=== PATIENT | female | born 1945 | race Caucasian/White ===

== ENCOUNTER 2022-06-07 15:52 | Emergency (ER) | payer MEDICARE, OTHER, SELFPAY ==
[2022-06-07 16:07] VITALS: BP 101/58; PULSE 88; O2SAT 97; BMI 16.8
[2022-06-07 16:14] VITALS: BP 115/78; PULSE 79; RESP 22; TEMP 36.5; O2SAT 97
--- NOTE | 2022-06-07 16:29 | ED_ITS ---
HPI - Syncope General Chief Complaint: General Medical Stated Complaint: diaphoretic Time Seen by Provider: 06/07/22 16:28 Source: patient Limitations: no limitations History of Present Illness HPI narrative: Patient very poor historian and rude to the staff history of lung cancer followed by Rebeka villarreal at [place] was at shopping store where she felt lightheaded and passed out her friend was next to her patient did not fall no injuries no seizures patient denies any chest pain or palpitation. Patient had lab work done lately and was told that sodium is low yesterday. At this time patient is feeling back to normal Related Data Allergies Allergy/AdvReac Type Severity Reaction Status Date / Time Penicillins AdvReac Anaphylaxis Verified 06/07/22 17:34 Review of Systems Review of Systems: Yes all other systems are reviewed and are negative [facility] Past Medical History Medical History (Updated 06/08/22 @ 00:01 by Adeline Plata) Lung cancer Social History Social History Alcohol intake: never Patient Tobacco Use Status: Never used Tobacco Use of substances other than those prescribed or required for medical reasons: No Advance Directives: No Advance Directives Information Provided: Yes Physical Exam Vital Signs: Vital Signs: Last Vital Signs Temp 97.7 F 06/07/22 16:14 Pulse 86 06/07/22 19:16 Resp 15 06/07/22 18:32 BP 148/92 H 06/07/22 19:16 Pulse Ox 97 06/07/22 18:32 O2 Del Method 06/07/22 18:32 BMI result Body Mass Index 16.8 Appearance: Alert. Oriented X3. No acute distress. Eyes: PERRLA, No Nystagmus ENT: Pharynx normal. Oral Mucosa moist Neck: Normal inspection. Neck supple. CVS: Normal heart rate and rhythm. Pulses normal. Respiratory: No respiratory distress. Equal air entry bilateral, no wheezing/rales/rhonchi Abdomen: Soft and nontender. Bowel sounds are present, no mass palpable, no CVA tenderness Skin: Skin warm and dry. Normal skin color. Normal skin turgor. Extremities: No lower extremity edema. No calf tenderness Neuro: Oriented X 3. No motor deficit. No sensory deficit.No cerebellar signs , cranial nerves II-XII intact MDM - Syncope MDM Narrative Medical decision making narrative: Patient with stable labs no orthostatics had any syncope episode likely from medics source feeling much better after IV fluids discharge patient home patient's sodium is 134 potassium 5.3 EKG without any ischemic changes no cardiac arrhythmias noticed high sensitive troponin negative Lab Data Attestation: I reviewed the patient's lab results. Result diagrams: 06/07/22 17:06 06/07/22 17:06 Labs: Lab Results 06/07/22 06/07/22 06/07/22 Range/Units 17:06 17:06 17:06 WBC 14.8 H (4.8-10.8) X10*3/uL RBC 4.60 (4.20-5.50) X10*6/uL Hgb 13.9 (12.0-16.0) g/dl Hct 42.0 (37.0-47.0) % MCV 91.3 (80.0-98.0) fL MCH 30.2 (27.0-33.0) pg MCHC 33.1 (31.0-35.0) g/dl RDW 13.0 (11.0-16.0) % Plt Count 176 (160-400) X10*3/uL MPV 9.7 (9.4-12.3) fL Immature Gran % (Auto) 0.5 H (0.0-0.4) % Neut % (Auto) 87.4 H (45-73) % Lymph % (Auto) 5.9 L (20-40) % [place] % (Auto) 5.6 (2-11) % Eos % (Auto) 0.3 (0-4) % Baso % (Auto) 0.3 (0-2) % Lymph # (Auto) 0.9 L (1.2-4.9) X10*3/uL [place] # (Auto) 0.8 (0.1-1.2) X10*3/uL Eos # (Auto) 0.0 (0.0-0.4) X10*3/uL Baso # (Auto) 0.0 (0.0-0.2) X10*3/uL Abs Immat Gran (auto) 0.07 H (0.00-0.03) X10*3/uL Absolute Neuts (auto) 13.0 H (2.0-8.3) x10*3/uL Absolute Nucleated RBC 0.000 (0.0-0.012) X10*3/uL Nucleated RBC % (auto) 0.0 (0.0-0.2) /100WBC PT (10.0-13.1) SEC INR (0.9-1.1) D-Dimer High Sensitivty NG/ML Sodium 134 L (135-145) mmol/L Potassium 5.3 H (3.3-5.1) mmol/L Chloride 100 (96-108) mmol/L Carbon Dioxide 22 (22-29) mmol/L Anion Gap 17 (12-20) BUN 26 H (9-16) mg/dL Creatinine 0.97 (0.5-1.4) mg/dL Estim Creat Clear Calc 33.0 Estimated GFR 56 Random Glucose 120 H (60-115) mg/dL Calcium 9.2 (8.4-10.2) mg/dL Magnesium 2.0 (1.6-2.6) mg/dL Total Bilirubin 0.7 (0.0-1.0) mg/dL AST 56 H (5-31) U/L ALT 33 H (0-31) U/L Alkaline Phosphatase 63 (39-117) U/L Troponin I High Sens < 3.5 (<3.5-17.0) ng/L Total Protein 6.6 (6.5-8.0) g/dL Albumin 4.4 (3.5-5.0) g/dL Urine Color Urine Appearance Urine pH (5.0-8.0) Ur Specific [place] (1.005-1.025) Urine Protein (NEG-TRACE) MG/DL Urine Glucose (UA) (NEG) MG/DL Urine Ketones (NEG) MG/DL Urine Blood (NEG) Urine Nitrite (NEG) Ur Leukocyte Esterase (NEG) COVID-19 (REAGAN) (Negative) COVID-19 Clin Com 06/07/22 06/07/22 06/07/22 Range/Units 17:06 17:06 17:06 WBC (4.8-10.8) X10*3/uL RBC (4.20-5.50) X10*6/uL Hgb (12.0-16.0) g/dl Hct (37.0-47.0) % MCV (80.0-98.0) fL MCH (27.0-33.0) pg MCHC (31.0-35.0) g/dl RDW (11.0-16.0) % Plt Count (160-400) X10*3/uL MPV (9.4-12.3) fL Immature Gran % (Auto) (0.0-0.4) % Neut % (Auto) (45-73) % Lymph % (Auto) (20-40) % [place] % (Auto) (2-11) % Eos % (Auto) (0-4) % Baso % (Auto) (0-2) % Lymph # (Auto) (1.2-4.9) X10*3/uL [place] # (Auto) (0.1-1.2) X10*3/uL Eos # (Auto) (0.0-0.4) X10*3/uL Baso # (Auto) (0.0-0.2) X10*3/uL Abs Immat Gran (auto) (0.00-0.03) X10*3/uL Absolute Neuts (auto) (2.0-8.3) x10*3/uL Absolute Nucleated RBC (0.0-0.012) X10*3/uL Nucleated RBC % (auto) (0.0-0.2) /100WBC PT 11.2 (10.0-13.1) SEC INR 1.0 (0.9-1.1) D-Dimer High Sensitivty 210 NG/ML Sodium (135-145) mmol/L Potassium (3.3-5.1) mmol/L Chloride (96-108) mmol/L Carbon Dioxide (22-29) mmol/L Anion Gap (12-20) BUN (9-16) mg/dL Creatinine (0.5-1.4) mg/dL Estim Creat Clear Calc Estimated GFR Random Glucose (60-115) mg/dL Calcium (8.4-10.2) mg/dL Magnesium (1.6-2.6) mg/dL Total Bilirubin (0.0-1.0) mg/dL AST (5-31) U/L ALT (0-31) U/L Alkaline Phosphatase (39-117) U/L Troponin I High Sens (<3.5-17.0) ng/L Total Protein (6.5-8.0) g/dL Albumin (3.5-5.0) g/dL Urine Color Urine Appearance Urine pH (5.0-8.0) Ur Specific [place] (1.005-1.025) Urine Protein (NEG-TRACE) MG/DL Urine Glucose (UA) (NEG) MG/DL Urine Ketones (NEG) MG/DL Urine Blood (NEG) Urine Nitrite (NEG) Ur Leukocyte Esterase (NEG) COVID-19 (REAGAN) Negative (Negative) COVID-19 Clin Com See Note 06/07/22 Range/Units 18:21 WBC (4.8-10.8) X10*3/uL RBC (4.20-5.50) X10*6/uL Hgb (12.0-16.0) g/dl Hct (37.0-47.0) % MCV (80.0-98.0) fL MCH (27.0-33.0) pg MCHC (31.0-35.0) g/dl RDW (11.0-16.0) % Plt Count (160-400) X10*3/uL MPV (9.4-12.3) fL Immature Gran % (Auto) (0.0-0.4) % Neut % (Auto) (45-73) % Lymph % (Auto) (20-40) % [place] % (Auto) (2-11) % Eos % (Auto) (0-4) % Baso % (Auto) (0-2) % Lymph # (Auto) (1.2-4.9) X10*3/uL [place] # (Auto) (0.1-1.2) X10*3/uL Eos # (Auto) (0.0-0.4) X10*3/uL Baso # (Auto) (0.0-0.2) X10*3/uL Abs Immat Gran (auto) (0.00-0.03) X10*3/uL Absolute Neuts (auto) (2.0-8.3) x10*3/uL Absolute Nucleated RBC (0.0-0.012) X10*3/uL Nucleated RBC % (auto) (0.0-0.2) /100WBC PT (10.0-13.1) SEC INR (0.9-1.1) D-Dimer High Sensitivty NG/ML Sodium (135-145) mmol/L Potassium (3.3-5.1) mmol/L Chloride (96-108) mmol/L Carbon Dioxide (22-29) mmol/L Anion Gap (12-20) BUN (9-16) mg/dL Creatinine (0.5-1.4) mg/dL Estim Creat Clear Calc Estimated GFR Random Glucose (60-115) mg/dL Calcium (8.4-10.2) mg/dL Magnesium (1.6-2.6) mg/dL Total Bilirubin (0.0-1.0) mg/dL AST (5-31) U/L ALT (0-31) U/L Alkaline Phosphatase (39-117) U/L Troponin I High Sens (<3.5-17.0) ng/L Total Protein (6.5-8.0) g/dL Albumin (3.5-5.0) g/dL Urine Color YELLOW Urine Appearance CLEAR Urine pH 6.0 (5.0-8.0) Ur Specific [place] 1.010 (1.005-1.025) Urine Protein NEG (NEG-TRACE) MG/DL Urine Glucose (UA) NEG (NEG) MG/DL Urine Ketones 15 (NEG) MG/DL Urine Blood NEG (NEG) Urine Nitrite NEG (NEG) Ur Leukocyte Esterase NEG (NEG) COVID-19 (REAGAN) (Negative) COVID-19 Clin Com ECG Data Attestation: I personally reviewed and interpreted this ECG as follows: Interpretation: Normal sinus rhythm heart rate 77 beats per minute normal interval normal axis no acute ST wave changes no acute skin Discharge Plan Discharge Clinical Impression: Near syncope Patient Disposition: Home, Self-Care Instructions: Heat Exhaustion (ED), Near Syncope (ED) Additional Instructions: Drink plenty of fluid Stay in cool/shaded area Follow-up with your PCP Interventions: ED Discharge Assessment Last Done: 06/07/22 19:45 Discharge Date/Time: 06/07/22 19:46
--- NOTE | 2022-06-07 16:40 | ECG_ITS ---
Test Reason : SYNCOPE Blood Pressure : / mmHG Vent. Rate : 077 BPM Atrial Rate : 077 BPM P-R Int : 102 ms QRS Dur : 056 ms QT Int : 418 ms P-R-T Axes : 062 006 016 degrees QTc Int : 473 ms Sinus rhythm with short NH with Premature ventricular complexes Otherwise normal ECG No previous ECGs available Referred By: José Manuel Ochoa Electronically Signed By:KEN BAUMANN MD
[2022-06-07] MEDS: 0.9 % Sodium Chloride 1,000 ML 999 ML IV (16:59)
[2022-06-07 17:12] LABS: MANUAL DIFF FLAG NO
[2022-06-07 17:16] LABS: Basophils Percent Auto 0.3 % (0-2); Eosinophils Percent Auto 0.3 % (0-4); Hemoglobin 13.9 g/dl (12.0-16.0); Imm Gran Abs Auto 0.07 X10*3/uL (0.00-0.03); Imm Gran Pct Auto 0.5 % (0.0-0.4); Lymphocytes Absolute Auto 0.9 X10*3/uL (1.2-4.9); Lymphocytes Percent Auto 5.9 % (20-40); Mean Corpuscular HGB Conc 33.1 g/dl (31.0-35.0); Mean Corpuscular Hemoglobin 30.2 pg (27.0-33.0); Mean Corpuscular Volume 91.3 fL (80.0-98.0); Mean Platelet Volume 9.7 fL (9.4-12.3); Monocytes Absolute Auto 0.8 X10*3/uL (0.1-1.2); Monocytes Percent Auto 5.6 % (2-11); Neutrophils Percent Auto 87.4 % (45-73); Platelet Count 176 X10*3/uL (160-400); White Blood Count 14.8 X10*3/uL (4.8-10.8)
[2022-06-07 17:25] LABS: Prothrombin Time 11.2 SEC (10.0-13.1)
[2022-06-07 17:27] LABS: D Dimer High Sensitivity 210 NG/ML
[2022-06-07 17:28] LABS: COVID-19 Test Negative (Negative); IDNOW Serial# 16C4AD1C
[2022-06-07 17:39] LABS: Alanine Aminotransferase 33 U/L (0-31); Albumin Level 4.4 g/dL (3.5-5.0); Alkaline Phosphatase 63 U/L (39-117); Anion Gap 17 (12-20); Aspartate Amino Transferase 56 U/L (5-31); Bilirubin Total 0.7 mg/dL (0.0-1.0); Blood Urea Nitrogen 26 mg/dL (9-16); Calcium 9.2 mg/dL (8.4-10.2); Carbon Dioxide 22 mmol/L (22-29); Chloride 100 mmol/L (96-108); Estimated Glomerular Filt Rate 56; Glucose Random 120 mg/dL (60-115); Potassium 5.3 mmol/L (3.3-5.1); Sodium 134 mmol/L (135-145); Total Protein 6.6 g/dL (6.5-8.0)
[2022-06-07 17:42] LABS: Troponin-I High Sensitivity < 3.5 ng/L (<3.5-17.0)
[2022-06-07 18:32] VITALS: BP 126/90; PULSE 77; RESP 15; O2SAT 97
[2022-06-07 18:33] LABS: Appearance Urine CLEAR; Color Urine YELLOW; Glucose Urine UA NEG (NEG); Leukocyte Esterase Urine NEG (NEG); Nitrite Urine NEG (NEG); Urine Blood NEG (NEG); Urine Ketones 15 MG/DL (NEG); Urine Protein NEG (NEG-TRACE)
[2022-06-07 19:15] VITALS: BP 147/96; BP 151/92; PULSE 80; PULSE 82
[2022-06-07 19:16] VITALS: BP 148/92; PULSE 86
== END 2022-06-07 19:46 | disposition home or self-care (01) ==
PROVIDERS: Emergency Provider Internal Medicine
DX: R55 Syncope and collapse (principal); Z20.822 Contact with and (suspected) exposure to COVID-19; Z85.118 Personal history of other malignant neoplasm of bronchus and lung
CPT/HCPCS: 36415; 80053; 81003; 83735; 84484; 85025; 85379; 85610; 87635; 93005; 96360; 99284

== ENCOUNTER 2024-05-23 18:59 | Emergency (ER) | payer MEDICARE, OTHER, SELFPAY ==
--- NOTE | 2024-05-23 | ECG_ITS ---
Test Reason : SYNCOPE Blood Pressure : / mmHG Vent. Rate : 065 BPM Atrial Rate : 065 BPM P-R Int : 128 ms QRS Dur : 072 ms QT Int : 448 ms P-R-T Axes : 064 017 090 degrees QTc Int : 465 ms Normal sinus rhythm Nonspecific ST and T wave abnormality Abnormal ECG When compared with ECG of 07-JUN-2022 17:43, Premature ventricular complexes are no longer Present Referred By: Generic ED Physician Electronically Signed By:KEN BAUMANN MD
[2024-05-23 19:10] VITALS: BP 124/70; BP 146/76; PULSE 62; PULSE 64; RESP 16; TEMP 36.2; O2SAT 100; O2SAT 94; BMI 19.3
[2024-05-23 19:47] LABS: MANUAL DIFF FLAG NO
[2024-05-23 19:49] LABS: Basophils Absolute Auto 0.1 X10*3/uL (0.0-0.2); Basophils Percent Auto 0.4 % (0-2); Eosinophils Absolute Auto 0.1 X10*3/uL (0.0-0.4); Eosinophils Percent Auto 0.8 % (0-4); Hematocrit 40.9 % (37.0-47.0); Hemoglobin 13.6 g/dl (12.0-16.0); Imm Gran Abs Auto 0.07 X10*3/uL (0.00-0.03); Imm Gran Pct Auto 0.5 % (0.0-0.4); Lymphocytes Absolute Auto 1.4 X10*3/uL (1.2-4.9); Lymphocytes Percent Auto 10.2 % (20-40); Mean Corpuscular HGB Conc 33.3 g/dl (31.0-35.0); Mean Corpuscular Hemoglobin 31.2 pg (27.0-33.0); Mean Corpuscular Volume 93.8 fL (80.0-98.0); Mean Platelet Volume 9.8 fL (9.4-12.3); Monocytes Absolute Auto 0.7 X10*3/uL (0.1-1.2); Monocytes Percent Auto 4.9 % (2-11); Neutrophils Absolute Auto 11.6 x10*3/uL (2.0-8.3); Neutrophils Percent Auto 83.2 % (45-73); Platelet Count 158 X10*3/uL (160-400); Red Blood Count 4.36 X10*6/uL (4.20-5.50); Red Cell Distribution Width 13.2 % (11.0-16.0); White Blood Count 13.9 X10*3/uL (4.8-10.8)
[2024-05-23 20:01] LABS: Alanine Aminotransferase 17 U/L (0-31); Albumin Level 4.4 g/dL (3.5-5.0); Alkaline Phosphatase 73 U/L (39-117); Anion Gap 19 (12-20); Aspartate Amino Transferase 26 U/L (5-31); Bilirubin Direct 0.2 mg/dL (0.0-0.5); Bilirubin Total 0.7 mg/dL (0.0-1.0); Blood Urea Nitrogen 20 mg/dL (9-16); Calcium 9.5 mg/dL (8.4-10.2); Carbon Dioxide 21 mmol/L (22-29); Chloride 107 mmol/L (96-108); Creatinine Clr Calc Pharmacy 30.9; Estimated Glomerular Filt Rate 47; Glucose Random 160 mg/dL (60-115); Lipase 16 U/L (8-78); Potassium 3.5 mmol/L (3.3-5.1); Sodium 143 mmol/L (135-145); Total Protein 6.6 g/dL (6.5-8.0)
[2024-05-23 20:08] LABS: Troponin-I High Sensitivity 6.4 ng/L (<3.5-17.0)
[2024-05-23 20:50] LABS: Appearance Urine Cloudy; Color Urine Dark Yellow; Glucose Urine UA 100 mg/dL (Negative); Leukocyte Esterase Urine Negative (Negative); Nitrite Urine Negative (Negative); Specific Gravity - Urine >= 1.030 (1.005-1.025); Urine Blood Negative (Negative); Urine Ketones Trace mg/dL (Negative); Urine Protein Trace mg/dL (Neg-Trace)
--- NOTE | 2024-05-23 21:55 | PC.NURSE ---
Son Per [phone] left number, to be called if patient needs a ride home.
[2024-05-23 22:20] VITALS: BP 150/83; PULSE 61; RESP 16; TEMP 36.4; O2SAT 99
--- NOTE | 2024-05-23 22:24 | ED_ITS ---
HPI - General Adult General Chief complaint: Syncope Stated complaint: syncope Time Seen by Provider: 05/23/24 22:13 Source: patient, EMS and RN notes reviewed Mode of arrival: EMS Limitations: altered mental status History of Present Illness ED Provider: missy [facility] narrative: Patient is a 78-year-old female with lung cancer followed by [facility] emergency department after witnessed syncopal episode at [employer] prior to arrival. According to EMS report, witnesses lowered patient to the floor and she did not have a head strike. She is not anticoagulated. Patient denies any complaints and states that she wants to leave the emergency department. She denies chest pain, palpitations, shortness of breath. Denies dizziness or lightheadedness. Denies headache or changes in vision. Patient's son reports concern for onset of dementia. Reports history of similar episodes in the past where patient has left her home to go on a walk and has had a syncopal episode. Patient states that she lives home alone. Patient is refusing to answer questions regarding place and time. Son states that it is typical of patient to refuse to answer questions even if she does know the correct answer. Patient had a physical with PCP this morning and son confirms this. complaint: syncope Onset (ago): minute(s) Associated symptoms: denies other symptoms Treatments prior to arrival: none Related Data Allergies Allergy/AdvReac Type Severity Reaction Status Date / Time Penicillins AdvReac Severe Anaphylaxis Verified 05/23/24 19:13 Review of Systems 2 Review of Systems: As per HPI. Yes all other systems are reviewed and are negative Constitutional: Constitutional: Reports as per HPI [facility] Past Medical History Medical History (Updated 05/23/24 @ 23:55 by Stephany Torres NP) Lung cancer Social History Social History Alcohol intake: never Patient Tobacco Use Status: Never used Tobacco Smoked in Last 30 Days: No Advance Directives: Yes Advance Directives Information Provided: No Advance Directives on File: No Physical Exam ED Vital Signs: Vital Signs - 24 hr 05/23/24 19:10 05/23/24 22:20 05/23/24 22:47 Temperature 97.2 F 97.6 F Pulse Rate 62 61 68 Respiratory Rate 16 16 Blood Pressure 146/76 H 150/83 H 155/97 H Pulse Oximetry 100 99 Oxygen Delivery Method Room Air Room Air 05/23/24 22:48 05/23/24 22:48 Temperature Pulse Rate 74 80 Respiratory Rate Blood Pressure 136/115 H 173/88 H Pulse Oximetry Oxygen Delivery Method BMI result Body Mass Index 19.3 Vital signs have been reviewed and appear to be correct. Blood pressure elevated. Heart rate normal. Respiratory rate normal. Temperature normal. Oxygen saturation normal. Const Other: Patient able to state she is at the hospital, but refusing to state which hospital. Reports that she is refusing to state the date. General: no acute distress, alert and awake Nutritional Appearance: average body habitus Orientation/consciousness: oriented to person Limitations: behavioral limitations HENMT Head: Yes normocephalic and Yes atraumatic Ears: external ears normal General nose exam: Normal external nose present Face and sinus: Yes face symmetric Mouth: oropharynx normal and moist mucous membranes Throat: Yes uvula midline Eyes Pupils: Equal, round and reactive pupils present Neck Neck: Yes normal visual inspection and Yes supple Resp Effort & Inspection: normal respiratory effort and able to speak in complete sentences Auscultation: clear to auscultation bilaterally Cardio Rate: regular rate Rhythm: regular rhythm Heart sounds: S1 normal heart sound present and S2 normal heart sound present GI Palpation (GI): Soft to palpation and nontender Auscultation: normoactive bowel sounds General: Yes no CVA tenderness Back/Spine/Pelvis Back: no CVA tenderness Skin General skin exam: elasticity normal and turgor normal Neuro General: oriented to person, moves all extremities, no focal motor deficits and CN's II-XI intact bilaterally Cranial nerves: Yes Equal, round and reactive pupils present Extrem General: Yes full ROM, Yes no pedal edema and Yes no calf tenderness Psych Attitude: cooperative (minimally) Medical Decision Making Medical Decision Making MDM Narrative: Patient is a 78-year-old female with lung cancer followed by [facility] presenting emergency department after witnessed syncopal episode at [employer] prior to arrival. On exam patient is awake, A+Ox3, VS WNL, afebrile, normal neurological exam without focal deficits, physical exam findings as above. Given reported symptoms and physical exam findings, initial differential includes ACS, dehydration, electrolyte abnormality, cardiac arrhythmia, anemia, orthostatic intolerance, UTI. No red flag findings concerning for AAA rupture, aortic dissection, SAH/ICH. EKG shows normal sinus rhythm. Labs notable for mild leukocytosis, troponin of 6.4, repeat downtrending, no significant electrolyte abnormalities. No evidence of infection on urinalysis. Patient refusing any additional interventions. Son at bedside and in agreement with patient's refusals, is willing and comfortable with taking patient home. Differential Diagnosis Differential Diagnoses: The differential diagnosis associated with the presentation includes As per [facility]. Admission/Observation Consideration of admission/observation: Escalation of care including admission/observation considered Patient would have been admitted to the hospital had their work up had any findings where hospital admission was appropriate and their clinical presentation warranted hospital admission. Lab Data [facility] Lab Attestation statement: I reviewed the patient's lab results. as per [facility] 05/23/24 19:43 05/23/24 19:43 Labs: Lab Results 05/23/24 05/23/24 05/23/24 Range/Units 19:43 20:43 22:38 WBC 13.9 H (4.8-10.8) X10*3/uL RBC 4.36 (4.20-5.50) X10*6/uL Hgb 13.6 (12.0-16.0) g/dl Hct 40.9 (37.0-47.0) % MCV 93.8 (80.0-98.0) fL MCH 31.2 (27.0-33.0) pg MCHC 33.3 (31.0-35.0) g/dl RDW 13.2 (11.0-16.0) % Plt Count 158 L (160-400) X10*3/uL MPV 9.8 (9.4-12.3) fL Immature Gran % (Auto) 0.5 H (0.0-0.4) % Neut % (Auto) 83.2 H (45-73) % Lymph % (Auto) 10.2 L (20-40) % [place] % (Auto) 4.9 (2-11) % Eos % (Auto) 0.8 (0-4) % Baso % (Auto) 0.4 (0-2) % Lymph # (Auto) 1.4 (1.2-4.9) X10*3/uL [place] # (Auto) 0.7 (0.1-1.2) X10*3/uL Eos # (Auto) 0.1 (0.0-0.4) X10*3/uL Baso # (Auto) 0.1 (0.0-0.2) X10*3/uL Abs Immat Gran (auto) 0.07 H (0.00-0.03) X10*3/uL Absolute Neuts (auto) 11.6 H (2.0-8.3) x10*3/uL Absolute Nucleated RBC 0.000 (0.0-0.012) X10*3/uL Nucleated RBC % (auto) 0.0 (0.0-0.2) /100WBC Sodium 143 (135-145) mmol/L Potassium 3.5 (3.3-5.1) mmol/L Chloride 107 (96-108) mmol/L Carbon Dioxide 21 L (22-29) mmol/L Anion Gap 19 (12-20) BUN 20 H (9-16) mg/dL Creatinine 1.11 (0.5-1.4) mg/dL Estim Creat Clear Calc 30.9 Estimated GFR 47 Random Glucose 160 H (60-115) mg/dL Calcium 9.5 (8.4-10.2) mg/dL Total Bilirubin 0.7 (0.0-1.0) mg/dL Direct Bilirubin 0.2 (0.0-0.5) mg/dL AST 26 (5-31) U/L ALT 17 (0-31) U/L Alkaline Phosphatase 73 (39-117) U/L Troponin I High Sens 6.4 5.2 (<3.5-17.0) ng/L Total Protein 6.6 (6.5-8.0) g/dL Albumin 4.4 (3.5-5.0) g/dL Lipase 16 (8-78) U/L Urine Color Dark Yellow Urine Appearance Cloudy Urine pH 5.0 (5.0-9.0) Ur Specific [place] >= 1.030 H (1.005-1.025) Urine Protein Trace (Neg-Trace) mg/dL Urine Glucose (UA) 100 H (Negative) mg/dL Urine Ketones Trace (Negative) mg/dL Urine Blood Negative (Negative) Urine Nitrite Negative (Negative) Ur Leukocyte Esterase Negative (Negative) Independent Interpretation I performed an independent interpretation of an: EKG (normal sinus rhythm, rate 65bpm, normal SC interval, no significant change from prior) Independent Historian Clinical information obtained from an independent historian. History obtained from or confirmed by: Other (son, Per) External Record Review External record reviewed: Inpatient record, Office record and Outpatient record Discharge Plan Discharge Clinical Impression: Syncope Patient Disposition: Home, Self-Care Instructions: Syncope (DC) Additional Instructions: You were evaluated in the emergency department today after an episode of syncope (fainting). Your evaluation including EKG, labs, and urinalysis did not show evidence of conditions requiring emergent medical treatment at this time. Follow up with your primary care provider within the next 1-2 days. Return to the emergency department if you develop chest pain, shortness of breath or difficulty breathing, palpitations, fever, dizziness or lightheadedness, severe headache, additional episodes of fainting or any other concerning symptoms. Print Language: [place]
[2024-05-23 22:47] VITALS: BP 155/97; PULSE 68
[2024-05-23 22:48] VITALS: BP 136/115; BP 173/88; PULSE 74; PULSE 80
[2024-05-23 23:21] LABS: Troponin-I High Sensitivity 5.2 ng/L (<3.5-17.0)
[2024-05-24 00:01] VITALS: BP 173/88; PULSE 80; RESP 18; TEMP 36.8; O2SAT 99
== END 2024-05-24 00:03 | disposition home or self-care (01) ==
PROVIDERS: Registered Nurse Emergency; Emergency Provider Internal Medicine
DX: R55 Syncope and collapse (principal); C34.90 Malignant neoplasm of unspecified part of unspecified bronchus or lung
CPT/HCPCS: 36415; 80053; 81003; 82248; 83690; 84484; 85025; 93005; 99284; 99285

== ENCOUNTER → 2024-05-23 19:33 | Outpatient (BNV) | payer MEDICARE, OTHER, SELFPAY | PROVIDERS: Emergency Provider Internal Medicine; Visit Provider Internal Medicine Cardiovascular Disease | DX: R94.31 Abnormal electrocardiogram [ECG] [EKG] (principal) | CPT/HCPCS: 93010 ==

== ENCOUNTER 2025-02-19 19:31 | Emergency (ER) | payer MEDICARE, OTHER, SELFPAY ==
[2025-02-19 19:38] VITALS: PULSE 75; O2SAT 98
[2025-02-19 19:49] VITALS: BP 159/110; PULSE 82; RESP 20; TEMP 36.9; O2SAT 97; BMI 18.7
--- NOTE | 2025-02-19 19:53 | ECG_ITS ---
Test Reason : SYNCOPE Blood Pressure : */* mmHG Vent. Rate : 66 BPM Atrial Rate : 66 BPM P-R Int : 106 ms QRS Dur : 68 ms QT Int : 444 ms P-R-T Axes : 26 13 64 degrees QTcB Int : 465 ms Sinus rhythm with short [place] with Premature supraventricular complexes Increased R/S ratio in V1, consider early transition or posterior infarct Abnormal ECG When compared with ECG of 23-May-2024 19:33, Premature supraventricular complexes are now Present Referred By: Generic ED Physician Electronically Signed By: KEN BAUMANN MD
--- NOTE | 2025-02-19 19:58 | MHC.EDTECH ---
Pt refusing to be moved to a room and have EKG done at this time. RN aware.
--- NOTE | 2025-02-19 20:21 | MHC.EDTECH ---
Pt family brought back to see pt. Pt now agreeable to be moved to room and EKG was done. Pt ambulated to bathroom with steady gait and no assist. UA collected and sent. Pt agreeable to have blood drawn after initially refusing. Pt still refusing to be changed over. RN aware
[2025-02-19 20:24] LABS: Basophils Absolute Auto 0.1 X10*3/uL (0.0-0.2); Basophils Percent Auto 0.7 % (0-2); Eosinophils Absolute Auto 0.1 X10*3/uL (0.0-0.4); Eosinophils Percent Auto 1.2 % (0-4); Hematocrit 39.2 % (37.0-47.0); Hemoglobin 13.2 g/dl (12.0-16.0); Imm Gran Abs Auto 0.03 X10*3/uL (0.00-0.03); Imm Gran Pct Auto 0.3 % (0.0-0.4); Lymphocytes Absolute Auto 1.2 X10*3/uL (1.2-4.9); Lymphocytes Percent Auto 13.6 % (20-40); MANUAL DIFF FLAG NO; Mean Corpuscular HGB Conc 33.7 g/dl (31.0-35.0); Mean Corpuscular Hemoglobin 31.4 pg (27.0-33.0); Mean Corpuscular Volume 93.3 fL (80.0-98.0); Mean Platelet Volume 9.6 fL (9.4-12.3); Monocytes Absolute Auto 0.7 X10*3/uL (0.1-1.2); Monocytes Percent Auto 7.7 % (2-11); Neutrophils Percent Auto 76.5 % (45-73); Platelet Count 150 X10*3/uL (160-400); Red Cell Distribution Width 12.9 % (11.0-16.0); White Blood Count 9.1 X10*3/uL (4.8-10.8)
[2025-02-19 20:25] LABS: Appearance Urine Clear; Color Urine Yellow; Glucose Urine UA Negative (Negative); Leukocyte Esterase Urine Moderate (2+) (Negative); Nitrite Urine Negative (Negative); PH 5.5 (5.0-9.0); UMIC TRIGGER UACC YES; Urine Blood Trace (Negative); Urine Ketones Trace mg/dL (Negative); Urine Protein Negative (Neg-Trace)
[2025-02-19 20:33] LABS: Bacteria Urine None Seen (None Seen); Hyaline Casts Urine 0-2 /LPF (0-2); RBC Urine 0-2 /HPF (0-2); Squamous Epithelial Cell Urine 0-2 /HPF (0-2); UACC Culture Trigger YES
[2025-02-19 20:39] LABS: Alanine Aminotransferase 20 U/L (0-31); Albumin Level 4.1 g/dL (3.5-5.0); Alkaline Phosphatase 78 U/L (39-117); Anion Gap 13 (12-20); Aspartate Amino Transferase 33 U/L (5-31); Bilirubin Total 0.5 mg/dL (0.0-1.0); Blood Urea Nitrogen 22 mg/dL (9-16); Carbon Dioxide 22 mmol/L (22-29); Chloride 109 mmol/L (96-108); Estimated Glomerular Filt Rate > 60; Glucose Random 97 mg/dL (60-115); Potassium 4.1 mmol/L (3.3-5.1); Sodium 140 mmol/L (135-145); Total Protein 6.1 g/dL (6.5-8.0)
[2025-02-19 20:46] LABS: Troponin-I High Sensitivity 3.9 ng/L (<3.5-17.0)
[2025-02-19] MEDS: Nitrofurantoin Monohyd/M-Cryst 100 MG CAPSULE PO (22:06)
[2025-02-19 22:08] VITALS: BP 182/93; PULSE 69
[2025-02-19 22:10] VITALS: BP 173/84; PULSE 72
[2025-02-19 22:13] VITALS: BP 171/76; PULSE 77
--- NOTE | 2025-02-19 22:16 | ED_ITS ---
HPI - General Adult General Chief complaint: Syncope Stated complaint: syncopal episode Time Seen by Provider: 02/19/25 21:36 Source: patient and family Limitations: no limitations and other (Mild cognitive impairment) History of Present Illness ED Provider: Mansi Valdez PA-C HPI narrative: 79-year-old female with underlying mild cognitive impairment presents after syncopal episode today. Patient was at the grocery store when she felt faint and began to collapse. She was caught and lowered to the ground. She did not fully lose consciousness. There was no head strike. The patient was not on a blood thinner. Patient states she did not eat today. Denies recent cough or cold symptoms, nausea vomiting diarrhea, dysuria, fever. Patient has had similar episodes in the past related to a urinary tract infection. Patient is here with family members who corroborate the story. Related Data Previous Rx's ?Medication ?Instructions ?Recorded nitrofurantoin 100 mg PO Q12H #13 caps 02/19/25 monohydrate/macrocrystals 100 mg capsule (Macrobid) Allergies Allergy/AdvReac Type Severity Reaction Status Date / Time Penicillins AdvReac Severe Anaphylaxis Verified 02/19/25 19:52 Review of Systems 2 Review of Systems: Yes all other systems are reviewed and are negative Constitutional: Constitutional: Denies fatigue, Denies fever(s) and Denies headache(s) ENT: Denies headache(s) Cardiovascular: Cardiovascular: Denies chest pain, Reports syncope and Denies dyspnea Respiratory: Respiratory: Denies cough and Denies dyspnea Gastrointestinal: Gastrointestinal: Denies abdominal pain, Denies diarrhea, Denies nausea and Denies vomiting Genitourinary: Genitourinary: Denies dysuria Neurologic: Reports syncope and Denies headache(s) Endocrine: Endocrine: Denies fatigue [facility] Past Medical History Attestation statement: The following information was validated with the patient. Medical History (Updated 02/20/25 @ 00:00 by Adeline Plata) Lung cancer Social History Social History Alcohol intake: never Patient Tobacco Use Status: Never used Tobacco Advance Directives: No Advance Directives Information Provided: Yes Physical Exam ED Vital Signs: Vital Signs - 24 hr 02/19/25 19:49 02/19/25 22:08 02/19/25 22:10 Temperature 98.4 F Pulse Rate 82 69 72 Respiratory Rate 20 Blood Pressure 159/110 H 182/93 H 173/84 H Pulse Oximetry 97 Oxygen Delivery Method Room Air 02/19/25 22:13 Temperature Pulse Rate 77 Respiratory Rate Blood Pressure 171/76 H Pulse Oximetry Oxygen Delivery Method BMI result Body Mass Index 18.7 Const Other: Alert well-appearing sitting up in bed eating Orientation/consciousness: patient oriented x3 Resp Effort & Inspection: normal respiratory effort Cardio Other: Normal peripheral perfusion Skin Other: Warm dry no rash Neuro General: patient oriented x3, gait normal, no focal motor deficits and CN's II- XI intact bilaterally Psych Other: Cooperative Course Reevaluation(s) Reevaluation #1: Orthostatic appropriate Medications Administered Discontinued Medications Generic Name Dose Route Start Last Admin Trade Name Freq PRN Reason Stop Dose Admin Nitrofurantoin Macrocrystals 100 mg 02/19/25 22:02 02/19/25 22:06 Nitrofurantoin Monohyd/M-Cryst 100 Mg Capsule PO 02/19/25 22:03 100 mg ONCE ONE Administration Medical Decision Making Medical Decision Making [facility] Narrative: 79-year-old female with underlying mild cognitive impairment presents after syncopal episode today. Patient was at the grocery store when she felt faint and began to collapse. She was caught and lowered to the ground. She did not fully lose consciousness. There was no head strike. The patient was not on a blood thinner. Patient states she did not eat today. Denies recent cough or cold symptoms, nausea vomiting diarrhea, dysuria, fever. Patient has had similar episodes in the past related to a urinary tract infection. Patient is here with family members who corroborate the story. Problem: Age, cognitive impairment, prior syncope History: Per patient I have considered the following differential diagnoses: Electrolyte abnormality, dehydration, anemia, ACS, UTI, orthostasis Plan: Per the family in the patient's she has had similar episodes in the past in the setting of infection. We will be screening labs including a urinalysis. Also considering underlying cardiac pathology, adding EKG and troponin. The patient did not sustain an injury, imaging not warranted. We will check orthostatics. I have independently reviewed the following tests: Labs: No leukocytosis, not anemic, no electrolyte abnormality, troponin within normal range, evidence of urinary tract infection EKG: Sinus rhythm with PVCs, no ischemic changes, rate 66, QTC 465 Lab Data 02/19/25 20:15 02/19/25 20:15 Labs: Lab Results 02/19/25 Range/Units 20:15 WBC 9.1 (4.8-10.8) X10*3/uL RBC 4.20 (4.20-5.50) X10*6/uL Hgb 13.2 (12.0-16.0) g/dl Hct 39.2 (37.0-47.0) % MCV 93.3 (80.0-98.0) fL MCH 31.4 (27.0-33.0) pg MCHC 33.7 (31.0-35.0) g/dl RDW 12.9 (11.0-16.0) % Plt Count 150 L (160-400) X10*3/uL MPV 9.6 (9.4-12.3) fL Immature Gran % (Auto) 0.3 (0.0-0.4) % Neut % (Auto) 76.5 H (45-73) % Lymph % (Auto) 13.6 L (20-40) % [place] % (Auto) 7.7 (2-11) % Eos % (Auto) 1.2 (0-4) % Baso % (Auto) 0.7 (0-2) % Lymph # (Auto) 1.2 (1.2-4.9) X10*3/uL [place] # (Auto) 0.7 (0.1-1.2) X10*3/uL Eos # (Auto) 0.1 (0.0-0.4) X10*3/uL Baso # (Auto) 0.1 (0.0-0.2) X10*3/uL Abs Immat Gran (auto) 0.03 (0.00-0.03) X10*3/uL Absolute Neuts (auto) 7.0 (2.0-8.3) x10*3/uL Absolute Nucleated RBC 0.000 (0.0-0.012) X10*3/uL Nucleated RBC % (auto) 0.0 (0.0-0.2) /100WBC Sodium 140 (135-145) mmol/L Potassium 4.1 (3.3-5.1) mmol/L Chloride 109 H (96-108) mmol/L Carbon Dioxide 22 (22-29) mmol/L Anion Gap 13 (12-20) BUN 22 H (9-16) mg/dL Creatinine 0.82 (0.5-1.4) mg/dL Estim Creat Clear Calc 40.0 Estimated GFR > 60 Random Glucose 97 (60-115) mg/dL Calcium 9.0 (8.4-10.2) mg/dL Total Bilirubin 0.5 (0.0-1.0) mg/dL AST 33 H (5-31) U/L ALT 20 (0-31) U/L Alkaline Phosphatase 78 (39-117) U/L Troponin I High Sens 3.9 (<3.5-17.0) ng/L Total Protein 6.1 L (6.5-8.0) g/dL Albumin 4.1 (3.5-5.0) g/dL Urine Color Yellow Urine Appearance Clear Urine pH 5.5 (5.0-9.0) Ur Specific [place] 1.020 (1.005-1.025) Urine Protein Negative (Neg-Trace) mg/dL Urine Glucose (UA) Negative (Negative) mg/dL Urine Ketones Trace (Negative) mg/dL Urine Blood Trace H (Negative) Urine Nitrite Negative (Negative) Ur Leukocyte Esterase Moderate (2+) H (Negative) Urine RBC 0-2 (0-2) /HPF Urine WBC 11-20 H (0-5) /HPF Ur Squamous Epith Cells 0-2 (0-2) /HPF Urine Bacteria None Seen (None Seen) Hyaline Casts 0-2 (0-2) /LPF Discharge Plan Discharge Clinical Impression: Vasovagal syncope, Urinary tract infection Patient Disposition: Home, Self-Care Instructions: Urinary Tract Infection in Older Adults (ED), Syncope in Older Adults (ED) Additional Instructions: You were found to have a urinary tract infection. See home care instructions. Take the Macrobid as directed. The presence of an infection, could have caused your syncopal episode. The remainder of your screening labs including a cardiac enzyme were normal. There were no concerning changes on your EKG when compared to an older study. Follow up with your primary care provider as needed. Prescriptions: New nitrofurantoin monohyd/m-cryst [Macrobid] 100 mg capsule 100 mg PO Q12H Qty: 13 0RF Rx Instructions: must administer with a meal/food Interventions: ED Discharge Assessment Last Done: 02/19/25 22:31 Discharge Date/Time: 02/19/25 22:32 Print Language: Yoruba
[2025-02-19 22:31] VITALS: BP 171/76; PULSE 77; RESP 20; TEMP 36.8; O2SAT 97
== END 2025-02-19 22:32 | disposition home or self-care (01) ==
PROVIDERS: Emergency Provider Emergency Medicine
DX: R55 Syncope and collapse (principal); N39.0 Urinary tract infection, site not specified
CPT/HCPCS: 36415; 80053; 81001; 84484; 85025; 87086; 93005; 99283; 99284

== ENCOUNTER → 2025-02-19 19:53 | Outpatient (BNV) | payer MEDICARE, OTHER, SELFPAY | PROVIDERS: Emergency Provider Emergency Medicine; Visit Provider Internal Medicine Cardiovascular Disease | DX: I49.1 Atrial premature depolarization (principal) | CPT/HCPCS: 93010 ==

== ENCOUNTER 2025-09-18 13:38 | Emergency (ER) | payer MEDICARE, OTHER, SELFPAY ==
--- NOTE | ~2025-09-18 | CT_ITS ---
CLINICAL HISTORY: altered mental status CT head without contrast Comparison: None Findings: No intracranial mass, midline shift, hydrocephalus, or acute hemorrhage. No CT evidence of acute ischemia. 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 Visualized paranasal sinuses and mastoid air cells normal. Orbits unremarkable. No skull fracture Impression: 1. No acute intracranial abnormalities. This document has been electronically signed by: Armando Price MD on 09/18/2025 18:22:26
[2025-09-18 14:01] VITALS: BP 176/107; PULSE 73; RESP 16; TEMP 36.4; O2SAT 99; BMI 20.3
--- NOTE | 2025-09-18 14:03 | ED_ITS ---
HPI - General Adult General Chief complaint: Altered Mental Status Stated complaint: General Medical Time Seen by Provider: 09/18/25 16:01 Source: patient, RN notes reviewed and old records reviewed Mode of arrival: ambulatory Limitations: no limitations History of Present Illness ED Provider: Saud SUERO narrative: 80-year-old female with a past medical history significant for mild cognitive impairment presents for evaluation of increasing confusion Per the patient's son, the patient lives alone. She has had worsening cognitive decline over the last few weeks manifested with paranoia She has been calling the patient and requesting help but then not able to explain what she needs help with. She has been forgetting to eat and drink. The patient's son reports the patient had a UTI a few months ago and is concerned this is a similar presentation. The patient is ?feisty but not combative The patient's son reports the patient is also sleeping through most of the day and awake most of the night which is unusual for her She denies any pain, denies any fevers, chills, cough, shortness of breath pain Denies any abdominal pain, nausea vomiting, diarrhea. She is requesting to be discharged home Related Data Previous Rx's ?Medication ?Instructions ?Recorded nitrofurantoin 100 mg PO Q12H #13 caps 02/04 04/30 monohydrate/macrocrystals 100 mg capsule (Macrobid) nitrofurantoin macrocrystal 100 mg 100 mg PO Q12H #13 caps 09/18/25 capsule nitrofurantoin 100 mg PO BID 7 days #14 cap s 09/19/25 monohydrate/macrocrystals 100 mg capsule (Macrobid) Allergies Allergy/AdvReac Type Severity Reaction Status Date / Time Penicillins AdvReac Severe Anaphylaxis Verified 09/18/25 14:05 Review of Systems 2 Constitutional: Constitutional: Denies body ache(s), Denies chills, Denies excessive sweating, Denies fever(s), Denies frequent falls, Denies headache(s) and Denies weakness Eyes: Eyes: Denies blurry vision ENT: Denies vertigo, Denies dizziness, Denies headache(s) and Denies disequilibrium Cardiovascular: Cardiovascular: Denies chest pain and Denies dyspnea on exertion Respiratory: Respiratory: Denies cough and Denies dyspnea on exertion Gastrointestinal: Gastrointestinal: Denies abdominal pain, Denies nausea and Denies vomiting Musculoskeletal: Musculoskeletal: Denies abnormal gait and Denies back pain Integumentary/Breasts: Skin/Breast: Denies rash Neurologic: Denies abnormal gait, Reports behavioral changes, Reports confusion, Denies vertigo, Denies dizziness, Denies frequent falls, Denies headache(s), Denies lack of coordination, Reports memory loss, Denies seizure- like activity, Denies disequilibrium and Denies weakness Psychiatric: Psychiatric: Reports behavioral changes, Reports confusion, Reports irritability, Reports memory loss and Reports paranoia Endocrine: Endocrine: Denies excessive sweating [facility] Past Medical History Medical History (Updated 09/19/25 @ 00:00 by Adeline Plata) Lung cancer Social History Social History Alcohol intake: never Patient Tobacco Use Status: Never used Tobacco Physical Exam ED Vital Signs: Vital Signs - 24 hr 09/18/25 14:01 09/18/25 15:38 09/18/25 16:56 Temperature 97.5 F 97.8 F Pulse Rate 73 68 70 Respiratory Rate 16 18 Blood Pressure 176/107 H 166/87 H 174/91 H Pulse Oximetry 99 99 97 Oxygen Delivery Method Room Air Room Air Room Air BMI result Body Mass Index 20.3 Const General: cooperative, healthy appearing, comfortable, no acute distress, alert, awake, Physically active and confusion Nutritional Appearance: well nourished Orientation/consciousness: oriented to person and confusion HENMT Head: Yes normocephalic and Yes atraumatic Eyes Eyelids: Yes eyelids normal Conjunctivae: conjunctivae normal Sclerae: sclerae normal Corneas: corneas normal Pupils: Equal, round and reactive pupils present EOM: EOMs intact bilaterally Neck Neck: Yes full ROM Resp Effort & Inspection: normal respiratory effort, able to speak in complete sentences and not labored GI Inspection: No distended Palpation (GI): Soft to palpation, not firm, nontender, no guarding and not rigid Auscultation: normoactive bowel sounds Skin General skin exam: elasticity normal Neuro General: oriented to person and confusion Cranial nerves: Yes CN's II-XII intact bilaterally, Yes Equal, round and reactive pupils present and Yes Bilaterally intact EOM present Extrem Other: Moving all extremities well without any obvious deformities Course Course Course Narrative: RME: 80 yold female brought by son for confusion and deteriorarting cognitve abilities. Patient lives alone as per son. labs ordered Reevaluation(s) Reevaluation #1: The patient's urinalysis does appear to be infected which could be contributing to her encephalopathy. CT scan did not show any concerning findings. I discussed possible admission for UTI encephalopathy versus short-term rehab placement while the patient's mental status is clearing. The patient will like to go home and the patient's son is willing take her home. He feels that she is safe at home it and we will check on her twice a day to make sure she is taking her antibiotic. Return precautions were given Time: 19:01 Medications Administered Discontinued Medications Generic Name Dose Route Start Last Admin Trade Name Freq PRN Reason Stop Dose Admin Nitrofurantoin Macrocrystals 100 mg 09/18/25 18:54 09/18/25 19:01 Nitrofurantoin Monohyd/M-Cryst 100 Mg Capsule PO 09/18/25 18:55 100 mg ONCE ONE Administration Medical Decision Making Medical Decision Making [facility] Narrative: 80-year-old female presenting for evaluation of increasing confusion, calm declined, sleep disturbances full paranoia. She is quite well, vital signs are stable, her physical exam is reassuring. She likely has an underlying dementia which may be exacerbated by an acute UTI encephalopathy. Her urinalysis is pending. I did order a CT scan of the brain as she has not had any in his system and the patient's son reports that he is unaware of any recent head CTs. Her symptoms are likely due to advancing dementia. Final disposition will be determined pending urinalysis if there is a metabolic cause of her increasing confusion Differential Diagnosis Differential Diagnoses: The differential diagnosis associated with the presentation includes UTI Encephalopathy Intracranial hemorrhage Alzheimer's dementia Admission/Observation Consideration of admission/observation: Escalation of care including admission/observation considered Lab Data [facility] Lab Attestation statement: I reviewed the patient's lab results. No leukocytosis or significant anemia. Normal platelet count. No electrolyte abnormalities warranting mentioned. The patient has a slightly elevated BUN to 25 which seems to be her baseline. Creatinine within normal limits. 09/18/25 14:11 09/18/25 14:11 Labs: Lab Results 09/18/25 09/18/25 Range/Units 14:11 16:39 WBC 7.9 (4.8-10.8) X10*3/uL RBC 4.37 (4.20-5.50) X10*6/uL Hgb 14.0 (12.0-16.0) g/dl Hct 40.8 (37.0-47.0) % MCV 93.4 (80.0-98.0) fL MCH 32.0 (27.0-33.0) pg MCHC 34.3 (31.0-35.0) g/dl RDW 14.3 (11.0-16.0) % Plt Count 186 (160-400) X10*3/uL MPV 9.1 L (9.4-12.3) fL Immature Gran % (Auto) 0.3 (0.0-0.4) % Neut % (Auto) 74.5 H (45-73) % Lymph % (Auto) 16.0 L (20-40) % [place] % (Auto) 8.1 (2-11) % Eos % (Auto) 0.6 (0-4) % Baso % (Auto) 0.5 (0-2) % Lymph # (Auto) 1.3 (1.2-4.9) X10*3/uL [place] # (Auto) 0.6 (0.1-1.2) X10*3/uL Eos # (Auto) 0.1 (0.0-0.4) X10*3/uL Baso # (Auto) 0.0 (0.0-0.2) X10*3/uL Abs Immat Gran (auto) 0.02 (0.00-0.03) X10*3/uL Absolute Neuts (auto) 5.9 (2.0-8.3) x10*3/uL Absolute Nucleated RBC 0.000 (0.0-0.012) X10*3/uL Nucleated RBC % (auto) 0.0 (0.0-0.2) /100WBC Sodium 138 (135-145) mmol/L Potassium 3.7 (3.3-5.1) mmol/L Chloride 104 (96-108) mmol/L Carbon Dioxide 25 (22-29) mmol/L Anion Gap 13 (12-20) BUN 25 H (9-16) mg/dL Creatinine 0.88 (0.5-1.4) mg/dL Estim Creat Clear Calc 36.0 Estimated GFR > 60 Random Glucose 92 (60-115) mg/dL Calcium 9.6 D (8.4-10.2) mg/dL Total Bilirubin 1.0 (0.0-1.0) mg/dL AST 54 H (5-31) U/L ALT 53 H (0-31) U/L Alkaline Phosphatase 68 (39-117) U/L Ammonia < 14 (13-55) umol/L Total Creatine Kinase 263 H (26-140) U/L Total Protein 7.1 (6.5-8.0) g/dL Albumin 4.8 (3.5-5.0) g/dL Urine Color Yellow Urine Appearance Clear Urine pH 6.5 (5.0-9.0) Ur Specific [place] 1.025 (1.005-1.025) Urine Protein Trace (Neg-Trace) mg/dL Urine Glucose (UA) Negative (Negative) mg/dL Urine Ketones Trace (Negative) mg/dL Urine Blood Negative (Negative) Urine Nitrite Negative (Negative) Ur Leukocyte Esterase Large (3+) H (Negative) Urine RBC 0-2 (0-2) /HPF Urine WBC 21-50 H (0-5) /HPF Ur Squamous Epith Cells 0-2 (0-2) /HPF Urine Bacteria None Seen (None Seen) Hyaline Casts 0-2 (0-2) /LPF Discharge Plan Discharge Clinical Impression: Acute confusion, Urinary tract infection Patient Disposition: Home, Self-Care Instructions: Urinary Tract Infection in Older Adults (ED) Additional Instructions: Lashawn tested positive for urinary tract infection. We are treating her with Macrobid, take 1 pill twice daily for 1 full week. Follow up with your primary doctor, return for new or worsening symptoms Prescriptions: New nitrofurantoin macrocrystal 100 mg capsule 100 mg PO Q12H Qty: 13 0RF Rx Instructions: must administer with a meal/food nitrofurantoin monohyd/m-cryst [Macrobid] 100 mg capsule 100 mg PO BID 7 Days Qty: 14 0RF Rx Instructions: must administer with a meal/food No Action nitrofurantoin monohyd/m-cryst [Macrobid] 100 mg capsule 100 mg PO Q12H Qty: 13 0RF Rx Instructions: must administer with a meal/food Interventions: ED Discharge Assessment Last Done: 09/18/25 19:03 Discharge Date/Time: 09/18/25 19:04 Print Language: Citizen [place]
[2025-09-18 14:17] LABS: MANUAL DIFF FLAG NO
[2025-09-18 14:19] LABS: Hematocrit 40.8 % (37.0-47.0); Hemoglobin 14.0 g/dl (12.0-16.0); Imm Gran Abs Auto 0.02 X10*3/uL (0.00-0.03); Imm Gran Pct Auto 0.3 % (0.0-0.4); Lymphocytes Absolute Auto 1.3 X10*3/uL (1.2-4.9); Mean Corpuscular HGB Conc 34.3 g/dl (31.0-35.0); Mean Corpuscular Hemoglobin 32.0 pg (27.0-33.0); Mean Corpuscular Volume 93.4 fL (80.0-98.0); NRBC Abs Auto 0.000 X10*3/uL (0.0-0.012); NRBC Pct Auto 0.0 /100WBC (0.0-0.2); Platelet Count 186 X10*3/uL (160-400); Red Blood Count 4.37 X10*6/uL (4.20-5.50); White Blood Count 7.9 X10*3/uL (4.8-10.8)
[2025-09-18 14:31] LABS: Ammonia < 14 umol/L (13-55)
[2025-09-18 14:43] LABS: Albumin Level 4.8 g/dL (3.5-5.0); Alkaline Phosphatase 68 U/L (39-117); Anion Gap 13 (12-20); Aspartate Amino Transferase 54 U/L (5-31); Blood Urea Nitrogen 25 mg/dL (9-16); Calcium 9.6 mg/dL (8.4-10.2); Carbon Dioxide 25 mmol/L (22-29); Chloride 104 mmol/L (96-108); Creatinine Clr Calc Pharmacy 36.0; Estimated Glomerular Filt Rate > 60; Potassium 3.7 mmol/L (3.3-5.1); Sodium 138 mmol/L (135-145); Total Protein 7.1 g/dL (6.5-8.0)
[2025-09-18 15:00] LABS: Alanine Aminotransferase 53 U/L (0-31)
[2025-09-18 15:38] VITALS: BP 166/87; PULSE 68; TEMP 36.6; O2SAT 99
[2025-09-18 16:53] LABS: Appearance Urine Clear; Glucose Urine UA Negative (Negative); PH 6.5 (5.0-9.0); Specific Gravity - Urine 1.025 (1.005-1.025); UMIC TRIGGER UACC YES
[2025-09-18 16:56] VITALS: BP 174/91; PULSE 70; RESP 18; O2SAT 97
--- NOTE | 2025-09-18 17:02 | PC.NURSE ---
pt is alert and answering most questions appropriately, knows the month, the president but just cant remember what she had for dinner last night, son reports that the pt lives by herself and he is noticing that the pt's short term memory is declining lately to the point that the pt is not eating or drinking as much as she should, pt denies pain at this time
[2025-09-18 17:49] LABS: UACC Culture Trigger YES
--- OUTSIDE RECORDS SUMMARY | 2025-09-18 18:43 | XMS_ITS | Encounter Summary ---
Author Organization [facility] Address [address] [place] [address] Phone Care Team Providers Care Hosiery Mater Name Role Phone Diomedes Odonnell MD Unavailable [phone] Gavi Black MD Unavailable [phone] Luisito Mckeon MD Unavailable Unavailable Luisito Mckeon MD Primary Care Provider Unavail able Adina Mac RN Unavailable [phone] Luciana Brennan RN Unavailable [email or web address] Alonso Pickett MD Unavailable [phone] Cally Tolliver Unavailable Michelle [email or web address] Encounter Details Date Type Department Care Team (Late st Contact Info) Description [facility] [place] [place] [address] [address] Social History Tobacco Use Types Packs/Day Years Used Date Smoking Tobacco: Passive Smo ke Exposure - Never Smoker Smokeless Tobacco: Never Alcohol Use Standard Drinks/Week Comments No 0 (1 standard drink = 0.6 oz pur e alcohol) Comments No Sex and Gender Information Value Date Recorded Sex Assigned at Female 11/13/2017 9:38 AM EST Legal Sex Female 1:09 PM EDT Gender Identity Not on file Sexual Orientation Not on file documented as of this encounter Functional Status * Patient is deaf or has serious difficulty with hearing Answer Date of Assessment Author No 08/19/2017 7:47 AM Pricilla Denson PA-C * 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 serious difficulty with seeing, even when wearing glasses Answer Date of Assessment Author No 08/19/2017 7:47 AM Pricilla Denson PA-C * Patient has serious difficulty walking or climbing stairs (5yr old or older) Answer Date of Assessment Author No 08/19/2017 7:47 AM Pricilla Denson PA-C * Patient has serious difficulty dressing or bathing (5yr old or older) Answer Date of Assessment Author No 08/19/2017 7:47 AM Pricilla Denson PA-C * Patient has serious difficulty doing errands alone such as visiting a doctor???s office or shopping, due to physical, mental, or emotional condition (15 years old or older) Answer Date of Assessment Author No 08/19/2017 7:47 AM Pricilla Denson PA-C documented as of this encounter Mental Status * Patient has serious difficulty concentrating, remembering, or making decisions due to physical, mental, or emotional condition Answer Entry Date Author No 08/19/2017 7:47 AM Pricilla Denson PA-C documented in this encounter Plan of Treatment Not on file documented as of this encounter Visit Diagnoses Not on filedocumented in this encounter Care Teams Hosiery Mater Relationship Specialty Start Date End Date Luisito Mckeon MD PCP - General Endocrinology 10/11/17 Diomedes Odonnell MD [address] [place] [address] [address] [place] [address] [email or web address] Thoracic Surgery 07/11/17 Gavi Black MD [address] [place] [email or web address] Hematology and Oncology 07/18/17 Luisito Mckeon MD Primary Care Physician Endocrinology 10/02/17 Adina Mac, RN [address] [place] [address] [email or web address] Primary Infusion Nurse 11/08/17 Luciana Brennan RN [address] [place] [address] [email or web address] Primary Infusion Nurse 11/08/17 Alonso Pickett MD [address] [place] [address] Dr Fiore [address] [place] [address] [id number] Gynecologic Oncology 12/13/18 Cally Tolliver LICSW [address] [place] [address] Dr Fiore [address] [place] [email or web address] Commercial Plumber Oncology 12/29/21 documented as of this encounter Additional Source Comments The information contained in this document represents components of the legal health record. It is not the complete legal health record.[facility]
--- OUTSIDE RECORDS SUMMARY | 2025-09-18 18:43 | XMS_ITS | Encounter Summary ---
Author Organization [facility] Address [address] [place] [address] Phone Care Team Providers Care Voltage Inspector Name Role Phone Diomedes Odonnell MD Unavailable [phone] Gavi Black MD Unavailable [phone] Luisito Mckeon MD Unavailable Unavailable Luisito Mckeon MD Primary Care Provider Unavail able Adina Mac RN Unavailable [phone] Luciana Brennan RN Unavailable [email or web address] Alonso Pickett MD Unavailable [phone] Cally Tolliver Unavailable [email or web address] Encounter Details Date Type Department Care Team (Late st Contact Info) Description 01/10/2022 [facility] [place] [place] [address] [address] Social History Tobacco Use Types [...] on filedocumented in this encounter Care Teams Voltage Inspector Relationship Specialty Start Date End Date Luisito Mckeon MD PCP - General Endocrinology 10/11/17 Diomedes Odonnell MD [address] [place] [address] [address] [place] [address] [email or web address] Surgery 07/11/17 Gavi Black MD [address] [place] [email or web address] Hematology and Oncology 07/18/17 Luisito Mckeon MD Primary Care Physician Endocrinology 10/02/17 Adina Mac, RN [address] [place] [address] [email or web address] Primary Infusion Nurse 11/08/17 Luciana Brennan RN [address] [place] [address] [email or web address] Primary Infusion Nurse 11/08/17 Alonso Pickett MD [address] [place] [address] Dr Fiore [address] [place] [address] [phone] Gynecologic Oncology 12/13/18 Cally Tolliver LICSW [address] [place] [address] Dr Fiore [address] [place] [id number] [email or web address] Corporate Executive Oncology 12/29/21 documented as of this encounter Additional Source Comments The information contained in this document represents components of the legal health record. It is not the complete legal health record.[facility]
--- OUTSIDE RECORDS SUMMARY | 2025-09-18 18:43 | XMS_ITS | Encounter Summary ---
Author Organization [facility] Address [address] [place] [address] Phone Care Team Providers Care Sewing Machine Mechanic Name Role Phone Diomedes Odonnell MD Unavailable [phone] Gavi Black MD Unavailable [phone] Luisito Mckeon MD Unavailable Unavailable Luisito Mckeon MD Primary Care Provider Unavail able Adina Mac RN Unavailable [phone] Luciana Brennan RN Unavailable OSVALDO BRENNAN@[facility].[email or web address].[facility] Alonso Pickett MD Unavailable [phone] Cally Tolliver Unavailable Michelle Tolliver@[facility].[email or web address].[facility] Encounter Details Date Type Department Care Team (Late st Contact Info) Description 06/09/2021 Ancillary Orders [facility], [facility], [facility] [address] [place] [address], 9th [place] [address] Vito Infante MD [address] [place] [phone] [email or web address] Social History Tobacco Use Types Packs/Day Years [...] of Assessment Author No 08/19/2017 7:47 AM EDT Pricilla Simons PA-C * 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 [...] of Assessment Author No 08/19/2017 7:47 AM EDT Pricilla Simons PA-C * Patient has serious difficulty doing [...] on filedocumented in this encounter Care Teams Sewing Machine Mechanic Relationship Specialty Start Date End Date Luisito Mckeon MD PCP - General Endocrinology 10/11/17 Diomedes Odonnell MD [address] [place] [address] YAKELIN@[facility] Thoracic Surgery 07/11/17 Gavi Black MD [address] [place] [address] Matt@[email or web address] Hematology and Oncology 07/18/17 Luisito Mckeon MD Primary Care Physician Endocrinology 10/02/17 Adina Mac, RN [address] [place] [address] [email or web address]@[email or web address] Primary Infusion Nurse 11/08/17 Luciana Brennan, RN [address] [place] [address] XAVIER@[facility] Primary Infusion Nurse 11/08/17 Alonso Pickett MD [address] [place] [address] Dr [address] [place] [address] Gynecologic Oncology 12/13/18 Cally Tolliver LICSW [address] [place] [address] Dr Fi[address] [place] [address] Alexia@[facility] Visiting Nurse Oncology 12/29/21 documented as of this encounter Additional Source Comments The information contained in this document represents components of the legal health record. It is not the complete legal health record.[facility]
--- OUTSIDE RECORDS SUMMARY | 2025-09-18 18:43 | XMS_ITS | Encounter Summary ---
Author Organization [facility] Address [address] [place] [address] Phone Care Team Providers Care Store Stock Help Name Role Phone Luisito Mckeon MD Primary Care Provider Unavail able Joy Bermudez MD Unavailable Shagufta Plunkett MD Unavailable [phone] Bry Bartholomew MD Unavailable Unavailable Diomedes Odonnell MD Unavailable [phone] Gavi Black MD Unavailable [phone] Diomedes Odonnell MD Unavailable [phone] Unknown, Unknown Primary Care Provider Namrata Herrera RN Unavailable [phone] Kenn Hennessy MD Unavailable [phone] Luisito Mckeon MD Unavailable Unavailable Masha Garcia RN Unavailable edward@ [facility].[place] Luisito Mckeon MD Primary Care Provider Unavail able Adina Mac RN Unavailable [phone] Luciana Brennan RN Unavailable OSVALDO BRENNAN@[email or web address].[email or web address].[facility] Alonso Pickett MD Unavailable [phone] Cally TolliverSW Unavailable Mikikarina Unruly@[email or web address] Encounter Details Date Type Department Care Team (Late st Contact Info) Description 07/13/2017 Procedure Pass [facility] [address] [place] [address] Social History Tobacco Use Types Packs/Day Years Used Date Smoking Tobacco: Never Assessed Comments Unknown Sex and Gender Information Value Date Recorded Sex Assigned at Female 11/13/2017 9:38 AM EST Legal Sex Female 1:09 PM EDT Gender Identity Not on file Sexual Orientation Not on file documented as of this encounter Plan of Treatment Not on file documented as of this encounter Visit Diagnoses Not on filedocumented in this encounter Care Teams Store Stock Help Relationship Specialty Start Date End Date Luisito Mckeon MD PCP - General Endocrinology 07/07/17 08/31/17 Unknown, Mesha, [address] [place] [address] PCP - General 09/01/17 10/10/17 Luisito Mckeon MD PCP - General Endocrinology 10/11/17 Joy Bermudez MD Thoracic Surgery 07/11/17 10/01/17 Shagufta Plunkett MD [address] [place] [address] 07/11/17 10/01/17 Bry Bartholomew MD [address] [place] [address] Internal Medicine 07/11/17 10/01/17 Diomedes Odonnell MD [address] [place] [address] YAKELIN@[email or web address] Thoracic Surgery 07/11/17 Gavi Black MD [address] [place] [address] [email or web address] Hematology and Oncology 07/18/17 Diomedes Odonnell MD [address] [place] [address] YAKELIN@[facility] Referring Physician Thoracic Surgery 07/19/17 10/01/17 Namrata Petty RN [address] [place] [address] ROBBY@[facility] Primary Infusion Nurse 09/15/17 09/18/17 Kenn Hennessy MD [address] [place] [address] Internal Medicine 10/02/17 01/24/18 Luisito Mckeon MD Primary Care Physician Endocrinology 10/02/17 Masha Garcia, RN [address] [place] [address] [email or web address] Primary Infusion Nurse 10/09/17 11/07/17 Adina Mac, RN [address] [place] [address] Osmin@[email or web address] Primary Infusion Nurse 11/08/17 Luciana Brennan, RN [address] [place] [address] XAVIER@[facility] Primary Infusion Nurse 11/08/17 Alonso Pickett MD [address] [place] [address] [address] [place] [address] [phone] Gynecologic Oncology 12/13/18 Cally Tolliver LICSW [address] [place] [address] Dr Fiore [address] [place] [address] Alexia@[email or web address] Felt Hat Steamer Oncology 12/29/21 documented as of this encounter Additional Source Comments The information contained in this document represents components of the legal health record. It is not the complete legal health record.[facility]
--- OUTSIDE RECORDS SUMMARY | 2025-09-18 18:43 | XMS_ITS | Encounter Summary ---
Author Organization [facility] Address [address] [place] [address] Phone Care Team Providers Care Knitting Machine Operator Automatic Name Role Phone Diomedes Odonnell MD Unavailable [phone] Gavi Black MD Unavailable [phone] Luisito Mckeon MD Unavailable Unavailable uLisito Mckeon MD Primary Care Provider Unavail able Adina Mac RN Unavailable [phone] Luciana Brennan RN Unavailable OSVALDO BRENNAN@[email or web address] Alonso Pickett MD Unavailable [phone] Cally Tolliver Unavailable Michelle Tolliver@[email or web address] Encounter Details Date Type Department Care Team (Late st Contact Info) Description 01/10/2022 [facility] [place] [place] [address] [address] Social History Tobacco Use Types [...] on filedocumented in this encounter Care Teams Knitting Machine Operator Automatic Relationship Specialty Start Date End Date Luisito Mckeno MD PCP - General Endocrinology 10/11/17 Diomedes Odonnell MD [address] [place] [address] [address] [place] [address] YAKELIN@[email or web address] Thoracic Surgery 07/11/17 Gavi Black MD [address] [place] [address] [email or web address] Hematology and Oncology 07/18/17 Luisito Mckeon MD Primary Care Physician Endocrinology 10/02/17 Adina Mac, RN [address] [place] [address] [email or web address] Primary Infusion Nurse 11/08/17 Luciana Brennan RN [address] [place] [address] [email or web address] Primary Infusion Nurse 11/08/17 Alonso Pickett MD [address] [place] [address] Dr Fi[address] [place] [address] [phone] Gynecologic Oncology 12/13/18 Cally Tolliver LICSW [address] [place] [address] Dr Fi[address] [place] [address] Alexia@[email or web address] Pool Hand Oncology 12/29/21 documented as of this encounter Additional Source Comments The information contained in this document represents components of the legal health record. It is not the complete legal health record.[facility]
--- OUTSIDE RECORDS SUMMARY | 2025-09-18 18:43 | XMS_ITS | Encounter Summary ---
Author Organization [facility] Address [address] [place] [address] Phone Care Team Providers Care Manager Shipping Name Role Phone Diomedes Odonnell MD Unavailable [phone] Gavi Black MD Unavailable [phone] Kenn Hennessy MD Unavailable [phone] Luisito Mckeon MD Unavailable Unavailable Luisito Mckeon MD Primary Care Provider Unavail able Adina Mac RN Unavailable [phone] Luciana Brennan RN Unavailable OSVALDO BRENNAN@[email or web address].[facility] Alonso Pickett MD Unavailable [phone] Cally Tolliver Unavailable Michelle Tolliver@[email or web address].[facility] Encounter Details Date Type Department Care Team (Late st Contact Info) Description 01/01/2018 Procedure Pass [facility] Periop [address] [place] [address] Social History Tobacco Use Types Packs/Day Years [...] of Assessment Author No 08/19/2017 7:47 AM BLAST Pricilla Simons PA-C * Patient has serious difficulty walking [...] on filedocumented in this encounter Care Teams Manager Shipping Relationship Specialty Start Date End Date Luisito Mckeon MD PCP - General Endocrinology 10/11/17 Diomedes Odonnell MD [address] [place] [address] YAKELIN@[email or web address] Thoracic Surgery 07/11/17 Gavi Black MD [address] [place] [address] [email or web address] Hematology and Oncology 07/18/17 Kenn Hennessy MD [address] [place] [address] Internal Medicine 10/02/17 01/24/18 Luisito Mckeon MD Primary Care Physician Endocrinology 10/02/17 Adina Mac, RHONA [address] [place] [address] Osmin@[email or web address]. [facility] Primary Infusion Nurse 11/08/17 Luciana Brennan RN [address] [place] [address] XAVIER@[facility] Primary Infusion Nurse 11/08/17 Alonso Pickett MD [address] [place] [address] Dr Fi[address] [place] [address] Gynecologic Oncology 12/13/18 Cally Tolliver LICSW [address] [place] [address] Dr Fi[address] [place] [address] Alexia@[email or web address] .[facility] Multimedia Technician Oncology 12/29/21 documented as of this encounter Additional Source Comments The information contained in this document represents components of the legal health record. It is not the complete legal health record.[facility]
--- OUTSIDE RECORDS SUMMARY | 2025-09-18 18:43 | XMS_ITS | Encounter Summary ---
Author Organization [facility] Address [address] [place] [address] Phone Care Team Providers Care Facilities And Grounds Director Name Role Phone Diomedes Odonnell MD Unavailable [phone] Gavi Black MD Unavailable [phone] Luisito Mckeon MD Unavailable Unavailable Luisito Mckeon MD Primary Care Provider Unavail able Adina Mac RN Unavailable [phone] Luciana Brennan RN Unavailable OSVALDO BRENNAN@[email or web address].[email or web address] Alonso Pickett MD Unavailable [phone] Cally Tolliver Unavailable Michelle Tolliver@[email or web address] Encounter Details Date Type Department Care Team (Late st Contact Info) Description 03/07/2022 [facility] [place] [address] [address] Social History Tobacco Use Types [...] on filedocumented in this encounter Care Teams Facilities And Grounds Director Relationship Specialty Start Date End Date Luisito Mckeon MD PCP - General Endocrinology 10/11/17 Diomedes Odonnell MD [address] [place] [address] 261 [place] [address] YAKELIN@[email or web address] Thoracic Surgery 07/11/17 Gavi Black MD [address] [place] [address] [email or web address] Hematology and Oncology 07/18/17 Luisito Mckeon MD Primary Care Physician Endocrinology 10/02/17 Adina Mac, RN [address] [place] [address] [email or web address] Primary Infusion Nurse 11/08/17 Luciana Brennan RN [address] [place] [address] XAVIER@[email or web address] Primary Infusion Nurse 11/08/17 Alonso Pickett MD [address] [place] [address] Dr [address] [place] [address] [phone] Gynecologic Oncology 12/13/18 Cally Tolliver LICSW [address] [place] [address] Dr Fiore [address] [place] [address] Alexia@[facility] Obstetrics Teacher Oncology 12/29/21 documented as of this encounter Additional Source Comments The information contained in this document represents components of the legal health record. It is not the complete legal health record.[facility]
--- OUTSIDE RECORDS SUMMARY | 2025-09-18 18:43 | XMS_ITS | Encounter Summary ---
Author Organization [facility] Address [address] [place] [address] Phone Care Team Providers Care Early Morning Name Role Phone Diomedes Odonnell MD Unavailable [phone] Gavi Black MD Unavailable [phone] Luisito Mckeon MD Unavailable Unavailable Luisito Mckeon MD Primary Care Provider Unavail able Adina Mac RN Unavailable [phone] Luciana Brennan RN Unavailable OSVALDO BRENNAN@[email or web address] Alonso Pickett MD Unavailable [phone] Cally Tolliver Unavailable Michelle Tolliver@[email or web address] Encounter Details Date Type Department Care Team (Late st Contact Info) Description 06/19/2024 [facility] [place] [address] [facility] [address] [place] [address] Social History Tobacco Use Types Packs/Day Years Used Date Smoking Tobacco: Passive Smo ke Exposure - Never Smoker Smokeless Tobacco: Never Alcohol Use Standard Drinks/Week Comments No 0 (1 standard drink = 0.6 oz pur e alcohol) Education Answer Date Recorded Are you interested in more education? Not on faith e 03/03/2023 Are you concerned about learning? Not on file 03/03/2023 No 03/03/2023 No 03/03/2023 Digital Access Answer Date Recorded No 04/03/2023 No 04/03/2023 Reliable internet access at home? Not on file 04/03/2023 Device with a working camera? Not on file Comments No Sex and Gender Information Value [...] on filedocumented in this encounter Care Teams Early Morning Relationship Specialty Start Date End Date Luisito Mckeon MD PCP - General Endocrinology 10/11/17 Diomedes Odonnell MD [address] [place] [address] YAKELIN@[facility] Thoracic Surgery 07/11/17 Gavi Black MD [address] [place] [address] Matt@[email or web address] Hematology and Oncology 07/18/17 Luisito Mckeon MD Primary Care Physician Endocrinology 10/02/17 Adina Mac, RN [address] [place] [address] Osmin@[facility] Primary Infusion Nurse 11/08/17 Luciana Brennan RN [address] [place] [address] XAVIER@[facility] Primary Infusion Nurse 11/08/17 Alonso Pickett MD [address] [place] [address] Dr [address] [place] [address] Gynecologic Oncology 12/13/18 Cally Tolliver LICSW [address] [place] [address] Dr Fiore [address] [place] [address] Alexia@[email or web address] Imcu Nurse Oncology 12/29/21 documented as of this encounter Additional Source Comments The information contained in this document represents components of the legal health record. It is not the complete legal health record.[facility]
--- OUTSIDE RECORDS SUMMARY | 2025-09-18 18:43 | XMS_ITS | Encounter Summary ---
Author Organization [facility] Address [address] [place] [address] Phone Care Team Providers Care Eligibility And Occupancy Interviewer Name Role Phone Diomedes Odonnell MD Unavailable Gavi Black MD Unavailable [phone] Luisito Mckeon MD Unavailable Unavailable Luisito Mckeon MD Primary Care Provider Unavail able Adina Mac RN Unavailable Luciana Brennan RN Unavailable OSVALDO BRENNAN@[email or web address] Alonso Pickett MD Unavailable [phone] Cally Tolliver Unavailable Michelle Tolliver@[email or web address] Reason for Visit * Reason Comments Medication Refill Encounter Details Date Type Department Care Team (Late st Contact Info) Description 08/10/2023 Refill [facility], [facility] [place] [facility] [place] [address] [address] Gavi Black MD [address] [place] [address] [email or web address] Medication Refill Social History Tobacco Use Types Packs/Day Years [...] on filedocumented in this encounter Care Teams Eligibility And Occupancy Interviewer Relationship Specialty Start Date End Date Luisito Mckeon MD PCP - General Endocrinology 10/11/17 Diomedes Odonnell MD [address] [place] [address] 261 [place] [address] YAKELIN@[facility] Thoracic Surgery 07/11/17 Gavi Black MD [address] [place] [address] Matt@[email or web address] Hematology and Oncology 07/18/17 Luisito Mckeon MD Primary Care Physician Endocrinology 10/02/17 Adina Mac, RN [address] [place] [address] Osmin@[facility] Primary Infusion Nurse 11/08/17 Luciana Brennan, RN [address] [place] [address] XAVIER@[facility] Primary Infusion Nurse 11/08/17 Alonso Pickett MD [address] [place] [address] [address] [place] [address] Gynecologic Oncology 12/13/18 Cally Tolliver LICSW [address] [place] [address] [address] [place] [address] Alexia@[email or web address] Animal Anatomy Teacher Oncology 12/29/21 documented as of this encounter Additional Source Comments The information contained in this document represents components of the legal health record. It is not the complete legal health record.[facility]
--- OUTSIDE RECORDS SUMMARY | 2025-09-18 18:43 | XMS_ITS | Clinical Summary ---
Author Organization [facility] [address] [facility] Address [address] [place] [address] Phone Care Team Providers Care Medical Device Name Role Phone Christina Alcala MD Primary Care Provider [phone] Allergies Active Allergy Reactions Criticality Noted Date Comments Diphenhydramine Hcl 07/18/2017 Oxycodone-Acetaminophen Psychiatric 10/20/2005 Pseudoephedrine Anxiety,Other Low 02/06/2013 Insomnia- hyperactive Medications aspirin 81 mg chewable tablet Chew 1 tablet (81 mg total) 1 (one) time each day. Active cholecalciferol (VITAMIN D-3) 125 mcg (5,000 unit) capsule Take 1 capsule (5,000 Units total) by mouth 1 (one) time each day. 2 Active citalopram (CeleXA) 20 mg tablet Take 1 tablet (20 mg total) by mouth daily. 2 Active multivitamin (multivitamin-i daniel-minerals) tablet Take 1 tablet by mouth daily. Active osimertinib (TAGRISSO) 40 mg tablet Take 1 tablet (40 mg total) by mouth daily 3 Active calcium carbonate (TUMS) 250 mg (walker river 100 mg) ChewTab Take by mouth. Active levothyroxine (SYNTHROID, LEVOTHROID) 88 mcg tablet Take 1 tablet (88 mcg total) by mouth 1 (one) time each day before breakfast. 90 tablet 1 5 Active levothyroxine (SYNTHROID, LEVOTHROID) 88 mcg tablet Take 1 tablet (88 mcg total) by mouth 1 (one) time each day before breakfast. 02/0809/04/20 Discontinu ed(Reorder ) Active Problems Problem Noted Date Diagnosed Date Hyperlipidemia 03/17/2022 Overview (05/14/2025): ASCVD score 13.1% (March 2022) Cyst of spleen 02/28/2019 Overview (05/14/2025): Pulmonary insufficiency 01/09/2018 Malignant neoplasm of lung ([facility] V24, [facility] V28) 08/30/2017 Overview (01/14/2024): Right lung biopsy, 06/21/2017; poorly differentiated adenoca, chemo Right pneumonectomy, 01/08/2018 Left lung ground glass, enlarging, on chemo, presumed lung cancer Pneumothorax 08/18/2017 Hx of papillary thyroid carcinoma 07/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 (09/04/2025): Micropapillary s/p thyroid resction Hypothyroidism 07/18/2017 Vitamin D deficiency 05/05/2013 Gastritis 02/23/2010 Overview (05/14/2025): Minimal erosive gastritis identified at upper GI endoscopy 02/23/2010, probably caused by chronic aspirin use. Iron deficiency anemia secondary to blood loss ( chronic) 02/23/2010 Overview (05/14/2025): Upper GI endoscopy, duodenal biopsies, colonoscopy performed 02/23/2010. Duodenal biopsies normal. Diverticulosis of colon without hemorrhage 02/11 Overview (05/14/2025): Incidental finding at colonoscopy 02/11/2010. Hemorrhage of gastrointestinal tract 02/11/2010 Overview (05/14/2025): Negative colonoscopy 12/06/2004, no colon cancer screening needed for 10 years. Stroke ([facility] V24, [facility] V28) 01/03/2008 Overview (01/14/2024): Lacunar infarct, follow-up MRI recommended 12/2008 Anxiety 12/11/2007 Osteoporosis 10/20/2005 Overview (01/14/2024): 03/26 T score spine -1.6 hip -2.7 Last Assessment & Plan: Management per PCP Resolved Problems Problem Noted Date Diagnosed Date Resolved Date Acute blood loss as cause of postoperative anemia 01/09/2018 05/14/2025 Acute postoperative pain 01/09/201807/2025 Lung mass 01/08/2018 05/14/2025 Adenocarcinoma of right lung ([facility] V24, [facility] V28) 07/18/2017 05/14/2025 Encounters Date Type Department Care Team Description 09/04/2025 10:30 AM EDT Office Visit Adult [address] [phone] Christina Alcala MD Postablative hypothyroidism (Primary Dx); Hx of papillary thyroid carcinoma; Other hyperlipidemia; Malignant neoplasm of left lung, unspecified part of lung ([facility] V24, [facility] V28); Anxiety; Vitamin D deficiency; Cognitive impairment 09/01/2025 Nurse Triage Adult Medicine [address] [phone] Carolyn Ruano MA from Last 3 Months Immunizations Immunization Administration Dates Next Due Influenza Quadravalent, 0.5m l (Fluzone High-dose) 65yo and older 08/26/2022 Influenza trivalent, 0.5mL ( Fluad) 65yo and older 09/04/2025 Influenza trivalent, 0.5mL ( Fluzone High-dose) 65yo and older 08/19/2021,09/29/2020,12/05/2019,09/03,08/30/2017,07/22/2016 Influenza trivalent, with pr eservative (Fluzone; Afluria) 6mo and older 08/05/2015,08/08/2014,10/10/2012,07/19,07/20/2010,08/04/2009 Moderna (age 6mo & older) Bi valent, COVID-19, 0.5 mL or 0.25 mL dosage 09/02/2022 Moderna SARS-CoV-2 COVID-19, mRNA, LNP-S, preservative free 10/20/2021 Pneumococcal conjugate 13 va lent (Prevnar 13, PCV13) 2mo and older 01/26/2016 Pneumococcal polysaccharide 23 valent (Pneumovax 23) 2yo and older 09/16/2014,06/08/2009 Td Tetanus diptheria (Tdvax) 7yo and older 05/14/2007 Tdap Tetanus diptheria acell ular pertussis (Boostrix; Adacel) 7yo and older 09/15/2014 Surgical History Surgery Date Site/Laterality Comments HYSTERECTOMY : bilateral salpingo oophorectomy BREAST BIOPSY benign TONSILLECTOMY BREAST BIOPSY 1989 Right : rt. breast bx-benign COLONOSCOPY 02/23/2010 diverticulosis UPPER GASTROINTESTINAL ENDOSCOPY 02/23/2010 minimal gastritis; duodenal bx: wnl COLONOSCOPY 12/06/2004 : diverticulosis OTHER SURGICAL HISTORY 2018 Right pneumonectomy Medical History Medical History Date Comments Stroke ([facility] V24, [facility] V28) 01/03/2008 Lacunar infarct, follow-up MRI recommended 12/2008 Diverticulosis of colon (wit hout mention of hemorrhage) 02/11/2010 Hemorrhage of gastrointestin al tract, unspecified 02/11/2010 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) 02/23/2010 Gastritis 02/23/2010 Vitamin D deficiency 05/05/2013 Pneumothorax 08/18/2017 Osteoporosis 10/20/2005 Malignant neoplasm of lung ( [facility] V24, [facility] V28) 08/30/2017 Right lung biopsy, 06/21/2017 ; poorly differentiated adenoca, chemo Right pneumonectomy, 01/08/2018 Left lung ground glass, enlarging, on chemo, presumed lung cancer Carcinoma of thyroid gland ( [facility] V24, [facility] V28) 07/18/2017 Micropapillary s/p thyroid r esction Family History Medical History Relation Name Comments Heart attack Brother coronary stent at age 59 Other: ? stroke Father Diabetes Mother , MD Relation Name Status Comments Brother Father Mother Social History Tobacco Use Types Packs/Day Years Used Date Smoking Tobacco: Never Smokeless Tobacco: Never Tobacco Cessation:Counseling Given: Not Answered Alcohol Use Standard Drinks/Week Comments No 0 (1 standard drink = 0.6 oz pur e alcohol) Comments Unknown Sex and Gender Information Value Date Recorded Sex Assigned at Not on file Legal Sex Female 5:39 PM EST Gender Identity Not on file Sexual Orientation Not on file Obstetrics History Last Filed Vital Signs Vital Sign Reading Time Taken Comments Blood Pressure 110/64 09/04/2025 10:31 AM EDT Pulse 57 09/04/2025 10:31 AM EDT Temperature 35.9 C (96.6 F) 09/04/2025 10:31 AM EDT Respiratory Rate 14 09/04/2025 10:3 1 AM EDT Oxygen Saturation 94% 09/04/2025 10: 31 AM EDT Inhaled Oxygen Concentration - - Weight 50.7 kg (111 lb 12.8 oz) 025 10:31 AM EDT Height 157.5 cm (5' 2 ) 09/04/2025 10:3 1 AM EDT Body Mass Index 20.45 09/04/2025 10:31 AM EDT Plan of Treatment Health Maintenance Due Date Last Done Comments Zoster Vaccines (1 of 2) 1964 RSV Immunization Adult Patients (1 - 1-dose 75+ series) 2019 Social Influencers of Health Screening 10/15/2022 Medicare Annual Wellness Visit 02/10/2023 02/10/2022 Falls Risk Assessment 05/23/2024 05/23/2023 DTaP,Tdap,and Td Vaccines (3 - Td or Tdap) 09/15/2024 09/15/2014, 05/14/2007 Depression Screening 11/06/2024 COVID-19 Vaccine ( season) 2025 12/16/2023, 09/02/2022, 10/20/2021, Additional history exists Cholesterol Screening (Lipid Panel) 12/13/2028 12/13/2023 Osteoporosis Screening (Bone Density Screening) 03/30/2031 03/30/2021 Pneumococcal Vaccine: 50+ Years Completed 01/26/2016, 09/16/2014, 06/08/2009 Influenza Vaccine Completed 09/04/2025, , 08/19/2021, Additional history exists HIB Vaccines Aged Out No longer eligi ble based on patient's age to complete this topic HPV Vaccines Aged Out No longer eligi ble based on patient's age to complete this topic Hepatitis A Vaccines Aged Out No long er eligible based on patient's age to complete this topic Hepatitis B Vaccines Aged Out No long er eligible based on patient's age to complete this topic IPV Vaccines Aged Out No longer eligi ble based on patient's age to complete this topic MMR Vaccines Aged Out No longer eligi ble based on patient's age to complete this topic Meningococcal ACWY Vaccine Aged Out N o longer eligible based on patient's age to complete this topic Meningococcal B Vaccine Aged Out No l onger eligible based on patient's age to complete this topic RSV Immunization Patients Under 20 months Aged Out No longer eligible based on patient's age to complete this topic Varicella Vaccines Aged Out No longer eligible based on patient's age to complete this topic Procedures Procedure Name Priority Date/Time Associated Diagnosis Comments DXA BONE DENSITY STUDY 1+ SITS AXIAL SKEL Routine 03/30/2021 4:02 PM EDT Disorder of bone, unspecified Disorder of cartilage, unspecified from Last 3 Months or Most Recently Relevant to Health Maintenance Results * DXA BONE DENSITY STUDY 1+ SITS AXIAL SKEL (03/30/2021 4:02 PM EDT) Anatomical Region Laterality Modality Bone Densitometr y 02/17/2021 4:10 PM EDT Narrative 03/30/2021 4:52 PM EDT BONE DENSITY Lumbar Spine T-score is -1.6 (SD relative to 20-29 y/o adult) Z-score is +0.9 (SD relative to age matched peers) This is consistent with osteopenia by criteria defined by the WHO. Left Hip T-score is -2.7 Z-score is -0.5 This is consistent with osteoporosis by criteria defined by the WHO. Comparison exam(s): significant decrease in bone density of lumbar spine when compared to most recent bone density examination Confidence level is +/-95%. Impression: Based on the World Health Organization criteria, Lashawn Pichardo should be classified as having osteoporosis. The [facility] Department of Internal Medicine recommends using National Osteoporosis Foundation (NOF) guidelines in treatment decisions related to osteoporosis. NOF guidelines suggest considering treatment for postmenopausal women and men aged 50 or older presenting with the following: History of hip or vertebral fracture. T-score less than or equal to -2.5 (DXA) at the femoral neck, total hip, or spine, after appropriate evaluation to exclude secondary causes. Low bone mass (T-score between -1.0 and -2.5 at the femoral neck or spine) AND a 10-year probability of a hip fracture greater than or equal to 3% OR a 10-year probability of a major osteoporosis-related fracture greater than or equal to 20% based on the [place]-adapted WHO algorithm Please note that all treatment decisions require clinical judgment and consideration of individual patient factors, including patient preferences, co-morbidities, previous drug use, risk factors not captured in the FRAX model (e.g., frailty, falls, vitamin D deficiency, increased bone turnover, interval significant decline in bone density) and possible under- or over-estimation of fracture risk by FRAX. Procedure Note Maggie Lainez MD - 10/25/2022 BONE DENSITY Lumbar Spine T-score is -1.6 (SD relative to 20-29 y/o adult) Z-score is +0.9 (SD relative to age matched peers) This is consistent with osteopenia by criteria defined by the WHO. Left Hip T-score is -2.7 Z-score is -0.5 This is consistent with osteoporosis by criteria defined by the WHO. Comparison exam(s): significant decrease in bone density of lumbar spinewhen compared to most recent bone density examination Confidence level is +/-95%. Impression: Based on the World Health Organization criteria, Lashawn Pichardo shouldbe classified as having osteoporosis. The [facility] Department of Internal Medicine recommendsusing National Osteoporosis Foundation (NOF) guidelines in treatmentdecisions related to osteoporosis. NOF guidelines suggest consideringtreatment for postmenopausal women and men aged 50 or older presentingwith the following: History of hip or vertebral fracture. T-score less than or equal to -2.5 (DXA) at the femoral neck, total hip,or spine, after appropriate evaluation to exclude secondary causes. Low bone mass (T-score between -1.0 and -2.5 at the femoral neck or spine)AND a 10-year probability of a hip fracture greater than or equal to 3% ORa 10-year probability of a major osteoporosis-related fracture greaterthan or equal to 20% based on the [place]-adapted WHO algorithm Please note that all treatment decisions require clinical judgment andconsideration of individual patient factors, including patientpreferences, co-morbidities, previous drug use, risk factors not capturedin the FRAX model (e.g., frailty, falls, vitamin D deficiency, increasedbone turnover, interval significant decline in bone density) and possibleunder- or over-estimation of fracture risk by FRAX. Christina Alcala MD IMG DXA PROCEDURES Final Result from Last 3 Months or Most Recently Relevant to Health Maintenance Insurance MEDICARE [facility] Care Teams Medical Device Relationship Specialty Start Date End Date Christina Alcala MD [address] [place] [address] PCP - General Internal Medicine 11/07/20
--- OUTSIDE RECORDS SUMMARY | 2025-09-18 18:43 | XMS_ITS | Encounter Summary ---
Author Organization [facility] Address [address] [place] [address] Phone Care Team Providers Care Education Associate Name Role Phone Diomedes Odonnell MD Unavailable [phone] Gavi Black MD Unavailable [phone] Luisito Mckeon MD Unavailable Unavailable Luisito Mckeon MD Primary Care Provider Unavail able Adina Mac RN Unavailable [phone] Luciana Brennan RN Unavailable OSVALDO [email or web address] Alonso Pickett MD Unavailable [phone] Cally Tolliver Unavailable Michelle [email or web address] Encounter Details Date Type Department Care Team (Late st Contact Info) Description 07/29/2022 [facility] [place] [place] [address] [address] Social History Tobacco Use Types [...] Assessment Author No 08/19/2017 7:47 AM Pricilla Densno PA-C * Patient has serious difficulty walking [...] on filedocumented in this encounter Care Teams Education Associate Relationship Specialty Start Date End Date Luisito Mckeon MD PCP - General Endocrinology 10/11/17 Diomedes Odonnell MD [address] [place] [address] [address] [place] [address] [email or web address] Thoracic Surgery 07/11/17 Gavi Black MD [address] [place] [phone] [email or web address] Hematology and Oncology 07/18/17 Luisito Mckeon MD Primary Care Physician Endocrinology 10/02/17 Adina Mac, RN [address] [place] [address] [email or web address] Primary Infusion Nurse 11/08/17 Luciana Brennan RN [address] [place] [address] [email or web address] Primary Infusion Nurse 11/08/17 Alonso Pickett MD [address] [place] [address] Dr [address] [place] [address] [phone] Gynecologic Oncology 12/13/18 Cally Tolliver LICSW [address] [place] [address] Dr Fiore [address] [place] [phone] Alexia@[email or web address] Testing Specialist Oncology 12/29/21 documented as of this encounter Additional Source Comments The information contained in this document represents components of the legal health record. It is not the complete legal health record.[facility]
--- OUTSIDE RECORDS SUMMARY | 2025-09-18 18:43 | XMS_ITS | Encounter Summary ---
Author Organization [facility] Address [address] [place] [address] Phone Care Team Providers Care Campaign Manager Name Role Phone Diomedes Odonnell MD Unavailable Gavi Black MD Unavailable [phone] Luisito Mckeon MD Unavailable Unavailable Luisito Mckeon MD Primary Care Provider Unavail able Adina Mac RN Unavailable [phone] Luciana Brennan RN Unavailable OSVALDO [email or web address] Alonso Pickett MD Unavailable [phone] Cally Tolliver Unavailable Michelle [email or web address] Encounter Details Date Type Department Care Team (Late st Contact Info) Description 12/27/2024 Procedure Pass [facility] [address] [place] [address] Social History Tobacco Use Types Packs/Day [...] on filedocumented in this encounter Care Teams Campaign Manager Relationship Specialty Start Date End Date Luisito Mckeon MD PCP - General Endocrinology 10/11/17 Diomedes Odonnell MD [address] [place], [place] [id number] YAKELIN@[email or web address] Thoracic Surgery 07/11/17 Gavi Black MD [address] [place] [address] [email or web address] Hematology and Oncology 07/18/17 Luisito Mckeon MD Primary Care Physician Endocrinology 10/02/17 Adina Mac, RN [address] [place] [phone] [email or web address] Primary Infusion Nurse 11/08/17 Luciana Brennan RN [address] [place] [phone] [email or web address] Primary Infusion Nurse 11/08/17 Alonso Pickett MD [address] [place] [address] Dr Fi[address] [place] [address] Gynecologic Oncology 12/13/18 Cally Tolliver LICSW [address] [place] [address] Dr Fi[address] [place] [address] [email or web address] Diamond Setter Apprentice Oncology 12/29/21 documented as of this encounter Additional Source Comments The information contained in this document represents components of the legal health record. It is not the complete legal health record.[facility]
--- OUTSIDE RECORDS SUMMARY | 2025-09-18 18:43 | XMS_ITS | Encounter Summary ---
Author Organization [facility] Address [address] [place] [address] Phone Care Team Providers Care Indigo Mixer Name Role Phone Diomedes Odonnell MD Unavailable Gavi Black MD Unavailable [phone] Luisito Mckeon MD Unavailable Unavailable Luisito Mckeon MD Primary Care Provider Unavail able Adina Mac RN Unavailable [phone] Luciana Brennan RN Unavailable OSVALDO [email or web address] Alonso Pickett MD Unavailable [phone] Cally Tolliver Unavailable Michelle [email or web address] Encounter Details Date Type Department Care Team (Late st Contact Info) Description 04/21/2020 Procedure Pass [facility], [facility] [place], [place] [address] [place] [address] Social History Tobacco Use Types Packs/Day Years [...] on filedocumented in this encounter Care Teams Indigo Mixer Relationship Specialty Start Date End Date Luisito Mckeon MD PCP - General Endocrinology 10/11/17 Diomedes Odonnell MD [address] [place] [address] [email or web address] Thoracic Surgery 07/11/17 Gavi Black MD [address] [place] [phone] [email or web address] Hematology and Oncology 07/18/17 Luisito Mckeon MD Primary Care Physician Endocrinology 10/02/17 Adina Mac, RN [address] [place] [address] [email or web address] Primary Infusion Nurse 11/08/17 Luciana Brennan RN [address] [place] [phone] [email or web address] Primary Infusion Nurse 11/08/17 Alonso Pickett MD [address] [place] [address] Dr [address] [place] [address] Gynecologic Oncology 12/13/18 Cally Tolliver LICSW [address] [place] [address] Dr Fi[address] [place] [phone] Alexia@[email or web address] Ice Bag Assembler Oncology 12/29/21 documented as of this encounter Additional Source Comments The information contained in this document represents components of the legal health record. It is not the complete legal health record.[facility]
--- OUTSIDE RECORDS SUMMARY | 2025-09-18 18:43 | XMS_ITS | Encounter Summary ---
Author Organization [facility] Address [address] [place] [address] Phone Care Team Providers Care Expedition Supervisor Name Role Phone Diomedes Odonnell MD Unavailable [phone] Gavi Black MD Unavailable [phone] Luisito Mckeon MD Unavailable Unavailable Luisito Mckeon MD Primary Care Provider Unavail able Adina Mac RN Unavailable [phone] Luciana Brennan RN Unavailable OSVALDO [email or web address] Alonso Pickett MD Unavailable [phone] Cally Tolliver Unavailable Michelle [email or web address] Encounter Details Date Type Department Care Team (Late st Contact Info) Description 06/09/2021 [facility] [place] [place] [address] [address] Social History Tobacco Use Types [...] on filedocumented in this encounter Care Teams Expedition Supervisor Relationship Specialty Start Date End Date Luisito Mckeon MD PCP - General Endocrinology 10/11/17 Diomedes Odonnell MD [address] [place] [address] [address] [place] [address] [email or web address] Thoracic Surgery 07/11/17 Gavi Black MD [address] [place] [address] [email or web address] Hematology and Oncology 07/18/17 Luisito Mckeon MD Primary Care Physician Endocrinology 10/02/17 Adina Mac, RN [address] [place] [address] [email or web address] Primary Infusion Nurse 11/08/17 Luciana Brennan RN [address] [place] [address] [email or web address] Primary Infusion Nurse 11/08/17 Alonso Pickett MD [address] [place] [address] Dr [address] [place] [address] [phone] Gynecologic Oncology 12/13/18 Cally Tolliver LICSW [address] [place] [address] Dr Fiore [address] [place] [phone] Alexia@[email or web address] Hand Mixer Oncology 12/29/21 documented as of this encounter Additional Source Comments The information contained in this document represents components of the legal health record. It is not the complete legal health record.[facility]
--- OUTSIDE RECORDS SUMMARY | 2025-09-18 18:43 | XMS_ITS | Encounter Summary ---
Author Organization [facility] Address [address] [place] [address] Phone Care Team Providers Care Structural Steel Worker Apprentice Name Role Phone Diomedes Odonnell MD Unavailable Gavi Black MD Unavailable [phone] Luisito Mckeon MD Unavailable Unavailable Luisito Mckeon MD Primary Care Provider Unavail able Adina Mac RN Unavailable [phone] Luciana Brennan RN Unavailable OSVALDO BRENNAN@[facility] Alonos Pickett MD Unavailable [phone] Cally Tolliver Unavailable Michelle Tolliver@[facility] Encounter Details Date Type Department Care Team (Late st Contact Info) Description 05/21/2020 Procedure Pass [facility], [facility] [place] [address] [facility], [place] [address] [place] [address] Social History Tobacco Use Types Packs/Day [...] on filedocumented in this encounter Care Teams Structural Steel Worker Apprentice Relationship Specialty Start Date End Date Luisito Mckeno MD PCP - General Endocrinology 10/11/17 Diomedes Odonnell MD [address] [place] [address] YAKELIN@[facility] Thoracic Surgery 07/11/17 Gavi Black MD [address] [place] [address] Matt@[facility] Hematology and Oncology 07/18/17 Luisito Mckeon MD Primary Care Physician Endocrinology 10/02/17 Adina Mac, RN [address] [place] [address] Osmin@[email or web address] Primary Infusion Nurse 11/08/17 Luciana Brennan RN [address] [place] [address] XAVIER@[facility] Primary Infusion Nurse 11/08/17 Alonso Pickett MD [address] [place] [address] Dr Fi[address] [place] [address] Gynecologic Oncology 12/13/18 Cally Tolliver LICSW [address] [place] [address] Dr Fi[address] [place] [address] Alexia@[email or web address] Site Technician Oncology 12/29/21 documented as of this encounter Additional Source Comments The information contained in this document represents components of the legal health record. It is not the complete legal health record.[facility]
--- OUTSIDE RECORDS SUMMARY | 2025-09-18 18:43 | XMS_ITS | Encounter Summary ---
Author Organization [facility] Address [address] [facility] [address] [facility] [address] [place] [address] Phone Care Team Providers Care Valance Cutter Name Role Phone Diomedes Odonnell MD Unavailable [phone] Gavi Black MD Unavailable [phone] Luisito Mckeon MD Unavailable Unavailable Luisito Mckeon MD Primary Care Provider Unavail able Adina Mac RN Unavailable [phone] Luciana Brennan RN Unavailable OSVALDO BRENNAN@[facility].[place] Alonso Pickett MD Unavailable [phone] Cally Tolliver Unavailable Michelle Tolliver@[facility] Encounter Details Date Type Department Care Team (Late st Contact Info) Description 05/05/2023 Procedure Pass [facility] [place] [address] [address] Social History Tobacco Use Types Packs/Day Years [...] on filedocumented in this encounter Care Teams Valance Cutter Relationship Specialty Start Date End Date Luisito Mckeon MD PCP - General Endocrinology 10/11/17 Diomedes Odonnell MD [address] [place] [address] YAKELIN@[facility] Thoracic Surgery 07/11/17 Gavi Black MD [address] [place] [address] Matt@[facility] Hematology and Oncology 07/18/17 Luisito Mckeon MD Primary Care Physician Endocrinology 10/02/17 Adina Mac, RN [address] [place] [address] Osmin@[email or web address] Primary Infusion Nurse 11/08/17 Luciana Brennan RN [address] [place] [address] XAVIER@[facility] Primary Infusion Nurse 11/08/17 Alonso Pickett MD [address] [place] [address] Dr Fi[address] [place] [address] Gynecologic Oncology 12/13/18 Cally Tolliver LICSW [address] [place] [address] Dr Fiore [address] [place] [address] Alexia@[facility] Manager Publishing Oncology 12/29/21 documented as of this encounter Additional Source Comments The information contained in this document represents components of the legal health record. It is not the complete legal health record.[facility]
--- OUTSIDE RECORDS SUMMARY | 2025-09-18 18:43 | XMS_ITS | Encounter Summary ---
Author Organization [facility] Address [address] [facility] [address] [place] [address] Phone Care Team Providers Care Director Of Plant Operations Name Role Phone Diomedes Odonnell MD Unavailable [phone] Gavi Black MD Unavailable [phone] Kenn Hennessy MD Unavailable [phone] Luisito Mckeon MD Unavailable Unavailable Luisito Mckeon MD Primary Care Provider Unavail able Adina Mac RN Unavailable [phone] Luciana Brennan RN Unavailable OSVALDO BRENNAN@[facility] Alonso Pickett MD Unavailable [phone] Cally Tolliver Unavailable Michelle Tolliver@[facility] Encounter Details Date Type Department Care Team (Late st Contact Info) Description 01/08/2018 Procedure Pass [facility] Periop [address] [place] [address] Social History Tobacco Use Types Packs/Day Years [...] on filedocumented in this encounter Care Teams Director Of Plant Operations Relationship Specialty Start Date End Date Luisito Mckeon MD PCP - General Endocrinology 10/11/17 Diomedes Odonnell MD [address] [place] [address] YAKELIN@[facility] Thoracic Surgery 07/11/17 Gavi Black MD [address] [place] [address] Matt@[email or web address] Hematology and Oncology 07/18/17 Kenn Hennessy MD [address] [place] [address] Internal Medicine 10/02/17 01/24/18 Luisito Mckeon MD Primary Care Physician Endocrinology 10/02/17 Adina Mac, RHONA [address] [place] [address] [email or web address] Primary Infusion Nurse 11/08/17 Luicana Brennan RN [address] [place] [address] XAVIER@[facility] Primary Infusion Nurse 11/08/17 Alonso Pickett MD [address] [place] [address] Dr [address] [place] [address] Gynecologic Oncology 12/13/18 Cally Tolliver LICSW [address] [place] [address] Dr Fi[address] [place] [address] Alexia@[facility] .[facility] Car Lubricator Oncology 12/29/21 documented as of this encounter Additional Source Comments The information contained in this document represents components of the legal health record. It is not the complete legal health record.[facility]
--- OUTSIDE RECORDS SUMMARY | 2025-09-18 18:43 | XMS_ITS | Encounter Summary ---
Author Organization [facility] Address [address] [place] [address] Phone Care Team Providers Care Beef Boner Name Role Phone Diomedes Odonnell MD Unavailable [phone] Gavi Black MD Unavailable [phone] Luisito Mckeon MD Unavailable Unavailable Luisito Mckeon MD Primary Care Provider Unavail able Adina Mac RN Unavailable [phone] Luciana Brennan RN Unavailable OSVALDO BRENNAN@[facility].[place] Alonso Pickett MD Unavailable [phone] Cally Tolilver Unavailable Michelle Tolliver@[facility] Encounter Details Date Type Department Care Team (Late st Contact Info) Description 06/09/2021 Ancillary Orders Outside Imaging Vito Infante MD [address] [place] [address] [phone] Meka@[facility] Social History Tobacco Use Types Packs/Day Years [...] 08/19/2017 7:47 AM BLAST Pricilla Simons PA-C documented as of this encounter Mental Status * Patient has serious difficulty concentrating, remembering, or making decisions due to physical, mental, or emotional condition Answer Entry Date Author No 08/19/2017 7:47 AM Pricilla Denson PA-C documented in this encounter Plan of Treatment Not on file documented as of this encounter Visit Diagnoses Not on filedocumented in this encounter Care Teams Beef Boner Relationship Specialty Start Date End Date Luisito Mckeon MD PCP - General Endocrinology 10/11/17 Diomedes Odonnell MD [address] [place] [address] YAKELIN@[facility] Thoracic Surgery 07/11/17 Gavi Black MD [address] [place] [address] Matt@[facility] Hematology and Oncology 07/18/17 Luisito Mckeon MD Primary Care Physician Endocrinology 10/02/17 Adina Mac, RN [address] [place] [address] Osmin@[facility] Primary Infusion Nurse 11/08/17 Luciana Brennan, RN [address] [place] [address] XAVIER@[facility] Primary Infusion Nurse 11/08/17 Alonso Pickett MD [address] [place] [address] [address] [place] [address] Gynecologic Oncology 12/13/18 Cally Tolliver ALLOCATION ANALYST [address] [place] [address] Dr [address] [place] [address] Alexia@[facility] Tactical/Mobile Watch Officer Oncology 12/29/21 documented as of this encounter Additional Source Comments The information contained in this document represents components of the legal health record. It is not the complete legal health record.[facility]
--- OUTSIDE RECORDS SUMMARY | 2025-09-18 18:43 | XMS_ITS | Encounter Summary ---
Author Organization [facility] Address [address] [place] [address] Phone Care Team Providers Care Wire Twisting Machine Operator Name Role Phone Diomedes Odonnell MD Unavailable Gavi Black MD Unavailable [phone] Luisito Mckeon MD Unavailable Unavailable Luisito Mckeon MD Primary Care Provider Unavail able Adina Mac RN Unavailable [phone] Luciana Brennan RN Unavailable OSVALDO BRENNAN@[facility].[place] Alonso Pickett MD Unavailable [phone] Cally Tolliver Unavailable Michelle Tolliver@[facility] Encounter Details Date Type Department Care Team (Late st Contact Info) Description 04/28/2025 Procedure Pass [facility] [place], [place] [address] [address] Social History Tobacco Use Types Packs/Day Years [...] with a working camera? Not on file Intimate Partner Violence Answer Date R ecorded Are you denied basic needs s uch as food, clothing, or medical care? No 03/18/2025 In the past 12 months have y ou been in a relationship with a person who hurts, threatens, or tries to control you? No 03/18/2025 Are you denied basic needs s uch as food, clothing, or medical care? No 03/18/2025 In the past 12 months have y ou been in a relationship with a person who hurts, threatens, or tries to control you? No 03/18/2025 Comments No Sex and Gender Information Value [...] Entry Date Author No 08/19/2017 7:47 AM BLAST Pricilla Simons PA-C documented in this encounter Plan of Treatment Not on file documented as of this encounter Visit Diagnoses Not on filedocumented in this encounter Care Teams Wire Twisting Machine Operator Relationship Specialty Start Date End Date Luisito Mckeon MD PCP - General Endocrinology 10/11/17 Diomedes Odonnell MD [address] [place] [address] YAKELIN@[facility] Thoracic Surgery 07/11/17 Gavi Black MD [address] [place] [address] Matt@[email or web address] Hematology and Oncology 07/18/17 Luisito Mckeon MD Primary Care Physician Endocrinology 10/02/17 Adina Mac, RN [address] [place] [address] Osmin@[facility] Primary Infusion Nurse 11/08/17 Luciana Brennan, RN [address] [place] [address] XAVIER@[facility] Primary Infusion Nurse 11/08/17 Alonso Pickett MD [address] [place] [address] Dr Fiore [address] [place] [address] Gynecologic Oncology 12/13/18 Cally Tolliver LICSW [address] [place] [address] Dr Fi[address] [place] [address] Alexia@[facility] Tar [place] Oncology 12/29/21 documented as of this encounter Additional Source Comments The information contained in this document represents components of the legal health record. It is not the complete legal health record.[facility]
--- OUTSIDE RECORDS SUMMARY | 2025-09-18 18:43 | XMS_ITS | Encounter Summary ---
Author Organization [facility] Address [address] [facility] [address] [place] [address] Phone Care Team Providers Care Resort Keeper Name Role Phone Diomedes Odonnell MD Unavailable [phone] Gavi Black MD Unavailable [phone] Luisito Mckeon MD Unavailable Unavailable Luisito Mckeon MD Primary Care Provider Unavail able Adina Mac RN Unavailable [phone] Luciana Brennan RN Unavailable OSVALDO BRENNAN@[email or web address] Alonso Pickett MD Unavailable [phone] Cally Tolliver Unavailable Michelle Tolliver@[email or web address] Encounter Details Date Type Department Care Team (Late st Contact Info) Description 04/21/2020 Procedure Pass [facility] Imaging Department, [facility] [place] [address] [facility], Floor [address] [place] [address] Social History Tobacco Use Types Packs/Day [...] on filedocumented in this encounter Care Teams Resort Keeper Relationship Specialty Start Date End Date Luisito Mckeon MD PCP - General Endocrinology 10/11/17 Dioemdes Odonnell MD [address] [place] [address] YAKELIN@[facility] Thoracic Surgery 07/11/17 Gavi Black MD [address] [place] [address] Matt@[facility] Hematology and Oncology 07/18/17 Luisito Mckeon MD Primary Care Physician Endocrinology 10/02/17 Adina Mac, RN [address] [place] [address] [email or web address] Primary Infusion Nurse 11/08/17 Luciana Brennan RN [address] [place] [address] XAVIER@[facility] Primary Infusion Nurse 11/08/17 Alonso Pickett MD [address] [place] [address] Dr Fi[address] [place] [address] Gynecologic Oncology 12/13/18 Cally Tolliver LICSW [address] [place] [address] Dr Fiore [address] [place] [address] Alexia@[facility] Transcription Specialist Oncology 12/29/21 documented as of this encounter Additional Source Comments The information contained in this document represents components of the legal health record. It is not the complete legal health record.[facility]
--- OUTSIDE RECORDS SUMMARY | 2025-09-18 18:43 | XMS_ITS | Encounter Summary ---
Author Organization [facility] Address [address] [facility] [address] [place] [address] Phone Care Team Providers Care General Sales Manager Name Role Phone Diomedes Odonnell MD Unavailable [phone] Gavi Black MD Unavailable [phone] Luisito Mckeon MD Unavailable Unavailable Luisito Mckeon MD Primary Care Provider Unavail able Adina Mac RN Unavailable [phone] Luciana Brennan RN Unavailable OSVALDO BRENNAN@[facility].[place] Alonso Pickett MD Unavailable [phone] Cally Tolliver Unavailable Michelle Tolliver@[facility] Encounter Details Date Type Department Care Team (Late st Contact Info) Description 03/07/2022 [facility] [place] [address] [address] Social History Tobacco Use Types [...] on filedocumented in this encounter Care Teams General Sales Manager Relationship Specialty Start Date End Date Luisito Mckeon MD PCP - General Endocrinology 10/11/17 Diomedes Odonnell MD [address] [place] [address] 261 [place] [address] YAKELIN@[facility] Thoracic Surgery 07/11/17 Gavi Black MD [address] [place] [address] [email or web address] Hematology and Oncology 07/18/17 Luisito Mckeon MD Primary Care Physician Endocrinology 10/02/17 Adina Mac, RN [address] [place] [address] Osmin@[facility] Primary Infusion Nurse 11/08/17 Luciana Brennan RN [address] [place] [address] XAVIER@[facility] Primary Infusion Nurse 11/08/17 Alonso Pickett MD [address] [place] [address] Dr [address] [place] [address] [phone] Gynecologic Oncology 12/13/18 Cally Tolliver LICSW [address] [place] [address] Dr Fiore [address] [place] [address] Alexia@[facility] Fleet Driver Oncology 12/29/21 documented as of this encounter Additional Source Comments The information contained in this document represents components of the legal health record. It is not the complete legal health record.[facility]
--- OUTSIDE RECORDS SUMMARY | 2025-09-18 18:43 | XMS_ITS | Encounter Summary ---
Author Organization [facility] Address [address] [place] [address] Phone Care Team Providers Care Healthcare Management Name Role Phone Luisito Mckeon MD Primary Care Provider Unavail able Joy Bermudez MD Unavailable Shagufta Plunkett MD Unavailable [phone] Bry Bartholomew MD Unavailable Unavailable Diomedes Odonnell MD Unavailable [phone] Gavi Black MD Unavailable [phone] Diomedes Odonnell MD Unavailable Unknown, Unknown Primary Care Provider Namrata Herrera RN Unavailable [phone] Kenn Hennessy MD Unavailable [phone] Luisito Mckeon MD Unavailable Unavailable Masha Garcia RN Unavailable edward@ [facility].[place] Luisito Mckeon MD Primary Care Provider Unavail able Adina Mac RN Unavailable [phone] Luciana Brennan RN Unavailable OSVALDO BRENNAN@[facility].[place].[facility] Alonso Pickett MD Unavailable [phone] Cally TolliverSW Unavailable Mikikarina Unruly@[facility] Encounter Details Date Type Department Care Team (Late st Contact Info) Description 07/13/2017 Procedure Pass [facility] [address] [place] [address] Social History Tobacco Use Types Packs/Day Years [...] on filedocumented in this encounter Care Teams Healthcare Management Relationship Specialty Start Date End Date Luisito Mckeon MD PCP - General Endocrinology 07/07/17 08/31/17 Unknown, Mesha, [address] [place] [address] PCP - General 09/01/17 10/10/17 Luisito Mckeon MD PCP - General Endocrinology 10/11/17 Joy Bermudez MD Thoracic Surgery 07/11/17 10/01/17 Shagufta Plunkett MD [address] [place] [address] 07/11/17 10/01/17 Bry Bartholomew MD [address] [place] [address] Internal Medicine 07/11/17 10/01/17 Diomedes Odonnell MD [address] [place] [address] YAKELIN@[email or web address] Thoracic Surgery 07/11/17 Gavi Black MD [address] [place] [address] Matt@[email or web address] Hematology and Oncology 07/18/17 Diomedes Odonnell MD [address] [place] [address] YAKELIN@[facility] Referring Physician Thoracic Surgery 07/19/17 10/01/17 Namrata Petty RN [address] [place] [address] ROBBY@[facility] Primary Infusion Nurse 09/15/17 09/18/17 Kenn Hennessy MD [address] [place] [address] Internal Medicine 10/02/17 01/24/18 Luisito Mckeon MD Primary Care Physician Endocrinology 10/02/17 Masha Garcia, RN [address] [place] [address] [email or web address] Primary Infusion Nurse 10/09/17 11/07/17 Adina Mac, RN [address] [place] [address] Osmin@[email or web address] Primary Infusion Nurse 11/08/17 Luciana Brennan, RN [address] [place] [address] XAVIER@[facility] Primary Infusion Nurse 11/08/17 Alonso Pickett MD [address] [place] [address] Dr Fi[address] [place] [address] [phone] Gynecologic Oncology 12/13/18 Cally Tolliver LICSW [address] [place] [address] Dr Fiore [address] [place] [address] Alexia@[facility] Tourist Information Officer Oncology 12/29/21 documented as of this encounter Additional Source Comments The information contained in this document represents components of the legal health record. It is not the complete legal health record.[facility]
--- OUTSIDE RECORDS SUMMARY | 2025-09-18 18:43 | XMS_ITS | Clinical Summary ---
Author Organization [facility] Address [address] [place] [address] Phone Care Team Providers Care Conference Director Name Role Phone Diomedes Odonnell MD Unavailable [phone] Gavi Black MD Unavailable [phone] Luisito Mckeon MD Unavailable Unavailable Luisito Mckeon MD Primary Care Provider Unavail able Adina Mac RN Unavailable [phone] Luciana Monreal RN Unavailable [email or web address] Alonso Pickett MD Unavailable [phone] Cally Tolliver Unavailable [email or web address] Allergies Active Allergy Reactions Criticality Noted Date Comments Diphenhydramine Hcl 07/18/2017 Oxycodone-Acetaminophen Mental Status Change Pramoxine-Menthol Other (See Comments) 02/07/20 13 Insomnia -hyperactive Pseudoephedrine Hcl Anxiety Low 07/13/2017 Medications levothyroxine (SYNTHROID, LEVOTHROID) 88 MCG tabletIndications :pt takes 1.5 tablets on Monday and Monday Take 88 mcg by mouth every morning. Active CALCIUM CARBONATE (CALCIUM 500 ORAL) Take by mouth. Activ e therapeutic multivitamin tablet Take 1 tablet by mouth daily. Active cholecalciferol (VITAMIN D3) 2,000 unit capsule Take by mouth daily. Active aspirin 81 MG EC tablet Take 81 mg by mouth daily. Active calcium carbonate-vitamin D3 1,500 mg (600 mg elemental)-200 units Tab Take 1 tablet by mouth daily. Active multivitamin per tablet Take 1 tablet by mouth daily. Active ciclopirox (PENLAC) 8 % solution Apply 1 drop topically nightly at bedtime. 4 Active nitrofurantoin (MACROBID) 100 MG capsule Take 100 mg by mouth 2 (two) times a day. 5 Active aspirin 81 mg chewable tablet Take 81 mg by mouth daily. Active calcium carbonate 500 mg (200 mg elemental) chewable tablet Take 1 tablet by mouth as needed. Active TAGRISSO 40 mg tablet TAKE ONE TABLET BY MOUTH EVERY DAY. 30 tablet 11 5 Active citalopram (CELEXA) 20 MG tablet TAKE 1 TABLET BY MOUTH EVERY DAY 90 tablet 3 5 Active Active Problems Patient Care Coordination No te Formatting of this note migh t be different from the original. 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 Acute postoperative pain 01/09/2018 Acute blood loss as cause of postoperative anemi a 01/09/2018 Pulmonary insufficiency 01/09/2018 Post-operative nausea and vomiting 01/09/2018 Lung mass 01/08/2018 Pneumothorax 08/18/2017 Adenocarcinoma of right lung 07/18/2017 Cancer Staging:Clinical stage from 02/20/2018:Stage Unknown(T4(3), NX, M0) - Signed by Gavi Black MD on 02/20/2018 Pathologic stage from 02/20/2018:Stage IIIA(T4, N1, cM0) - Signed by Gavi Black MD on 02/20/2018 Hypothyroidism 07/18/2017 Carcinoma of thyroid gland 07/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 (07/18/2017): Micropapillary s/p thyroid resction Encounters Date Type Department Care Team Description 09/18/2025 Social Work Social Work Department, [facility] [address] [place] [address] Precious Cowart LICSW 09/18/2025 Telephone [facility] for Thoracic Oncology, [address], [address]th [place] [address] Ximena Barlow RN Care Coordination (VNA ) 09/17/2025 Orders Only [facility], [facility] [address] [facility] [address] [facility] 4th [place] [address] Gavi Black MD 09/10/2025 Transcribe Orders [facility] Neurology [address] [place] [address] María Molina MA Cognitive impairment (Primary Dx) 09/09/2025 11:00 AM EST Office Visit [facility] At [address] [address] Estelle Chavira MD Non-small cell cancer of left lung (Primary Dx) 09/09/2025 Social Work Social Work Department, [address] [address] Precious Cowart LICSW 09/09/2025 Social Work Social Work Department, [address] [address] Precious Cowart LICSW 09/04/2025 Telephone [facility] Thor[facility], [address], 9th [place] [address] Ximena Barlow RN Medication Management 08/28/2025 9:41 AM EDT - 08/28/2025 11:59 PM EDT Hospital Encounter [facility], Pet/Ct - [address] [address] Bry Scott MD Discharge Disposition: Home or Self Care 08/27/2025 Orders Only [facility] At [facility] Onc [address] [place] [address] Bry Scott MD 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 I don't see one but they stated this was requested by Dr. Feng. She is already scheduled to go in tomorrow but they require the order from our office. Please advise./) 08/26/2025 Telephone [facility] At [address] [address] Estelle Chavira MD PreAut 08/12/2025 9:00 AM EDT Office Visit [facility] At [facility] Onc [address] [place] [address] Estelle Chavira MD Non-small cell cancer of left lung (Primary Dx) 08/12/2025 Documentation [facility] At [address] [address] Estelle Chavira MD 08/12/2025 Telephone [facility] At [address] [address] Estelle Chavira MD 07/28/2025 Telephone [facility] Center for Thoracic Oncology, [facility] [place] [address] [facility], 9th [place] [address] Luis Manuel Adkins, RHONA 07/22/2025 Refill [facility], [facility] [place] [facility] [place] [address] [facility] 4th [place] [address] Rosa Carroll, ROMELIA Medication Refill 07/04/2025 Orders Only Department of Radiation Oncology [address] [place] [address] Vianca Feng MD, PhD 06/30/2025 11:00 AM EDT Telemedicine [facility] for Thoracic [facility], [facility] [address] [facility], 9th [place] [address] Vianca Feng MD, PhD EGFR-related lung cancer (Primary Dx) 06/19/2025 9:30 AM EDT Office Visit [facility] Thoracic Oncology, [facility] [address] [address] Gavi Black MD Bilateral lung cancer (Primary Dx); EGFR-related lung cancer 06/19/2025 7:19 AM EDT - 06/19/2025 11:59 PM EDT Hospital Encounter [place] [place] [address] [address] Gavi Black MD Discharge Disposition: Home or Self Care 04/28/2025 Procedure Pass [place] [address] [address] from Last 3 Months Family History Medical History Relation Comments Heart attack Brother Stroke Father Diabetes Mother Heart attack Mother Heart disease Mother Celiac disease Neg Hx Colon cancer Neg Hx Crohn's disease Neg Hx Liver cancer Neg Hx Pancreatic cancer Neg Hx Pancreatitis Neg Hx Stomach cancer Neg Hx Ulcerative colitis Neg Hx Relation Status Comments Brother Father Mother Social History [...] on file Sexual Orientation Not on file Last Filed Vital Signs Vital Sign Reading Time Taken Comments Blood Pressure 149/94 08/12/2025 9:08 AM EDT Pulse 80 08/12/2025 9:08 AM EDT Temperature 36.4 C (97.5 F) 08/12/2025 9:08 AM EDT Respiratory Rate 22 08/12/2025 9:08 AM EDT Oxygen Saturation 100% 08/12/2025 9:08 AM EDT Inhaled Oxygen Concentration - - Weight 47.7 kg (105 lb 3.2 oz) 08/12/2025 9:08 A M EDT Height 156 cm (5' 1.42 ) 06/19/2025 9:22 AM EDT Body Mass Index 19.61 06/19/2025 9:22 AM EDT Plan of Treatment Health Maintenance Due Date Last Done Comments DEPRESSION SCREENING 1956 ZOSTER VACCINES (1 of 2) 1963 OSTEOPOROSIS SCREENING INITIAL (ONE-TIME) 2009 RSV VACCINE (1 - 1-dose 75+ series) 2019 Adult Td,Tdap Booster 09/15/2024 09/15/2014, 007 COVID-19 VACCINE ( season) 2025 12/16/2023, 09/02/2022, 10/20/2021, Additional history exists TSH LEVEL 12/20/2025 12/20/2024, 04/28/2023 PNEUMOCOCCAL VACCINES (50+ years) Completed 01/26/2016, 09/16/2014, 06/08/2009 INFLUENZA VACCINE Completed 09/04/2025, , 08/26/2022, Additional history exists HEPATITIS A VACCINES Aged Out No long er eligible based on patient's age to complete this topic HIB VACCINES Aged Out No longer eligi ble based on patient's age to complete this topic IPV VACCINES Aged Out No longer eligi ble based on patient's age to complete this topic MENINGOCOCCAL VACCINES (ACWY) Aged Out No longer eligible based on patient's age to complete this topic MENINGOCOCCAL VACCINES (B) Aged Out N o longer eligible based on patient's age to complete this topic Medical Devices Not on file Procedures Procedure Name Priority Date/Time Associated Diagnosis Comments NM PET CT SKULL BASE TO MID THIGHS Routine 08/28/2025 11:56 AM EDT Non-small cell cancer of left lung OUTSIDE IMAGING 08/28/2025 CT CHEST WITH CONTRAST Routine 06/19/2025 7:58 AM EDT EGFR-related lung cancer THYROID STIMULATING HORMONE (TSH) Routine 12/20/2024 8:44 AM EST EGFR-related lung cancer Memory loss Neoplastic malignant related fatigue from Last 3 Months or Most Recently Relevant to Health Maintenance Results * NM PET CT Skull Base to Mid Thighs (08/28/2025 11:56 AM EDT) Anatomical Region Laterality Modality Positron Emissio n Tomography (PET) Narrative 08/28/2025 10:04 AM EDT DAVIS PET IMAGING us Bry Sctot MD IMG NM PET Final Result * Outside Imaging Report Only (08/28/2025) us Scanning Interface Provider IMG XR CHEST Kelsea l Result * CT CHEST WITH CONTRAST (06/19/2025 7:58 AM EDT) Anatomical Region Laterality Modality Chest Computed Tomogra phy Other 06/19/2025 9:04 AM EDT Impressions 06/19/2025 9:15 AM EDT 1. Slowly increasing solid component (10 mm from 5 mm in December 2024 and not present in 2023) within the previously groundglass nodule in the left lower lobe, likely new primary lung adenocarcinoma with invasive component. 2. 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 Narrative 06/19/2025 9:[address] CHEST WITH CONTRAST Referring clinician's provided indication for this examination in Epic: * Non- small cell lung cancer, metastatic, assess treatment response; EGFR mutated lung cancer. ? increasing solid component of LLL? TECHNIQUE: Multidetector CT of the chest was performed with intravenous contrast using tailored dose modulation techniques. COMPARISON: CT CHEST WITH CONTRAST 2024- FINDINGS: Devices/Tubes/Lines: None. Lungs: Status post right pneumonectomy with similar complete shift of the heart into the right hemithorax. The left mainstem bronchus is mildly narrowed and stretched over the spine and likely compressed between left lower lobe pulmonary artery and descending thoracic aorta. There is persistent occlusion of a subsegmental bronchus in the superior segment of the left lower lobe with distal somewhat tubular, fluid-filled structure that is likely a bronchocele (fluid-filled ectatic bronchus) and was photopenic on prior PET/CT and 23 4. This measures approximately 2.5 x 1.2 cm 6:149. Left lower lobe 27 x 25 mm sub-solid nodule overall size has persistent solid component measuring 11 mm. Additional faint poorly circumscribed groundglass in the superior segment left lower lobe 6:141 unchanged. 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 Status post thyroidectomy. No central pulmonary embolism is seen. Lymph Nodes: Normal. No enlarged supraclavicular, axillary, mediastinal, or hilar lymph nodes. Upper Abdomen: Please see concurrent abdominal CT for abdominal findings. Chest Wall: Nodularity in the outer right breast on series 2 image 56 measures 1.2 cm, unchanged, possibly postsurgical Bones: Normal. No suspicious lytic or blastic lesions. Procedure Note Aracely Hare MD - 06/19/2025 CT CHEST WITH CONTRAST Referring clinician's provided indication for this examination in [facility]: *Non- small cell lung cancer, metastatic, assess treatment response; EGFRmutated lung cancer. ? increasing solid component of LLL? TECHNIQUE: Multidetector CT of the chest was performed with intravenouscontrast using tailored dose modulation techniques. COMPARISON: CT CHEST WITH CONTRAST 2024- FINDINGS: Devices/Tubes/Lines: None. Lungs: Status post right pneumonectomy with similar complete shift of theheart into the right hemithorax. The left mainstem bronchus is mildlynarrowed and stretched over the spine and likely compressed between leftlower lobe pulmonary artery and descending thoracic aorta. There ispersistent occlusion of a subsegmental bronchus in the superior segment ofthe left lower lobe with distal somewhat tubular, fluid- filled structurethat is likely a bronchocele (fluid-filled ectatic bronchus) and wasphotopenic on prior PET/CT and 23 4. This measures approximately 2.5 x 1.2cm 6:149. Left lower lobe 27 x 25 mm sub-solid nodule overall size haspersistent solid component measuring 11 mm. Additional faint poorlycircumscribed groundglass in the superior segment left lower lobe 6:141unchanged. Tree-in-bud nodules in the posterior left lower lobe are waxingand waning when compared with the prior study, decreased compared to priorand may be due to compression of the left lower lobe bronchi Pleura: Mild residual pleural thickening in the right pneumonectomyspace Mediastinum: Unchanged complete shift of the heart into the righthemithorax. Status post thyroidectomy. No central pulmonary embolism isseen. Lymph Nodes: Normal. No enlarged supraclavicular, axillary, mediastinal,or hilar lymph nodes. Upper Abdomen: Please see concurrent abdominal CT for abdominalfindings. Chest Wall: Nodularity in the outer right breast on series 2 image 56measures 1.2 cm, unchanged, possibly postsurgical Bones: Normal. No suspicious lytic or blastic lesions. IMPRESSION: 1. Slowly increasing solid component (10 mm from 5 mm in Decembernd not present in 2023) within the previously groundglass nodule in theleft lower lobe, likely new primary lung adenocarcinoma with invasivecomponent. 2. Unchanged complete shift of the heart into the right hemithoraxfollowing right pneumonectomy, with similar postobstructive bronchocele inthe left lower lobe and slight improvement in left lower lobebronchiolitis, all likely postobstructive and likely secondary to postpneumonectomy syndrome. us Gavi Black MD IMG CT CHEST Final Result * TSH (12/20/2024 8:44 AM EST) TSH 2.94 0.27 - 4.20 uIU/mL [facility] LIC# [id number] Blood 12/20/2024 8:44 AM EST 12/20/2024 8:50 AM EST us Gavi Black MD LAB BLOOD BKR ORDERABLES Final Result [facility] LIC# [id number] [address] [place] [address], [facility] from Last 3 Months or Most Recently Relevant to Health Maintenance Insurance [facility]IC[facility] PART [facility] & [facility] MEDICARE PART A & B [facility] [employer] MEDICARE SUPPLEMENT MEDICARE PART A & B [facility] [employer] MEDICARE SUPPLEMENT MEDICARE PART A & B MEDICARE SUPPLEMENT [address] [place] [address] MEDICARE PART A & B MEDICARE SUPPLEMENT MEDICARE PART A & B [employer] MEDICARE SUPPLEMENT MEDICARE PART A & B [employer] MEDICARE SUPPLEMENT MEDICARE PART A & B [facility] [employer] MEDICARE SUPPLEMENT Advance Directives For more information, please contact: [phone] (9AM - 5PM [facility], Monday-Monday) Documents on File Type Date Recorded 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 01/08/2018 5:37 AM * Full Code (Presumed) (Latest Code Status on File) Date Activated Date Inactivated Comments 01/08/2018 11:20 AM 01/12/2018 3:08 PM * Full Code (Presumed) Date Activated Date Inactivated Comments 08/18/2017 5:30 PM 08/19/2017 12:25 PM Healthcare Agents on File Name Relationship Healthcare Agent [facility] Communication Sim Terese Son .Primary Health Care Agent (Proxy form on file) [email or web address] Care Teams Conference Director Relationship Specialty Start Date End Date Luisito Mckeon MD PCP - General Endocrinology 10/11/17 Diomedes Odonnell MD [address] [place] [address] [address] [place] [address] [email or web address] Thoracic Surgery 07/11/17 Gavi Black MD [address] [place] [phone] [email or web address] Hematology and Oncology 07/18/17 Luisito Mckeon MD Primary Care Physician Endocrinology 10/02/17 Adina Mac, RN [address] [place] [id number] [email or web address] Primary Infusion Nurse 11/08/17 Luciana Monreal, RN [address] [place] [phone] [email or web address] Primary Infusion Nurse 11/08/17 Alonso Pickett MD [address] [place] [address] Dr Fiore [address] [place] [address] Gynecologic Oncology 12/13/18 Cally Tolliver LICSW [address] [place] [address] Dr Fiore [address] [place] [phone] [email or web address] Recreational Resort Manager Oncology 12/29/21 Additional Source Comments The information contained in this document represents components of the legal health record. It is not the complete legal health record.[facility]
--- OUTSIDE RECORDS SUMMARY | 2025-09-18 18:43 | XMS_ITS | Encounter Summary ---
Author Organization [facility] Address [address] [facility] [address] [place] [address] Phone Care Team Providers Care Silverware Cleaner Name Role Phone Diomedes Odonnell MD Unavailable [phone] Gavi Black MD Unavailable [phone] Luisito Mckeon MD Unavailable Unavailable Luisito Mckeon MD Primary Care Provider Unavail able Adina Mac RN Unavailable [phone] Luciana Brennan RN Unavailable [email or web address] [email or web address] Alonso Pickett MD Unavailable [phone] Cally Tolliver Unavailable [email or web address] Encounter Details Date Type Department Care Team (Late st Contact Info) Description 05/21/2020 Procedure Pass [facility] Imaging Department, [facility] [place] [place] [address] [facility], Floor [address] [place] [address] Social History Tobacco Use Types Packs/Day [...] on filedocumented in this encounter Care Teams Silverware Cleaner Relationship Specialty Start Date End Date Luisito Mckeon MD PCP - General Endocrinology 10/11/17 Diomedes Odonnell MD [address] [place] [id number] [email or web address] Thoracic Surgery 07/11/17 Gavi Black MD [address] [place] [phone] [email or web address] Hematology and Oncology 07/18/17 Luisito Mckeon MD Primary Care Physician Endocrinology 10/02/17 Adina Mac, RN [address] [place] [address] [email or web address] Primary Infusion Nurse 11/08/17 Luciana Brennan RN [address] [place] [address] [email or web address] Primary Infusion Nurse 11/08/17 Alonso Pickett MD [address] [place] [address] Dr Fiore [address] [place] [address] Gynecologic Oncology 12/13/18 Cally Tolliver LICSW [address] [place] [address] Dr Fiore [address] [place] [phone] [email or web address] Retail Assistant Store Manager Oncology 12/29/21 documented as of this encounter Additional Source Comments The information contained in this document represents components of the legal health record. It is not the complete legal health record.[facility]
--- OUTSIDE RECORDS SUMMARY | 2025-09-18 18:43 | XMS_ITS | Encounter Summary ---
Author Organization [facility] Address [address] [place] [address] Phone Care Team Providers Care Transmission Mechanic Name Role Phone Luisito Mckeon MD Primary Care Provider Unavail able Joy Bermudez MD Unavailable Shagufta Plunkett MD Unavailable [phone] Bry Bartholomew MD Unavailable Unavailable Diomedes Odonnell MD Unavailable Gavi Black MD Unavailable [phone] Diomedes Odonnell MD Unavailable Unknown, Unknown Primary Care Provider Namrata Herrera RN Unavailable [phone] Kenn Hennessy MD Unavailable [phone] Luisito Mckeon MD Unavailable Unavailable Masha Garcia RN Unavailable [email or web address] Luisito Mckeon MD Primary Care Provider Unavail able Adina Mac RN Unavailable [phone] Luciana Brennan RN Unavailable OSVALDO [email or web address] Alonso Pickett MD Unavailable [phone] Cally Tolliver Unavailable Michelle [email or web address] Encounter Details Date Type Department Care Team (Late st Contact Info) Description 07/19/[address] [facility] MR Imaging, Yousif [address] [place] [address] Social History Tobacco Use Types Packs/Day Years [...] on filedocumented in this encounter Care Teams Transmission Mechanic Relationship Specialty Start Date End Date Luisito Mckeon MD PCP - General Endocrinology 07/07/17 08/31/17 Unknown, Mesha, [address] [place] [address] PCP - General 09/01/17 10/10/17 Luisito Mckeon MD PCP - General Endocrinology 10/11/17 Joy Bermudez MD Thoracic Surgery 07/11/17 10/01/17 Shagufta Plunkett MD [address] [place] [phone] 07/11/17 10/01/17 Bry Bartholomew MD [address] [place] [id number] Internal Medicine 07/11/17 10/01/17 Diomedes Odonnell MD [address] [place] [phone] [email or web address] Thoracic Surgery 07/11/17 Gavi Black MD [address] [place] [phone] [email or web address] Hematology and Oncology 07/18/17 Diomedes Odonnell MD [address] [place] [address] [address] [place] [address] [email or web address] Referring Physician Thoracic Surgery 07/19/17 10/01/17 Namrata Petty RN [address] [place] [phone] [email or web address] Primary Infusion Nurse 09/15/17 09/18/17 Kenn Hennessy MD [address] [place] [address] Internal Medicine 10/02/17 01/24/18 Luisito Mckeon MD Primary Care Physician Endocrinology 10/02/17 Masha Garcia, RN [address] [place] [phone] [email or web address] Primary Infusion Nurse 10/09/17 11/07/17 Adina Mac, RN [address] [place] [address] [email or web address] Primary Infusion Nurse 11/08/17 Luciana Brennan, RN [address] [place] [address] [email or web address] Primary Infusion Nurse 11/08/17 Alonso Pickett MD [address] [place] [address] Dr Fiore [address] [place], [place] [id number] Gynecologic Oncology 12/13/18 Cally Tolliver LICSW [address] [place] [address] Dr Fiore [address] [place] [address] [email or web address] Internal Combustion Engine Assembler Oncology 12/29/21 documented as of this encounter Additional Source Comments The information contained in this document represents components of the legal health record. It is not the complete legal health record.[facility]
--- OUTSIDE RECORDS SUMMARY | 2025-09-18 18:44 | XMS_ITS | Encounter Summary ---
Author Organization [facility] Address [address] [place] [address] Phone Care Team Providers Care Marketing And Promotions Manager Name Role Phone Diomedes Odonnell MD Unavailable [phone] Gavi Black MD Unavailable [phone] Luisito Mckeon MD Unavailable Unavailable Luisito Mckeon MD Primary Care Provider Unavail able Adina Mac RN Unavailable [phone] Luciana Brennan RN Unavailable OSVALDO BRENNAN@[facility] Alonso Pickett MD Unavailable [phone] Cally Tolliver Unavailable Michelle Tolliver@[facility] Encounter Details Date Type Department Care Team (Late st Contact Info) Description 06/06/2022 [facility] [place] [address] [address] Social History Tobacco Use Types [...] on filedocumented in this encounter Care Teams Marketing And Promotions Manager Relationship Specialty Start Date End Date Luisito Mckeon MD PCP - General Endocrinology 10/11/17 Diomedes Odonnell MD [address] [place] [address] [address] [place] [address] YAKELIN@[facility] Thoracic Surgery 07/11/17 Gavi Black MD [address] [place] [address] [email or web address] Hematology and Oncology 07/18/17 Luisito Mckeon MD Primary Care Physician Endocrinology 10/02/17 Adina aMc, RN [address] [place] [address] Osmin@[facility] Primary Infusion Nurse 11/08/17 Luciana Brennan RN [address] [place] [address] XAVIER@[facility] Primary Infusion Nurse 11/08/17 Alonso Pickett MD [address] [place] [address] Dr Fi[address] [place] [address] [id number] Gynecologic Oncology 12/13/18 Cally Tolliver LICSW [address] [place] [address] Dr Fi[address] [place] [address] Alexia@[facility] Cellophane Bath Mixer Oncology 12/29/21 documented as of this encounter Additional Source Comments The information contained in this document represents components of the legal health record. It is not the complete legal health record.[facility]
--- OUTSIDE RECORDS SUMMARY | 2025-09-18 18:44 | XMS_ITS | Encounter Summary ---
Author Organization [facility] Address [address] [place] [address] Phone Care Team Providers Care Dumping Machine Operator Name Role Phone Diomedes Odonnell MD Unavailable [phone] Gavi Black MD Unavailable [phone] Luisito Mckeon MD Unavailable Unavailable Luisito Mckeon MD Primary Care Provider Unavail able Adina aMc RN Unavailable [phone] Luciana Brennan RN Unavailable OSVALDO BRENNAN@[email or web address].[place] Alonso Pickett MD Unavailable [phone] Cally Tolliver Unavailable Michelle Tolliver@[facility] Encounter Details Date Type Department Care Team (Late st Contact Info) Description 09/25/2023 Procedure Pass [facility] [place], [place] [address] [address] Social History Tobacco Use Types Packs/Day Years [...] on filedocumented in this encounter Care Teams Dumping Machine Operator Relationship Specialty Start Date End Date Luisito Mckeon MD PCP - General Endocrinology 10/11/17 Diomedes Odonnell MD [address] [place] [address] YAKELIN@[facility] Thoracic Surgery 07/11/17 Gavi Black MD [address] [place] [address] Matt@[facility] Hematology and Oncology 07/18/17 Luisito Mckeon MD Primary Care Physician Endocrinology 10/02/17 Adina Mac, RN [address] [place] [address] Osmin@[facility] Primary Infusion Nurse 11/08/17 Luciana Brennan RN [address] [place] [address] XAVIER@[facility] Primary Infusion Nurse 11/08/17 Alonso Pickett MD [address] [place] [address] Dr [address] [place] [address] Gynecologic Oncology 12/13/18 Cally Tolliver LICSW [address] [place] [address] Dr Fiore [address] [place] [address] Alexia@[email or web address] Rn Cardiovascular Oncology 12/29/21 documented as of this encounter Additional Source Comments The information contained in this document represents components of the legal health record. It is not the complete legal health record.[facility]
--- OUTSIDE RECORDS SUMMARY | 2025-09-18 18:44 | XMS_ITS | Encounter Summary ---
Author Organization [facility] Address [address] [place] [address] Phone Care Team Providers Care Office Sweeper Name Role Phone Diomedes Odonnell MD Unavailable [phone] Gavi Black MD Unavailable [phone] Luisito Mckeon MD Unavailable Unavailable Luisito Mckeon MD Primary Care Provider Unavail able Adina Mac RN Unavailable [phone] Luciana Brennan RN Unavailable OSVALDO BRENNAN@[facility] Alonso Pickett MD Unavailable [phone] Cally Tolliver Unavailable Michelle Tolliver@[facility] Reason for Referral * Home Health Care - New Request Specialty Diagnoses / Procedures Referred By Babatunde brewer Referred To Contact Home Health Services Gavi Black MD [address] [place] [address] Phone: tel: fax: mailto:[email or web address] Referral ID Status Reason Start Date Expiration Date V isits Requested Visits Authorized [id number] New Request 09/17/2025 09/17/2026 1 1 Encounter Details Date Type Department Care Team (Late st Contact Info) Description 09/17/2025 Orders Only [facility], [facility] [place] [facility] [place] [address] [facility] 4th [place] [address] Gavi Black MD [address] [place] [address] Matt@[email or web address] Social History Tobacco Use Types Packs/Day Years [...] on filedocumented in this encounter Care Teams Office Sweeper Relationship Specialty Start Date End Date Luisito Mckeon MD PCP - General Endocrinology 10/11/17 Diomedes Odonnell MD [address] [place] [address] YAKELIN@[facility] Thoracic Surgery 07/11/17 Gavi Black MD [address] [place] [address] [email or web address] Hematology and Oncology 07/18/17 Luisito Mckeon MD Primary Care Physician Endocrinology 10/02/17 Adina Mac RN [address] [place] [address] [email or web address] Primary Infusion Nurse 11/08/17 Luciana Brennan, RN 44 [place] [address] XAVIER@[facility] Primary Infusion Nurse 11/08/17 Alonso Pickett MD [address] [place] [address] Dr Fiore [address] [place] [address] Gynecologic Oncology 12/13/18 Cally Tolliver LICSW [address] [place] [address] Dr Fiore [address] [place] [address] Alexia@[email or web address] Radio Aerial Installer Oncology 12/29/21 documented as of this encounter Additional Source Comments The information contained in this document represents components of the legal health record. It is not the complete legal health record.[facility]
--- OUTSIDE RECORDS SUMMARY | 2025-09-18 18:44 | XMS_ITS | Encounter Summary ---
Author Organization [facility] Address [address] [place] [address] Phone Care Team Providers Care Purchasing Assistant Name Role Phone Diomedes Odonnell MD Unavailable [phone] Gavi Black MD Unavailable [phone] Luisito Mckeon MD Unavailable Unavailable Luisito Mckeon MD Primary Care Provider Unavail able Adina Mac RN Unavailable [phone] Luciana Brennan RN Unavailable OSVALDO BRENNAN@[facility].[place].[facility] Alonso Pickett MD Unavailable [phone] Cally Tolliver Unavailable Michelle Tolliver@[facility] Encounter Details Date Type Department Care Team (Late st Contact Info) Description 09/24/2020 [facility] [place] [address] [address] Social History Tobacco Use Types [...] on filedocumented in this encounter Care Teams Purchasing Assistant Relationship Specialty Start Date End Date Luisito Mckeon MD PCP - General Endocrinology 10/11/17 Diomedes Odonnell MD [address] [place] [address] 261 [place] [address] YAKELIN@[facility] Thoracic Surgery 07/11/17 Gavi Black MD [address] [place] [address] [email or web address] Hematology and Oncology 07/18/17 Luisito Mckeon MD Primary Care Physician Endocrinology 10/02/17 Adina Mac, RN 44 [place] [address] Osmin@[facility] Primary Infusion Nurse 11/08/17 Luciana Brennan RN [address] [place] [address] XAVIER@[facility] Primary Infusion Nurse 11/08/17 Alonso Pickett MD [address] [place] [address] Dr Fi[address] [place] [address] [phone] Gynecologic Oncology 12/13/18 Cally Tolliver LICSW [address] [place] [address] Dr Fiore [address] [place] [address] Alexia@[facility] Barley Steeper Oncology 12/29/21 documented as of this encounter Additional Source Comments The information contained in this document represents components of the legal health record. It is not the complete legal health record.[facility]
--- OUTSIDE RECORDS SUMMARY | 2025-09-18 18:44 | XMS_ITS | Encounter Summary ---
Author Organization [facility] Address [address] [place] [address] Phone Care Team Providers Care Marine Chronometer Assembler Name Role Phone Diomedes Odonnell MD Unavailable [phone] Gavi Black MD Unavailable [phone] Kenn Hennessy MD Unavailable [phone] Luisito Mckeon MD Unavailable Unavailable Masha Garcia RN Unavailable edward@ [facility].[place] Luisito Mckeon MD Primary Care Provider Unavail able Adina Mac RN Unavailable [phone] Luciana Brennan RN Unavailable OSVALDO BRENNAN@[facility].[place] Alonso Pickett MD Unavailable [phone] Cally Tolliver Unavailable Michelle Tolliver@[email or web address].[email or web address] Encounter Details Date Type Department Care Team (Late st Contact Info) Description 10/11/2017 Procedure Pass [facility], [facility] [place] [address] [facility], Floor [address]1 [place] [address] Social History Tobacco Use Types Packs/Day Years [...] on filedocumented in this encounter Care Teams Marine Chronometer Assembler Relationship Specialty Start Date End Date Luisito Mckeon MD PCP - General Endocrinology 10/11/17 Diomedes Odonnell MD [address] [place] [address] YAKELIN@[facility] Thoracic Surgery 07/11/17 Gavi Black MD [address] [place] [address] Matt@[facility] Hematology and Oncology 07/18/17 Kenn Hennessy MD [address] [place] [address] Internal Medicine 10/02/17 01/24/18 Luisito Mckeon MD Primary Care Physician Endocrinology 10/02/17 Masha Garcia, RN [address] [place] [address] [email or web address] Primary Infusion Nurse 10/09/17 11/07/17 Adina Mac, RN [address] [place] [address] Osmin@[email or web address] Primary Infusion Nurse 11/08/17 Luciana Brennan, RN [address] [place] [address] XAVIER@[facility] Primary Infusion Nurse 11/08/17 Alonso Pickett MD [address] [place] [address] Dr [address] [place] [address] Gynecologic Oncology 12/13/18 Cally Tolliver [address] Fiore [address] [place] [address] Alexia@[facility] Chicken Picker Oncology 12/29/21 documented as of this encounter Additional Source Comments The information contained in this document represents components of the legal health record. It is not the complete legal health record.[facility]
--- OUTSIDE RECORDS SUMMARY | 2025-09-18 18:44 | XMS_ITS | Encounter Summary ---
Author Organization [facility] Address [address] [place] [address] Phone Care Team Providers Care Cash Person Name Role Phone Diomedes Odonnell MD Unavailable [phone] Gavi Black MD Unavailable [phone] Luisito Mckeon MD Unavailable Unavailable Luisito Mckeon MD Primary Care Provider Unavail able Adina Mac RN Unavailable [phone] Luciana Brennan RN Unavailable OSVALDO BRENNAN@[facility].[facility] Alonso Pickett MD Unavailable [phone] Cally Tolliver Unavailable Michelle Tolliver@[facility] Reason for Visit * Reason Onset Date Comments Care Coordination 09/18/2025 VNA Encounter Details Date Type Department Care Team (Late st Contact Info) Description 09/18/2025 Telephone [facility] Center for Thoracic Oncology, [facility] [place] [address] [place] [address], 9th [place] [address] Ximena Barlow, RN [address] [facility] [place] [address] PATRICIO@[facility] Care Coordination (VNA ) Social History Tobacco Use Types Packs/Day Years [...] Pricilla Denson PA-C documented in this encounter Progress Notes * Ximena Barlow RN - 09/18/2025 9:02 AM EST [facility]- [phone] and - able to accept patient to services. Referral/orders to be faxed Message left for clint jimenez with update and contact for [facility]. Team made aware Ximena Barlow RN, BSN, OCN Thoracic Oncology Nurse Navigator [facility] [place] documented in this encounter Plan of Treatment Not on file documented as of this encounter Visit Diagnoses Not on filedocumented in this encounter Care Teams Cash Person Relationship Specialty Start Date End Date Luisito Mckeon MD PCP - General Endocrinology 10/11/17 Diomedes Odonnell MD [address] [place] [address] YAKELIN@[facility] Thoracic Surgery 07/11/17 Gavi Black MD [address] [place] [address] [email or web address] Hematology and Oncology 07/18/17 Luisito Mckeon MD Primary Care Physician Endocrinology 10/02/17 Adina Mac, RN [address] [place] [address] Osmin@[facility] Primary Infusion Nurse 11/08/17 Luciana Brennan, RN [address] [place] [address] XAVIER@[facility] Primary Infusion Nurse 11/08/17 Alonso Pickett MD [address] [place] [address] Dr [address] [place] [address] [phone] Gynecologic Oncology 12/13/18 Cally Tolliver LICSW [address] [place] [address] Dr Fiore [address] [place] [address] Alexia@[email or web address] Sap Trainer Oncology 12/29/21 documented as of this encounter Additional Source Comments The information contained in this document represents components of the legal health record. It is not the complete legal health record.[facility]
--- OUTSIDE RECORDS SUMMARY | 2025-09-18 18:44 | XMS_ITS ---
Author Organization [facility] Address [address] [place] [address] Phone Care Team Providers Care Roller Painter Name Role Phone Diomedes Odonnell MD Unavailable [phone] Gavi Black MD Unavailable [phone] Luisito Mckeon MD Unavailable Unavailable Luisito Mckeon MD Primary Care Provider Unavail able Adina Mac RN Unavailable [phone] Luciana Brennan RN Unavailable OSVALDO BRENNAN@[facility].[place] Alonso Pickett MD Unavailable [phone] Cally Tolliver Unavailable Michelle Tolliver@[facility] Active Problems Patient Care Coordination No te Formatting of this note migh t be different from the original. 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 Past Treatment and Therapy Plans Oncology Therapy Plan Plan Name Start Date Discontinue Date Treatment Medications Discontinue Reason Plan Provider VITAMIN B-12 (CYANOCOBALAM IN) 11/01/2017 04/29/2025 No medications scheduled. a. Therapy Complete Gavi Black MD TREATMENT PLAN Plan Name Start Date Discontinue Date Treatment Medications Discontinue Reason Plan Provider Cycles PEMETREX ED/CISPL ATIN 7 04/17/2025 CISplatin (PLATINOL) IVPB 270 mLPEMEtrexed (ALIMTA) in NS IVPB a. Therapy Complete Gavi Black MD 4 of 4 cycles started
--- OUTSIDE RECORDS SUMMARY | 2025-09-18 18:44 | XMS_ITS | Encounter Summary ---
Author Organization [facility] Address [address] [place] [address] Phone Care Team Providers Care Electrician Sound Name Role Phone Diomedes Odonnell MD Unavailable Gavi Black MD Unavailable [phone] Luisito Mckeon MD Unavailable Unavailable Luisito Mckeon MD Primary Care Provider Unavail able Adina Mac RN Unavailable [phone] Luciana Brennan RN Unavailable OSVALDO BRENNAN@[facility].[place] Alonso Pickett MD Unavailable [phone] Cally Tolliver Unavailable Michelle Tolliver@[facility] Encounter Details Date Type Department Care Team (Late st Contact Info) Description 06/19/2024 Procedure Pass [facility] [place], [place] [address] [address] Social History Tobacco Use Types Packs/Day Years [...] on filedocumented in this encounter Care Teams Electrician Sound Relationship Specialty Start Date End Date Luisito Mckeon MD PCP - General Endocrinology 10/11/17 Diomedes Odonnell MD [address] [place] [address] YAKELIN@[facility] Thoracic Surgery 07/11/17 Gvai Black MD [address] [place] [address] Matt@[email or web address] Hematology and Oncology 07/18/17 Luisito Mckeon MD Primary Care Physician Endocrinology 10/02/17 Adina Mac, RN [address] [place] [address] Osmin@[facility] Primary Infusion Nurse 11/08/17 Luciana Brennan RN [address] [place] [address] XAVIER@[facility] Primary Infusion Nurse 11/08/17 Alonso Pickett MD [address] [place] [address] Dr [address] [place] [address] Gynecologic Oncology 12/13/18 Cally Tolliver LICSW [address] [place] [address] Dr Fiore [address] [place] [address] Alexia@[facility] Workday Consultant Oncology 12/29/21 documented as of this encounter Additional Source Comments The information contained in this document represents components of the legal health record. It is not the complete legal health record.[facility]
--- OUTSIDE RECORDS SUMMARY | 2025-09-18 18:44 | XMS_ITS | Encounter Summary ---
Author Organization [facility] Address [address] [place] [address] Phone Care Team Providers Care Development Advisor Name Role Phone Diomedes Odonnell MD Unavailable [phone] Gavi Black MD Unavailable [phone] Kenn Hennessy MD Unavailable [phone] Luisito Mckeon MD Unavailable Unavailable Masha Garcia RN Unavailable edward@ [facility].[place].[facility] Luisito Mckeon MD Primary Care Provider Unavail able Adina Mac RN Unavailable [phone] Luciana Brennan RN Unavailable OSVALDO BRENNAN@[facility].[place] Alonso Pickett MD Unavailable [phone] Cally Tolliver Unavailable Michelle Tolliver@[facility].[place] Encounter Details Date Type Department Care Team (Late st Contact Info) Description 10/11/2017 Procedure Pass Radha L[facility] Imaging Department, [facility] [place] [address] [facility], Floor [address] [place] [address] Social History Tobacco Use Types Packs/Day Years [...] on filedocumented in this encounter Care Teams Development Advisor Relationship Specialty Start Date End Date Luisito Mckeon MD PCP - General Endocrinology 10/11/17 Diomedes Odonnell MD [address] [place] [address] YAKELIN@[facility] Thoracic Surgery 07/11/17 Gavi Black MD [address] [place] [address] Matt@[facility] Hematology and Oncology 07/18/17 Kenn Hennessy MD [address] [place] [address] Internal Medicine 10/02/17 01/24/18 Luisito Mckeon MD Primary Care Physician Endocrinology 10/02/17 Masha Garcia, RN [address] [place] [address] [email or web address] Primary Infusion Nurse 10/09/17 11/07/17 Adina Mac, RN [address] [place] [address] Osmin@[facility] Primary Infusion Nurse 11/08/17 Luciana Brennan, RN [address] [place] [address] XAVIER@[facility] Primary Infusion Nurse 11/08/17 Alonso Pickett MD [address] [place] [address] Dr Fi[address] [place] [address] Gynecologic Oncology 12/13/18 Cally Tolliver [address] Fiore [address] [place] [address] Alexia@[facility] Senior Power Scheduler Oncology 12/29/21 documented as of this encounter Additional Source Comments The information contained in this document represents components of the legal health record. It is not the complete legal health record.[facility]
--- OUTSIDE RECORDS SUMMARY | 2025-09-18 18:44 | XMS_ITS | Encounter Summary ---
Author Organization [facility] Address [address] [facility] [address] [place] [address] Phone Care Team Providers Care Plan Nurse Name Role Phone Diomedes Odonnell MD Unavailable [phone] Gavi Black MD Unavailable [phone] Luisito Mckeon MD Unavailable Unavailable Luisito Mckeon MD Primary Care Provider Unavail able Adina Mac RN Unavailable [phone] Luciana Brennan RN Unavailable OSVALDO BRENNAN@[email or web address].[facility] Alonso Pickett MD Unavailable [phone] Cally Tolliver Unavailable Michelle Tolliver@[email or web address].[facility] Encounter Details Date Type Department Care Team (Late st Contact Info) Description 01/25/2018 Procedure Pass [facility] [address] [place] [address] Social History Tobacco Use Types Packs/Day Years [...] of Assessment Author No 08/19/2017 7:47 AM EDPricilla Andersen PA-C * Patient has serious difficulty dressing [...] on filedocumented in this encounter Care Teams Plan Nurse Relationship Specialty Start Date End Date Luisito Mckeon MD PCP - General Endocrinology 10/11/17 Diomedes Odonnell MD [address] [place] [address] YAKELIN@[email or web address] Thoracic Surgery 07/11/17 Gavi Black MD [address] [place] [address] [email or web address] Hematology and Oncology 07/18/17 Luisito Mckeon MD Primary Care Physician Endocrinology 10/02/17 Adina Mac, RN [address] [place] [address] [email or web address]. [facility] Primary Infusion Nurse 11/08/17 Luciana Brennan RN [address] [place] [address] XAVIER@[email or web address] Primary Infusion Nurse 11/08/17 Alonso Pickett MD [address] [place] [address] Dr Fi[address] [place] [address] [phone] Gynecologic Oncology 12/13/18 Cally Tolliver LICSW [address] [place] [address] Dr Fiore [address] [place] [address] Alexia@[email or web address] Induction Coordination Power Engineer Oncology 12/29/21 documented as of this encounter Additional Source Comments The information contained in this document represents components of the legal health record. It is not the complete legal health record.[facility]
--- OUTSIDE RECORDS SUMMARY | 2025-09-18 18:44 | XMS_ITS | Encounter Summary ---
Author Organization [facility] Address [address] [facility] [address] [place] [address] Phone Care Team Providers Care Director Of Marketing Communications Name Role Phone Diomedes Odonnell MD Unavailable Gavi Black MD Unavailable [phone] Luisito Mckeon MD Unavailable Unavailable Luisito Mckeon MD Primary Care Provider Unavail able Adina Mac RN Unavailable [phone] Luciana Brennan RN Unavailable OSVALDO BRENNAN@[email or web address] Alonso Pickett MD Unavailable [phone] Cally Tolliver Unavailable Michelle Tolliver@[email or web address] Encounter Details Date Type Department Care Team (Late st Contact Info) Description 01/21/2025 Procedure Pass [facility] Endoscopy Department [address] [place] [address] Social History Tobacco Use Types Packs/Day Years [...] in this encounter Care Teams Director Of Marketing Communications Relationship Specialty Start Date End Date Luisito Mckeon MD PCP - General Endocrinology 10/11/17 Diomedes Odonnell MD [address] [place] [address] YAKELIN@[facility] Thoracic Surgery 07/11/17 Gavi Black MD [address] [place] [phone] Matt@[facility] Hematology and Oncology 07/18/17 Luisito Mckeon MD Primary Care Physician Endocrinology 10/02/17 Adina Mac, RN [address] [place] [address] [email or web address] Primary Infusion Nurse 11/08/17 Luciana Brennan, RN [address] [place] [address] XAVIER@[facility] Primary Infusion Nurse 11/08/17 Alonso Pickett MD [address] [place] [address] Dr Fi[address] [place] [address] Gynecologic Oncology 12/13/18 Cally Tolliver [address] Fiore [address] [place] [address] Alexia@[facility] Cook Fishing Vessel Oncology 12/29/21 documented as of this encounter Additional Source Comments The information contained in this document represents components of the legal health record. It is not the complete legal health record.[facility]
--- OUTSIDE RECORDS SUMMARY | 2025-09-18 18:44 | XMS_ITS | Encounter Summary ---
Author Organization [facility] Address [address] [facility] [address] [place] [address] Phone Care Team Providers Care Tar Heater Operator Name Role Phone Diomedes Odonnell MD Unavailable [phone] Gavi Black MD Unavailable [phone] Kenn Hennessy MD Unavailable [phone] Luisito Mckeon MD Unavailable Unavailable Masha Garcia RN Unavailable [email or web address] Luistio Mckeon MD Primary Care Provider Unavail able Adina Mac RN Unavailable [phone] Luciana Brennan RN Unavailable OSVALDO BRENNAN@[email or web address] Alonso Pickett MD Unavailable [phone] Cally Tolliver Unavailable Michelle Tolliver@[email or web address] Encounter Details Date Type Department Care Team (Late st Contact Info) Description 11/01/2017 Procedure Pass [facility], [facility] [place] [address] [facility], Floor [address] [place] [address] Social History Tobacco Use Types Packs/Day Years [...] on filedocumented in this encounter Care Teams Tar Heater Operator Relationship Specialty Start Date End Date Luisito Mckeon MD PCP - General Endocrinology 10/11/17 Diomedes Odonnell MD [address] [place] [address] [email or web address] Thoracic Surgery 07/11/17 Gavi Black MD [address] [place] [address] Matt@[facility] Hematology and Oncology 07/18/17 Kenn Hennessy MD [address] [place] [address] Internal Medicine 10/02/17 01/24/18 Luisito Mckeon MD Primary Care Physician Endocrinology 10/02/17 Masha Garcia, RN [address] [place] [address] [email or web address] Primary Infusion Nurse 10/09/17 11/07/17 Adina Mac, RN [address] [place] [address] [email or web address] Primary Infusion Nurse 11/08/17 Luciana Brennan, RN [address] [place] [address] XAVIER@[email or web address] Primary Infusion Nurse 11/08/17 Alonso Pickett MD [address] [place] [address] Dr Fi[address] [place] [address] Gynecologic Oncology 12/13/18 Cally Tolliver [address] Fiore [address] [place] [address] Alexia@[facility] Floor Person Oncology 12/29/21 documented as of this encounter Additional Source Comments The information contained in this document represents components of the legal health record. It is not the complete legal health record.[facility]
--- OUTSIDE RECORDS SUMMARY | 2025-09-18 18:44 | XMS_ITS | Encounter Summary ---
Author Organization [facility] Address [address] [facility] [address] [place] [address] Phone Care Team Providers Care Advanced Registered Nurse Name Role Phone Diomedes Odonnell MD Unavailable [phone] Gavi Black MD Unavailable [phone] Luisito Mckeon MD Unavailable Unavailable Luisito Mckeon MD Primary Care Provider Unavail able Adina Mac RN Unavailable [phone] Luciana Brennan RN Unavailable OSVALDO BRENNAN@[email or web address].[email or web address] Alonso Pickett MD Unavailable [phone] Cally Tolliver Unavailable Michelle Tolliver@[email or web address].[facility] Encounter Details Date Type Department Care Team (Late st Contact Info) Description 03/18/2025 Procedure Pass [facility] [address] [place] [address] Social History Tobacco Use Types Packs/Day Years [...] on filedocumented in this encounter Care Teams Advanced Registered Nurse Relationship Specialty Start Date End Date Luisito Mckeon MD PCP - General Endocrinology 10/11/17 Diomedes Odonnell MD [address] [place] [address] YAKELIN@[facility] Thoracic Surgery 07/11/17 Gavi Black MD [address] [place] [address] [email or web address] Hematology and Oncology 07/18/17 Luisito Mckeon MD Primary Care Physician Endocrinology 10/02/17 Adina Mac, RN [address] [place] [address] [email or web address] Primary Infusion Nurse 11/08/17 Luciana Brennan, RN [address] [place] [address] XAVIER@[facility] Primary Infusion Nurse 11/08/17 Alonso Pickett MD [address] [place] [address] Dr Fiore [address] [place] [address] Gynecologic Oncology 12/13/18 Cally Tolliver LICSW [address] [place] [address] Dr Fiore [address] [place] [address] Alexia@[email or web address] Field Logistics Coordinator Oncology 12/29/21 documented as of this encounter Additional Source Comments The information contained in this document represents components of the legal health record. It is not the complete legal health record.[facility]
--- OUTSIDE RECORDS SUMMARY | 2025-09-18 18:44 | XMS_ITS | Encounter Summary ---
Author Organization [facility] Address [address] [facility] [address] [place] [address] Phone Care Team Providers Care Batch And Furnace Operator Name Role Phone Diomedes Odonnell MD Unavailable Gavi Black MD Unavailable [phone] Luisito Mckeon MD Unavailable Unavailable Luisito Mckeon MD Primary Care Provider Unavail able Adina Mac RN Unavailable [phone] Luciana Brennan RN Unavailable OSVALDO BRENNAN@[email or web address] Alonso Pickett MD Unavailable [phone] Cally Tolliver Unavailable Michelle Tolliver@[email or web address] Encounter Details Date Type Department Care Team (Late st Contact Info) Description 09/18/2025 Social Work Social Work Department, [facility] [place] [address] [place] [address] Precious Cowart LICSW [address] [place] [address] [email or web address] Social History Tobacco Use Types Packs/Day Years [...] 08/19/2017 7:47 AM EDT Pricilla Simons PA-C documented as of this encounter Mental Status * Patient has serious difficulty concentrating, remembering, or making decisions due to physical, mental, or emotional condition Answer Entry Date Author No 08/19/2017 7:47 AM Pricilla Denson PA-C documented in this encounter Progress Notes * Precious Cowart LICSW - 09/18/2025 2:02 PM EST Social Work Encounter Note Date/Time of contact: 09/18/2025 / Contact with: patient, Lashawn Gudino Location: Phone Primary Language: Emirati Blow Molder/IPOP used: Not Applicable, patient's primary language is Emirati Narrative/intervention: Lashawn Gudino (preferred name Lashawn) is a Single, 80 y.o. year old female with a lung cancer diagnosis. SW met with Lashawn today to provide supportive counseling. Themes Discussed: SW spoke with patient's son Sim on the phone - he met with Dr. Black yesterday and today Lashawn's baseline appeared worse so they brought her to the ED. SW provided some insight into what to ask the team for next steps. SW will check in tomorrow. Plan: SW will continue to provide supportive counseling and psychoeducation to facilitate adjustment and optimize coping. Lashawn was encouraged to reach this commercial real estate underwriter for support if issues or concerns arise and was provided with SW contact information. Will collaborate with interdisciplinary care team to support goals of care. Unless otherwise noted, patient/family is in agreement with this plan. ASHLEE Sousa, APHSW-C Clinical Legal Officer Pronouns: she/her/hers [facility] [address] [place], [place] [phone] If you are reading this note, there may be information included to meet documentation standards and/or for compliance reasons. If you have questions about what you see, please bring it up during our visit or reach out by phone. documented in this encounter Plan of Treatment Not on file documented as of this encounter Visit Diagnoses Not on filedocumented in this encounter Care Teams Batch And Furnace Operator Relationship Specialty Start Date End Date Luisito Mckeon MD PCP - General Endocrinology 10/11/17 Diomedes Odonnell MD [address] [place] [address] [address] [place] [address] YAKELIN@[facility] Thoracic Surgery 07/11/17 Gavi Black MD [address] [place] [address] [email or web address] Hematology and Oncology 07/18/17 Luisito Mckeon MD Primary Care Physician Endocrinology 10/02/17 Adina Mac, RN [address] [place] [address] [email or web address] Primary Infusion Nurse 11/08/17 Luciana Brennan, RN [address] [place] [address] XAVIER@[facility] Primary Infusion Nurse 11/08/17 Alonso Pickett MD [address] [place] [address] Dr [address] [place] [address] Gynecologic Oncology 12/13/18 Cally Tolliver LICSW [address] [place] [address] Dr Fi[address] [place] [phone] Alexia@[facility] Legal Officer Oncology 12/29/21 documented as of this encounter Additional Source Comments The information contained in this document represents components of the legal health record. It is not the complete legal health record.[facility]
--- OUTSIDE RECORDS SUMMARY | 2025-09-18 18:44 | XMS_ITS | Encounter Summary ---
Author Organization [facility] Address [address] [facility] [address] [place] [address] Phone Care Team Providers Care Machinist Supervisor Name Role Phone Diomedes Odonnell MD Unavailable Gavi Black MD Unavailable [phone] Luisito Mckeon MD Unavailable Unavailable Luisito Mckeon MD Primary Care Provider Unavail able Adina Mac RN Unavailable [phone] Luciana Brennan RN Unavailable OSVALDO BRENNAN@[email or web address] Alonso Pickett MD Unavailable [phone] Cally Tolliver Unavailable Michelle Tolliver@[email or web address] Encounter Details Date Type Department Care Team (Late st Contact Info) Description 06/19/2024 Procedure Pass [facility] [place] [facility] [place] [place] [address] [address] Social History Tobacco Use Types Packs/Day Years [...] on filedocumented in this encounter Care Teams Machinist Supervisor Relationship Specialty Start Date End Date Luisito Mckeon MD PCP - General Endocrinology 10/11/17 Diomedes Odonnell MD [address] [place] [address] YAKELIN@[facility] Thoracic Surgery 07/11/17 Gavi Black MD [address] [place] [address] [email or web address] Hematology and Oncology 07/18/17 Luisito Mckeon MD Primary Care Physician Endocrinology 10/02/17 Adina Mac, RN [address] [place] [phone] [email or web address] Primary Infusion Nurse 11/08/17 Luciana Brennan RN [address] [place] [address] XAVIER@[facility] Primary Infusion Nurse 11/08/17 Alonso Pickett MD [address] [place] [address] Dr Fi[address] [place] [address] Gynecologic Oncology 12/13/18 Cally Tolliver LICSW [address] [place] [address] Dr Fiore [address] [place] [address] Alexia@[facility] Bar Manager Oncology 12/29/21 documented as of this encounter Additional Source Comments The information contained in this document represents components of the legal health record. It is not the complete legal health record.[facility]
[2025-09-18 19:03] VITALS: BP 174/91; PULSE 70; RESP 18; TEMP -17.7; TEMP 0; O2SAT 97
== END 2025-09-18 19:04 | disposition home or self-care (01) ==
PROVIDERS: Physician Assistant; Emergency Provider Emergency Medicine Emergency Medical Services
DX: N39.0 Urinary tract infection, site not specified (principal); R41.0 Disorientation, unspecified; R41.81 Age-related cognitive decline; Z79.899 Other long term (current) drug therapy
CPT/HCPCS: 36415; 70450; 80053; 81001; 82140; 82550; 85025; 87086; 99284

== ENCOUNTER 2025-09-27 13:21 | Emergency (ER) | payer MEDICARE, OTHER, SELFPAY ==
--- OUTSIDE RECORDS SUMMARY | 2025-09-25 14:00 | XMS_ITS | Encounter Summary ---
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 Name Role Phone Christina Alcala MD Primary Care Provider [phone] Reason for Referral * Home Health (Routine) - Pending Review Specialty Diagnoses / Procedures Referred By Babatunde brewer Referred To Contact Home Health Services Diagnoses Memory changes Urinary tract infection without hematuria, site unspecified Cathy Bauer PA [address] [place] [address] Phone: tel: fax: Referral ID Status Reason Start Date Expiration Date Visits Requested Visits Authorized [id number] Pending Review Consult and Treat 09/25/2026 1 1 Reason for Visit * Reason Comments AWV Encounter Details Date Type Department Care Team (Late st Contact Info) Description 09/25/2025 2:00 PM EST Office Visit Adult Medicine [address] [phone] Cathy Bauer PA [address] [place] [address] Encounter for annual wellness visit (AWV) in Medicare patient (Primary Dx); Hypothyroidism, unspecified type; Memory changes; Urinary tract infection without hematuria, site unspecified Social History Tobacco Use Types Packs/Day Years Used Date Smoking Tobacco: Never Smokeless Tobacco: Never Tobacco Cessation:Counseling Given: Not Answered Alcohol Use Standard Drinks/Week Comments No 0 (1 standard drink = 0.6 oz pur e alcohol) Housing Instability Answer Date Recorde d Are you worried that in the next 2 months you may not have stable housing? No 09/25/2025 Food Access & Nutrition Answer Date Rec orded Do you have access to a vari ety of food including fruits and vegetables? Yes 09/25/2025 Access to Healthcare Answer Date Record ed Within the last 3 months, ho w many times did you visit the emergency department for your medical care? 1 09/25/2025 Health Literacy Answer Date Recorded How often do you need to hav e someone help you when you read instructions, pamphlets, or other written material from your doctor or pharmacy? Always 09/25/2025 Caregiver: How often do you need to have someone help you when you read instructions, pamphlets, or other written material from your doctor or pharmacy? Not on file 09/25/2025 Financial Risk Answer Date Recorded How hard is it for you to pa y for the very basics like food, housing, medical care, and air conditioning / heating? Not very hard 09/25/2025 Transportation Answer Date Recorded Has the lack of transportati on kept you from meetings, work, or from getting things needed for daily living? No Has the lack of transportati on kept you from medical appointments or from getting medications? No 09/25/2025 Social Isolation Answer Date Recorded How often do you feel lonely or isolated from th ose around you? Never 09/25/2025 Food Risk Answer Date Recorded Within the past 12 months we worried whether our food would run out before we got money to buy more. Never true 09/25/2025 Within the past 12 months th e food we bought just didn't last and we didn't have money to get more. Never true 09/25/2025 Dependent Care Answer Date Recorded Do you need help finding or paying for care for your loved ones. For example, children's attendant or elderly care for an older adult? No 09/25/2025 Education Answer Date Recorded Do you think completing more education or training, like finishing a GED, going to college, or learning a trade, would be helpful for you? No 09/25/2025 Employment and Income Answer Date Recor ded During the last four weeks, have you been actively looking for work? No 09/25/2025 Living Situation Answer Date Recorded What is your living situation? Unrecognized valu e 09/25/2025 Comments No Sex and Gender Information Value Date Recorded Sex Assigned at Not on file Legal Sex Female 5:39 PM EST Gender Identity Not on file Sexual Orientation Not on file documented as of this encounter Last Filed Vital Signs Vital Sign Reading Time Taken Comments Blood Pressure 149/88 09/25/2025 2:06 PM EST A Pulse 76 09/25/2025 2:06 PM EST Temperature 36.4 C (97.6 F) 09/25/2025 1:53 PM EST Respiratory Rate 15 09/25/2025 1:53 PM EST Oxygen Saturation 97% 09/25/2025 1:53 PM EST Inhaled Oxygen Concentration - - Weight 49.6 kg (109 lb 4.8 oz) 09/25/2025 1:53 P M EST Height 157.5 cm (5' 2 ) 09/25/2025 1:53 PM EST Body Mass Index 19.99 09/25/2025 1:53 PM EST documented in this encounter Progress Notes * WENDY Crain - 09/25/2025 2:00 PM EST CHIEF COMPLAINT: AWV IDENTIFIER: Lashawn Gudino is a 80 y.o. old female. HPI: 80-year-old female presenting to the office (with her son, Sim) for evaluation. Patient was previously evaluated by PCP on 09/04/25 with complaints of cognitive impairment for which referral to neurology was provided. Subsequently, there is documentation from [facility] supporting concerns for cognitive impairment and question of dementia given worsening confusion, especially in the afternoons. Son reportedly found 5 months of medications including osimertinib for treatment of lung cancer which had not been taken. Additional triage nurse documentation with son reporting patient may not eat or drink for 24-48 hours, frequently crying, reporting fear of being alone. Patient was recommended for VNA services/assisted living, but son reports patient has been resistant to either option. He states patient was evaluated last week at [facility] and reports brain CT scan and labs were normal with urine studies suggestive of UTI and patient was prescribed 7-day course of Macrobid which was unhelpful. He is questioning if persistent UTI may be responsible forongoing confusion. We did discuss that there are no notes visible for review later than February 2025 from [facility]. Son states he did receive referral information for [facility] neurology, but has not called toschedule this evaluation. Son reports there is no healthcare proxy or DURABLE POWER OF CHROME PLATER HELPER in place. 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 Diverticulosis of colon without hemorrhage 02/11/2010 Hemorrhage of gastrointestinal tract 02/11/2010 Stroke ([facility] V24, [facility] V28) 01/03/2008 Anxiety 12/11/2007 Osteoporosis 10/20/2005 Surgical History[1] SOCIAL HISTORY: Social History Tobacco Use Smoking status: Never Smokeless tobacco: Never Substance Use Topics Alcohol use: No FAMILY HISTORY: Family History[2] Family Status Relation Name Status Mother (Not Specified) Father (Not Specified) Brother (Not Specified) No partnership data on file MEDICATIONS DISCONTINUED/REORDERED: There are no discontinued medications. ACTIVE MEDICATIONS: Medications Taking[3] ALLERGIES: Allergies[4] PHYSICAL EXAM: Visit Vitals BP (!) 149/88 Comment: A Pulse 76 Temp 36.4 ??C (97.6 ??F) (Oral) Resp 15 Ht 1.575 m (62 ) Wt 49.6 kg (109 lb 4.8 oz) SpO2 97% BMI 19.99 kg/m?? OB Status Postmenopausal Smoking Status Never BSA 1.48 m?? Wt Readings from Last 5 Encounters: 09/25/25 49.6 kg (109 lb 4.8 oz) 09/04/25 50.7 kg (111 lb 12.8 oz) 05/23/24 48.1 kg (106 lb) 05/23/23 48.5 kg (107 lb) 03/15/23 48.5 kg (107 lb) BMI is 18.5 to 24.9 (within the normal range) and will be followed APPEARANCE: Alert and in no acute distress HEART: RRR with normal S1 and S2, no murmurs, no gallops LUNG: Bilateral lung madden clear to auscultation throughout ABDOMEN: Soft, nontender, tympanitic to percussion, normoactive bowel sounds noted throughout all four quadrants, no hepatosplenomegaly, palpable masses, or bruits noted upon auscultation. PSYCH: Patient repeatedly asking questions, belligerent, using profanity LABS: Orders Placed This Encounter Procedures Comprehensive metabolic panel CBC and differential Urinalysis with reflex microscopic and culture Thyroid stimulating hormone Ambulatory referral to Home Health IMAGING: None IMPRESSION: 1. Memory changes 2. Hypothyroidism, unspecified type 3. Urinary tract infection without hematuria, site unspecified PLAN: Case discussed with PCP. Ordered labs and repeat urine studies as noted above. Strongly encouraged to contact neurology to schedule evaluation for likely dementia. Son is also provided with written contact information for [facility] as well as multiple assisted living/respite facilities as well as counseled on these options by Carlitos Coleman LPN at time of visit. We did discuss for any crisis or safety concerns to report to the ER. Medication and lab orders: Orders Placed This Encounter Procedures Comprehensive metabolic panel CBC and differential Urinalysis with reflex microscopic and culture Thyroid stimulating hormone Ambulatory referral to Home Health Other orders: AMB REFERRAL TO HOME HEALTH WENDY Crain on 09/26/2025 at 11:04 AM EST This chart was generated by the [employer] system and [employer] speech recognition software and may contain inherent errors or omissions not intended by the user. Grammatical errors, random word insertions, deletions, pronoun errors and incomplete sentences are occasional consequences of this technologydue to software limitations. Not all errors are caught or corrected. If there are questions or concerns about the content of this note or information contained within the body of this dictation they should be addressed directly with the author for clarification. [1] Past Surgical History: Procedure Laterality Date BREAST BIOPSY benign BREAST BIOPSY Right 1989 : rt. breast bx-benign COLONOSCOPY 02/23/2010 diverticulosis COLONOSCOPY 12/06/2004 : diverticulosis HYSTERECTOMY : bilateral salpingo oophorectomy OTHER SURGICAL HISTORY Right 2018 pneumonectomy TONSILLECTOMY UPPER GASTROINTESTINAL ENDOSCOPY 02/23/2010 minimal gastritis; duodenal bx: wnl [2] Family History Problem Relation Name Age of Onset Diabetes Mother , [place] Other (Other: ? stroke) Father Heart attack Brother coronary stent at age 59 [3] Outpatient Medications Marked as Taking for the 09/25/25 encounter (Office Visit) with WENDY Crain Medication Sig Dispense Refill cholecalciferol (VITAMIN D-3) 125 mcg (5,000 unit) capsule Take 1 capsule (5,000 Units total) by mouth 1 (one) time each day. citalopram (CeleXA) 20 mg tablet Take 1 tablet (20 mg total) by mouth daily. levothyroxine (SYNTHROID, LEVOTHROID) 88 mcg tablet Take 1 tablet (88 mcg total) by mouth 1 (one) time each day before breakfast. 90 tablet 1 nitrofurantoin, macrocrystal-monohydrate, (MACROBID) 100 mg capsule Take 1 capsule (100 mg total) by mouth 2 (two) times a day. osimertinib (TAGRISSO) 40 mg tablet Take 1 tablet (40 mg total) by mouth daily [4] Allergies Allergen Reactions Diphenhydramine Hcl Oxycodone-Acetaminophen Psychiatric Pseudoephedrine Anxiety and Other Insomnia- hyperactive * WENDY Crain - 09/25/2025 2:00 PM EST Images from the original note were not included. Medicare Annual Wellness Visit Note Patient Name: Lashawn Gudnio Date of : 1945 Race: White Ethnicity: Not Hispan/Lat Date of Service: 09/25/2025 Patient Care Team: Christina Alcala MD as PCP - General (Internal Medicine) DME: -- HPI: Lashawn is a 80 y.o. female presenting for Annual Wellness Visit Problem List[1] Allergies[2] Current Outpatient Medications Medication Instructions aspirin 81 mg, Daily calcium carbonate (TUMS) 250 mg ([place] 100 mg) ChewTab Take by mouth. cholecalciferol (VITAMIN D-3) 125 mcg (5,000 unit) capsule 1 capsule, Daily citalopram (CELEXA) 20 mg, Daily levothyroxine (SYNTHROID, LEVOTHROID) 88 mcg, oral, Every morning before breakfast multivitamin (sytvbgmmbwbg-yeiu-oezpxbjg) tablet 1 tablet, Daily nitrofurantoin, macrocrystal-monohydrate, (MACROBID) 100 mg capsule 100 mg, 2 times daily osimertinib (TAGRISSO) 40 mg, Daily Medical History[3] Surgical History[4] Social History[5] Family History[6] Immunization History Administered Date(s) Administered COVID-19 (Moderna/Spikevax) 12yo and older 12/16/2023 Influenza Quadravalent, 0.5ml (Fluzone High-dose) 65yo and older 08/26/2022 Influenza trivalent, 0.5mL (Fluad) 65yo and older 09/04/2025 Influenza trivalent, 0.5mL (Fluzone High-dose) 65yo and older 07/22/2016, 08/30/2017, 09/03/2018, 12/05/2019, 09/29/2020, 08/19/2021 Influenza trivalent, with preservative (Fluzone; Afluria) 6mo and older 08/04/2009, 07/20/2010, 07/19/2011, 10/10/2012, 08/08/2014, 08/05/2015 Moderna (age 6mo & older) Bivalent, COVID-19, 0.5 mL or 0.25 mL dosage 09/02/2022 Moderna SARS-CoV-2 COVID-19, mRNA, LNP-S, preservative free 10/20/2021 Pfizer SARS-CoV-2 COVID-19, mRNA, LNP-S, preservative free 01/21/2021, 02/11/2021 Pneumococcal conjugate 13 valent (Prevnar 13, PCV13) 2mo and older 01/26/2016 Pneumococcal polysaccharide 23 valent (Pneumovax 23) 2yo and older 06/08/2009, 09/16/2014 Td Tetanus diptheria (Tdvax) 7yo and older 05/14/2007 Tdap Tetanus diptheria acellular pertussis (Boostrix; Adacel) 7yo and older 09/15/2014 Health Maintenance Topic Date Due Zoster Vaccines (1 of 2) Never done RSV Immunization Adult Patients (1 - 1-dose 75+ series) Never done Medicare Annual Wellness Visit 02/10/2023 DTaP,Tdap,and Td Vaccines (3 - Td or Tdap) 09/15/2024 Depression Screening Never done COVID-19 Vaccine (6 - 2025-26 season) 2025 Falls Risk Assessment 09/25/2026 Social Influencers of Health Screening 09/25/2026 Cholesterol Screening (Lipid Panel) 12/13/2028 Osteoporosis Screening (Bone Density Screening) 03/30/2031 Influenza Vaccine Completed Pneumococcal Vaccine: 50+ Years Completed HIB Vaccines Aged Out Hepatitis B Vaccines Aged Out IPV Vaccines Aged Out Hepatitis A Vaccines Aged Out MMR Vaccines Aged Out Varicella Vaccines Aged Out Meningococcal ACWY Vaccine Aged Out Meningococcal B Vaccine Aged Out HPV Vaccines Aged Out RSV Immunization Patients Under 20 months Aged Out Cognitive Function Assessment: Cognitive screening performed. Mini COG Clock Drawing Test: Abnormal (pt declined) Word Recall: No Words Mini Cog Score: 0 Mini Cog Results: Positive screen for dementia Fall Screening: Fallen in the past year?: Yes Number of falls in the past year: 1 Any injuries from falls?: No Feels unsteady when standing or walking?: Yes Worries about falling?: Yes Activity of Daily Living (ADLs): Activity of Daily Living (ADLs) Are you able to independently move around your home, with or without an assistive device such as a walker or wheelchair?: Yes Do you need help from others grooming, bathing, or dressing?: No Do you need help from others with eating?: No Do you experience urinary incontinence?: No Do you experience fecal incontinence?: No Instrumental Activities of Daily Living (IADLs): Do you need help with using the telephone?: No Do you need help with shopping?: Yes Do you need help with food preparation?: No Do you need help with housekeeping?: Yes Do you need help with laundry?: Yes Do you need help handling finances?: Yes Do you drive?: Yes Do you manage your own medication?: No Functional Ability and Level of Safety Review Health Status: Have you been hospitalized since we last saw you?: Yes If you use medical equipment (e.g.: CPAP Machine), do you have a preferred supplier?: No In general, the patient reports health as: good Patient reports sleep pattern as: sleeping more Have you been bothered by sexual problems? : No Have you seen a dentist in the last year?: No Physical Activity: Do you exercise for about 20 minutes or more three days a week?: Yes, sometimes Nutritional Assessment: Do you eat a balanced diet including daily serving of fruits, vegetables, and whole grains?: No Safety: Safety: Does the patient live alone?: Yes Does your home have throw rugs, poor lighting, or a slippery bathtub/shower?: Yes Do you use any assistive devices?: No Do you always fasten your seatbelt?: Yes Psychosocial Risks: Has stress been negatively affecting your life?: Yes Has anger been negatively affecting your life?: Yes Have you been bothered by unusual fatigue?: Yes Social Determinants of Health Social Influencers of Health Who provided answers?: Daughter/Son Within the past 12 months we worried whether our food would run out before we got money to buy more.: Never true Within the past 12 months the food we bought just didn't last and we didn't have money to get more.: Never true How hard is it for you to pay for the very basics like food, housing, medical care, and air conditioning / heating?: Not very hard Are you worried that in the next 2 months you may not have stable housing?: No Do you have access to a variety of food including fruits and vegetables?: Yes Within the last 3 months, how many times did you visit the emergency department for your medical care?: 1 Has the lack of transportation kept you from meetings, work, or from getting things needed for daily living?: No Has the lack of transportation kept you from medical appointments or from getting medications?: No How often do you feel lonely or isolated from those around you?: Never How often do you need to have someone help you when you read instructions, pamphlets, or other written material from your doctor or pharmacy?: Always Objective BP (!) 149/88 Comment: A Pulse 76 Temp 36.4 ??C (97.6 ??F) (Oral) Resp 15 Ht 1.575 m (62 ) Wt 49.6 kg (109 lb 4.8 oz) BMI 19.99 kg/m?? SpO2: 97 % Hearing: -- Vision Screening: Previously reported wearing contacts Physical Exam Patient presented today for an subsequent annual wellness visit. Risk Assessments: Body mass index is 19.99 kg/m??. The BMI is in the acceptable range. Fall Risk: Have you fallen in the past year? yes. Are you worried about falling? yes. Discussed: removal of throw rugs in home, adequate lighting/night lights, pausing with transitional movements, paying attention to surroundings, and clear pathways/stairs Depression plan: Patient declines screening questions PHQ-9: Pain Medication: Patient does not take any opioid medications Advance Care Planning Advance care planning is the process of planning for future medical care in case you are unable to make your own medical decisions. It involves choosing a health care customer loyalty representative and reviewing future health care directives. The patient Advance Directives: does not have advance directives or surrogate decision maker.. Health Maintenance Due Topic Date Due Zoster Vaccines (1 of 2) Never done RSV Immunization Adult Patients (1 - 1-dose 75+ series) Never done Medicare Annual Wellness Visit 02/10/2023 DTaP,Tdap,and Td Vaccines (3 - Td or Tdap) 09/15/2024 Depression Screening Never done COVID-19 Vaccine (2024- season) 2025 The following vaccine(s) were recommended: Vaccines Recommended: COVID vaccine, Shingles vaccines (Shringrix) , RSV vaccine (Arexvy or Abrysvo), Pneumococcal (Pneumonia) vaccine, and Tdap or Td vaccine Patient Instructions (the written plan) as discussed and documented in our visit today. WENDY Crain [facility] [address] Dept: [phone] Dept This chart was generated by the [employer] system and [employer] speech recognition software and may contain inherent errors or omissions not intended by the user. Grammatical errors, random word insertions, deletions, pronoun errors and incomplete sentences are occasional consequences of this technologydue to software limitations. Not all errors are caught or corrected. If there are questions or concerns about the content of this note or information contained within the body of this dictation they should be addressed directly with the author for clarification. [1] Patient Active Problem List Diagnosis Anxiety Hx of papillary thyroid carcinoma Cyst of spleen Diverticulosis of colon without hemorrhage Gastritis Hemorrhage of gastrointestinal tract Hyperlipidemia Hypothyroidism Iron deficiency anemia secondary to blood loss (chronic) Malignant neoplasm of lung (CMS/HCC V24, CMS/HCC V28) Osteoporosis Pneumothorax Pulmonary insufficiency Stroke (CMS/HCC V24, CMS/HCC V28) Vitamin D deficiency [2] Allergies Allergen Reactions Diphenhydramine Hcl Oxycodone-Acetaminophen Psychiatric Pseudoephedrine Anxiety and Other Insomnia- hyperactive [3] Past Medical History: Diagnosis Date Carcinoma of thyroid gland ([facility] [place], [facility] V28) 07/18/2017 Micropapillary s/p thyroid resction Diverticulosis of colon (without mention of hemorrhage) 02/11/2010 Gastritis 02/23/2010 Hemorrhage of gastrointestinal tract, unspecified 02/11/2010 Iron deficiency anemia secondary to blood loss (chronic) 02/23/2010 Malignant neoplasm of lung ([facility] V24, [facility] V28) 08/30/2017 Right lung biopsy, 06/21/2017; poorly differentiated adenoca, chemo Right pneumonectomy, 01/08/2018 Left lung ground glass, enlarging, on chemo, presumed lung cancer Osteoporosis 10/20/2005 Pneumothorax 08/18/2017 Stroke ([facility], [facility] V28) 01/03/2008 Lacunar infarct, follow-up MRI recommended 12/2008 Vitamin D deficiency 05/05/2013 [4] Past Surgical History: Procedure Laterality Date BREAST BIOPSY benign BREAST BIOPSY Right 1989 : rt. breast bx-benign COLONOSCOPY 02/23/2010 diverticulosis COLONOSCOPY 12/06/2004 : diverticulosis HYSTERECTOMY : bilateral salpingo oophorectomy OTHER SURGICAL HISTORY Right 2018 pneumonectomy TONSILLECTOMY UPPER GASTROINTESTINAL ENDOSCOPY 02/23/2010 minimal gastritis; duodenal bx: wnl [5] Social History Tobacco Use Smoking status: Never Smokeless tobacco: Never Substance Use Topics Alcohol use: No Drug use: No [6] Family History Problem Relation Name Age of Onset Diabetes Mother , [place] Other (Other: ? stroke) Father Heart attack Brother coronary stent at age 59 documented in this encounter Plan of Treatment Scheduled Referrals Name Type Priority Associated Diagnoses Order Schedule Ambulatory referral to Home Health Outpatient Referral Routine Memory changes Urinary tract infection without hematuria, site unspecified 1 Occurrences starting 09/25/2025 until 09/25/2026 documented as of this encounter Results * (ABNORMAL) Comprehensive metabolic panel (09/25/2025 3:04 PM EST) Sodium 130(L) 133 - 145 mmol/L 09/25/2025 5:17 PM EST [facility] Potassium 3.2(L) 3.5 - 5.5 mmol/L 09/25/2025 5:17 PM [facility] Chloride 92(L) 96 - 110 mmol/L 09/25/2025 5:17 PM [facility] CO2 27 21 - 32 mmol/L 09/25/2025 5:17 PM [facility] Anion Gap 11 3 - 11 09/25/2025 5:17 PM [facility] Glucose 89 70 - 100 mg/dL 09/25/2025 5:17 PM [facility] BUN 15 5 - 25 mg/dL 09/25/2025 5:17 PM [facility] Creatinine 0.88 0.50 - 1.10 mg/dL 09/25/2025 5:17 PM [facility] eGFR 66 >=60 mL/min/1. 73m2 09/25/2025 5:17 PM [facility] Comment:Calculation based on the Chronic Kidney Disease Epidemiology Collaboration (CKD-EPI) equation refit without adjustment for race. BUN/Creatinine Ratio 17.0 09/25/2025 5:17 PM [facility] Calcium 8.7 8.5 - 10.5 mg/dL 09/25/2025 5:17 PM [facility] AST (SGOT) 43(H) 10 - 42 unit/L 09/25/2025 5:17 PM [facility] ALT (SGPT) 33 10 - 60 unit/L 09/25/2025 5:17 PM [facility] Alkaline Phosphatase 75 42 - 121 unit/L 09/25/2025 5:17 PM [facility] Total Protein 6.8 6.0 - 8.0 g/dL 09/25/2025 5:17 PM [facility] Albumin 4.2 3.2 - 5.0 g/dL 09/25/2025 5:17 PM EST [facility] Total Bilirubin 0.8 0.0 - 1.4 mg/dL 09/25/2025 5:17 PM EST [facility] Blood Venous blood specimen / Unknown Venipuncture / Unknown 09/25/2025 3:04 PM EST 09/25/2025 3:04 PM EST us Cathy NGUYEN LAB BLOOD ORDERABLES Final Re sult [facility] [address] [place] [address], documented in this encounter Visit Diagnoses Diagnosis Encounter for annual wellness visit (AWV) in Medicare patient- Primary Hypothyroidism, unspecified type Memory changes Urinary tract infection without hematuria, site unspecified documented in this encounter Historical Medications * This list may reflect changes made after this encounter. nitrofurantoin, macrocrystal-mono hydrate, (MACROBID) 100 mg capsule Take 1 capsule (100 mg total) by mouth 2 (two) times a day. 09/19/2025 added in this encounter Orders Lab Orders Without Results Count Last Ordered D ate First Ordered Date THYROID STIMULATING HORMONE 1 09/25/2025 documented in this encounter Additional Health Concerns Assessment Noted Time A fall risk assessment has been complete d for the patient 09/25/2025 3:38 PM EST documented as of this encounter Care Teams Tooth Cutter Clutch Relationship Specialty Start Date End Date Christina Alcala MD [address] [place] [address] PCP - General Internal Medicine 11/07/20 documented as of this encounter
--- OUTSIDE RECORDS SUMMARY | 2025-09-25 14:55 | XMS_ITS | Encounter Summary ---
Author Organization [facility] Address [address] [place] [address] Care Team Providers Care [place] Name Role Phone Christina Alcala MD Primary Care Provider [phone] Encounter Details Date Type Department Care Team (Late st Contact Info) Description 09/25/2025 2:55 PM EST Lab Draw Station [address] [address] Hypothyroidism, unspecified type; Memory changes; Vitamin D deficiency; Postablative hypothyroidism Social History Tobacco Use Types Packs/Day Years Used Date Smoking Tobacco: Never Smokeless Tobacco: Never Alcohol Use Standard Drinks/Week [...] care for your loved ones. For example, child and adolescent psychologist or elderly care for an older adult? [...] on file documented as of this encounter Procedures Procedure Name Priority Date/Time Associated Diagnosis Comments URINALYSIS WITH REFLEX MICROSCOPIC AND CULTURE Routine 09/25/2025 3:04 PM EST Memory changes MO URINE CULTURE TUBE Routine 09/25/20 3:04 PM EST Memory changes THYROID STIMULATING HORMONE WITH REFLEX TO FREE T4 AND FREE T3 Routine 09/25/2025 3:04 PM EST Postablative hypothyroidism FREE THYROXINE WITH REFLEX TO FREE TRIIODOTHYRONINE Routine 09/25/2025 3:04 PM EST Postablative hypothyroidism CBC WITH AUTO DIFFERENTIAL Routine 09/25/2025 3:04 PM EST Memory changes VITAMIN D 25 HYDROXY Routine 09/25/2025 3:04 PM EST Vitamin D deficiency URINALYSIS WITH REFLEX MICROSCOPIC AND CULTURE Routine 09/25/2025 3:04 PM EST Memory changes CBC AND DIFFERENTIAL Routine 09/25/2025 3:04 PM EST Memory changes CULTURE URINE Routine 09/25/2025 3:04 PM EST Memory changes TRIIODOTHYRONINE FREE Routine 09/25/2025 3:04 PM EST Postablative hypothyroidism COMPREHENSIVE METABOLIC PANEL Routine 09/25/2025 3:04 PM EST Memory changes documented in this encounter Results * (ABNORMAL) Triiodothyronine free (09/25/2025 3:04 PM EST) T3, Free 157(L) 230 - 420 pcg/dL 09/25/2025 6:[address] [facility] Blood Venous blood specimen / Unknown Venipuncture / Unknown 09/25/2025 3:04 PM EST 09/25/2025 3:04 PM EST us Christina Alcala MD LAB BLOOD ORDERABLES Final Resul t [facility] [address] [place] [address], [place] [phone] * Free thyroxine with reflex to free triiodothyronine (09/25/2025 3:04 PM EST) Free T4 1.23 0.70 - 1.80 ng/dL 09/25/2025 5:[address] [facility] Blood Venous blood specimen / Unknown Venipuncture / Unknown 09/25/2025 3:04 PM EST 09/25/2025 3:04 PM EST us Christina Alcala MD LAB BLOOD ORDERABLES Final Resul t Performing Organization Address City/[facility]/ZIP Co de Phone Number [facility] [address] [place] [address], [place] [phone] * Culture urine (09/25/2025 3:04 PM EST) Pathologist [facility] Culture, Urine 10,000-49,000 CFU/mL Mixed urogenital rajinder, no uropathogens present. Suggest repeat specimen if clinically indicated. 09/27/2025 10:[address] [facility] Urine Urine specimen obtained by clean catch procedure / Unknown Non-blood Collection / Unknown 09/25/2025 3:04 PM EST 09/25/2025 5:13 PM EST C[facility] MICROBIOLOGY - GENERAL OR DERABLES Final Result Performing Organization Address [facility]/ZIP Co de Phone Number [facility] [address] [place] [address], [place] [phone] * (ABNORMAL) CBC auto differential (09/25/2025 3:04 PM EST) [facility] [address] WBC 9.5 4.8 - 10.8 K/mcL LAB HEMETOLOGY METHOD 09/25/2025 4:32 PM [facility] RBC 4.00 3.80 - 4.80 M/mcL LAB HEMETOLOGY METHOD 09/25/2025 4:32 PM [facility] Hemoglobin 12.9 11.5 - 16.0 g/dL LAB HEMETOLOGY METHOD 09/25/2025 4:32 PM [facility] Hematocrit 38.0 35.0 - 47.0 % LAB HEMETOLOGY METHOD 09/25/2025 4:32 PM [facility] MCV 94.3 79.0 - 98.0 FL LAB HEMETOLOGY METHOD 09/25/2025 4:32 PM [facility] MCH 32.0 27.0 - 32.0 pcg LAB HEMETOLOGY METHOD 09/25/2025 4:32 PM [facility] MCHC 33.9 32.0 - 37.0 g/dL LAB HEMETOLOGY METHOD 09/25/2025 4:32 PM [facility] RDW 14.1 11.0 - 15.0 % LAB HEMETOLOGY METHOD 09/25/2025 4:32 PM [facility] Platelets 205 130 - 400 K/mcL LAB HEMETOLOGY METHOD 09/25/2025 4:32 PM [facility] MPV 10.1 7.0 - 11.0 FL LAB HEMETOLOGY METHOD 09/25/2025 4:32 PM [facility] NRBC 0.0 <1.0 % LAB HEMETOLOGY METHOD 09/25/2025 4:32 PM [facility] NRBC Absolute 0.00 <0.10 K/mcL LAB HEMETOLOGY METHOD 09/25/2025 4:32 PM [facility] Neutrophils Relative 77.8 % LAB HEMETOLOGY METHOD 09/25/2025 4:32 PM [facility] Lymphocytes Relative 12.4 % LAB HEMETOLOGY METHOD 09/25/2025 4:32 PM [facility] Monocytes Relative 8.1 % LAB HEMETOLOGY METHOD 09/25/2025 4:32 PM [facility] Eosinophils Relative 0.6 % LAB HEMETOLOGY METHOD 09/25/2025 4:32 PM [facility] Basophils Relative 0.5 % LAB HEMETOLOGY METHOD 09/25/2025 4:32 PM [facility] Immature Granulocytes Relative 0.6 % LAB HEMETOLOGY METHOD 09/25/2025 4:32 PM [facility] Neutrophils Absolute 7.40(H) 1.50 - 7.00 K/mcL LAB HEMETOLOGY METHOD 09/25/2025 4:[address] [facility] Lymphocytes Absolute 1.18 1.00 - 5.00 K/mcL LAB HEMETOLOGY METHOD 09/25/2025 4:32 PM [facility] Monocytes Absolute 0.77 0.20 - 1.00 K/[facility] HEMETOLOGY METHOD 09/25/2025 4:[address] [facility] Eosinophils Absolute 0.06 0.00 - 0.50 K/[facility] LAB HEMETOLOGY METHOD 09/25/2025 4:[address] [facility] Basophils Absolute 0.05 0.00 - 0.20 K/mcL LAB HEMETOLOGY METHOD 09/25/2025 4:32 PM [facility] Immature Granulocytes Absolute 0.06(H) 0.00 - 0.03 K/[facility] LAB HEMETOLOGY METHOD 09/25/2025 4:32 PM [facility] Blood Venous blood specimen / Unknown Venipuncture / Unknown 09/25/2025 3:04 PM EST 09/25/2025 3:04 PM EST Cathy NGUYEN LAB BLOOD ORDERABLES Final Re sult [facility] [address] [place] [address], * Mo urine culture tube (09/25/2025 3:04 PM EST) Extra Tube Hold for add-ons. 09/25/2025 5:01 PM [facility] Comment:Auto resulted. Urine Urine specimen obtained by clean catch procedure / Unknown Non-blood Collection / Unknown 09/25/2025 3:04 PM EST 09/25/2025 3:04 PM EST us Cathy NGUYEN LAB URINE ORDERABLES Final Re sult [facility] [address] [place] [address], [place] [phone] * (ABNORMAL) Urinalysis with reflex microscopic and culture (09/25/2025 3:04 PM EST) Specific [place] Urine 1.016 1.003 - 1.030 LAB URINALYSIS - AUTOMATED METHOD 09/25/2025 5:13 PM [facility] pH, Urine 6.5 5.0 - 8.0 pH LAB URINALYSIS - AUTOMATED METHOD 09/25/2025 5:13 PM [facility] Leukocytes, Urine Trace(A) Negative LAB URINALYSIS - AUTOMATED METHOD 09/25/2025 5:13 PM [facility] Nitrite, Urine Negative Negative LAB URINALYSIS - AUTOMATED METHOD 09/25/2025 5:13 PM [facility] Protein, Urine Trace <=Trace mg/dL LAB URINALYSIS - AUTOMATED METHOD 09/25/2025 5:13 PM [facility] Glucose, Urine Negative Negative mg/dL LAB URINALYSIS - AUTOMATED METHOD 09/25/2025 5:13 PM [facility] Ketones, Urine 15(A) Negative mg/dL LAB URINALYSIS - AUTOMATED METHOD 09/25/2025 5:13 PM [facility] Urobilinogen, Urine 1.0 0.2 - 1.0 mg/dL LAB URINALYSIS - AUTOMATED METHOD 09/25/2025 5:13 PM [facility] Bilirubin, Urine Negative Negative LAB URINALYSIS - AUTOMATED METHOD 09/25/2025 5:13 PM [facility] Blood, Urine Negative Negative LAB URINALYSIS - AUTOMATED METHOD 09/25/2025 5:13 PM [facility] RBC, Urine 4 0 - 4 /HPF 09/25/2025 5:[address] [facility] WBC, Urine 20(H) 0 - 4 /HPF 09/25/2025 5:[address] [facility] Squamous Epithelial, Urine 10 0 - 60 /LPF 09/25/2025 5:[address] [facility] Bacteria, Urine Negative Negative /HPF 09/25/2025 5:[address] [facility] Hyaline Casts, Urine 3 0 - 3 /LPF 09/25/2025 5:[address] [facility] Urine Urine specimen obtained by clean catch procedure / Unknown Non-blood Collection / Unknown 09/25/2025 3:04 PM EST 09/25/2025 3:04 PM EST us Cathy NGUYEN LAB URINE ORDERABLES Final Re sult Performing Organization Address City/[facility]/ZIP Co de Phone Number [facility] [address] [place] [address], [place] [phone] * (ABNORMAL) Thyroid stimulating hormone with reflex to free t4 and free t3 (09/25/2025 3:04 PM EST) [facility] [address] TSH 51.05(H) 0.40 - 4.00 mcIU/mL 09/25/2025 5:[address] [facility] Blood Venous blood specimen / Unknown Venipuncture / Unknown 09/25/2025 3:04 PM EST 09/25/2025 3:04 PM EST us Christina Alcala MD LAB BLOOD ORDERABLES Final Resul t [facility] [address] [place] [address], [place] [phone] * (ABNORMAL) Vitamin D 25 hydroxy (09/25/2025 3:04 PM EST) Vit D, 25-Hydroxy 10.6(L) 30.0 - 80.0 ng/mL 09/25/2025 5:15 PM [facility] Blood Venous blood specimen / Unknown Venipuncture / Unknown 09/25/2025 3:04 PM EST 09/25/2025 3:04 PM EST us Christina Alcala MD LAB BLOOD ORDERABLES Final Resul t [facility] [address] [place] [address], [place] [phone] * (ABNORMAL) Comprehensive metabolic panel (09/25/2025 3:04 PM EST) Sodium 130(L) 133 - 145 mmol/L 09/25/2025 5:17 PM [facility] Potassium 3.2(L) 3.5 - 5.5 mmol/L 09/25/2025 5:17 PM [facility] Chloride 92(L) 96 - 110 mmol/L 09/25/2025 5:17 PM [facility] CO2 27 21 - 32 mmol/L 09/25/2025 5:17 PM [facility] Anion Gap 11 3 - 11 09/25/2025 5:17 PM [facility] Glucose 89 70 - 100 mg/dL 09/25/2025 5:17 PM [facility] BUN 15 5 - 25 mg/dL 09/25/2025 5:17 PM [facility] Creatinine 0.88 0.50 - 1.10 mg/dL 09/25/2025 5:17 PM [facility] eGFR 66 >=60 mL/min/1. 73m2 09/25/2025 5:17 PM [facility] Comment:Calculation based on the Chronic Kidney Disease Epidemiology Collaboration (CKD-EPI) equation refit without adjustment for race. BUN/Creatinine Ratio 17.0 09/25/2025 5:17 PM [facility] Calcium 8.7 8.5 - 10.5 mg/dL 09/25/2025 5:17 PM [facility] AST (SGOT) 43(H) 10 - 42 unit/L 09/25/2025 5:17 PM [facility] ALT (SGPT) 33 10 - 60 unit/L 09/25/2025 5:17 PM [facility] Alkaline Phosphatase 75 42 - 121 unit/L 09/25/2025 5:17 PM [facility] Total Protein 6.8 6.0 - 8.0 g/dL 09/25/2025 5:17 PM [facility] Albumin 4.2 3.2 - 5.0 g/dL 09/25/2025 5:17 PM [facility] Total Bilirubin 0.8 0.0 - 1.4 mg/dL 09/25/2025 5:17 PM [facility] Blood Venous blood specimen / Unknown Venipuncture / Unknown 09/25/2025 3:04 PM EST 09/25/2025 3:04 PM EST us Cathy NGUYEN LAB BLOOD ORDERABLES Final Re sult [facility] [address] [place] [address], documented in this encounter Visit Diagnoses Diagnosis Hypothyroidism, unspecified type Memory changes Vitamin D deficiency Postablative hypothyroidism Other postablative hypothyroidism documented in this encounter Additional Health Concerns Assessment Noted Time A fall risk assessment has been complete d for the patient 09/25/2025 3:38 PM EST documented as of this encounter Care Teams [place] Relationship Specialty Start Date End Date Christina Alcala MD [address] [place], [place] PCP - General Internal Medicine 11/07/20 documented as of this encounter
[2025-09-27 13:26] VITALS: BP 208/113; PULSE 70; RESP 18; TEMP 36.6; O2SAT 99; BMI 19.0
--- NOTE | 2025-09-27 13:28 | ECG_ITS ---
Test Reason : AMS Blood Pressure : */* mmHG Vent. Rate : 65 BPM Atrial Rate : 65 BPM P-R Int : 114 ms QRS Dur : 74 ms QT Int : 426 ms P-R-T Axes : 35 15 63 degrees QTcB Int : 443 ms Sinus rhythm with Premature atrial complexes Nonspecific ST and T wave abnormality Abnormal ECG When compared with ECG of 19-Feb-2025 20:11, No significant change was found Referred By: Leroy Villavicencio Electronically Signed By: ANIYA [email or web address]
--- NOTE | 2025-09-27 13:29 | ED_ITS ---
HPI - General Adult General Chief complaint: Behavioral Concerns Stated complaint: crisis Time Seen by Provider: 09/27/25 14:01 Source: patient, family (Both of the patient's sons are at bedside, [id number]), RN notes reviewed and old records reviewed Mode of arrival: ambulatory Limitations: no limitations History of Present Illness ED Provider: GARLAND Gilman HPI narrative: 80-year-old female with medical history of lung cancer, hypothyroidism, mild cognitive impairment, presents to the ED accompanied by her 2 sons and [id number] due to increased confusion, and agitation. The patients son states she had a recent UTI and finished her antibiotic therapy 2 days ago on . Patient's son state that they thought her agitation and confusion would improve however she has finished her antibiotic and her mental status has gotten worse. Patient's son states that they have had to go over to her house daily as she is not caring for herself, not getting out of bed, not eating. Patient's son states that last month the patient was coming over for dinner once or twice a week, and driving to [place] part of her routine however she is not doing those things anymore. Patient's son stated while they were talking today she stated she wanted to kill herself and was making gestures to cut her wrists. Patient states that she is angry with her sons, and that this is all ?bullshit? and she feels fine. Denies SI, HI, AH, VH chest pain, shortness of breath, fevers, abdominal pain, nausea, vomiting MD complaint: increased agitation, confusion Related Data Home Medications ?Medication ?Instructions ?Recorded ?Confirmed citalopram 20 mg tablet 20 mg PO DAILY 09/27/2509/07 levothyroxine 88 mcg tablet 88 mcg PO QAM 09/27/25 osimertinib 40 mg tablet (Tagrisso) 40 mg PO DAILY 09/27/25 vitamin D3 500 unit-folic acid 1 2 tab PO DAILY 09/27/25 mg tablet Allergies Allergy/AdvReac Type Severity Reaction Status Date / Time Penicillins AdvReac Severe Anaphylaxis Verified 09/27/25 13:29 Review of Systems 2 Review of Systems: Yes all other systems are reviewed and are negative PMFSH Past Medical History Medical History (Updated 09/30/25 @ 08:26 by WENDY Mariscal) Lung cancer Social History Social History Unable to assess alcohol history related to: Unknown Alcohol intake: never Patient Tobacco Use Status: Never used Tobacco Smoked in Last 30 Days: No Use of substances other than those prescribed or required for medical reasons: No Advance Directives: Yes Advance Directives on File: Yes Advance Directives Date on File: 09/27/25 Physical Exam ED Vital Signs: Vital Signs - 24 hr 09/29/25 13:38 09/30/25 00:24 09/30/25 08:13 Temperature 97.9 F 97.8 F Pulse Rate 64 58 Respiratory Rate 18 16 Blood Pressure 127/76 143/87 H 148/86 H Pulse Oximetry 97 97 Oxygen Delivery Method Room Air Room Air BMI result Body Mass Index 19.0 GENERAL APPEARANCE: ?AxOx4, agitated, no acute distress. HEENT: ?NC, AT. MMM. EOMI, clear conjunctiva, oropharynx clear. NECK: ?Supple without lymphadenopathy.? No stiffness or restricted ROM. HEART:? Normal rate and regular rhythm, normal S1/S2, no m/r/g LUNGS:? CTAB, moving air well. No crackles or wheezes are heard. ABDOMEN: ?Soft, nontender, nondistended with good bowel sounds heard. BACK: No CVAT, no obvious deformity. EXTREMITIES: ?Without cyanosis, clubbing or edema. NEUROLOGICAL: ?Grossly nonfocal. Alert and oriented, moving all 4 extremities. Observed to ambulate with normal gait. Skin: ?Warm and dry without any rash. PSYCH: Patient is extremely argumentative, and agitated, patient is difficult to have a conversation with as she denies medical diagnosis of dementia, and increased agitation and confusion Course Course Course Narrative: RME, this is a rapid medical exam performed by Farzad Villavicencio please refer to primary provider for complete H&P- 80-year-old female presents for evaluation of agitation and confusion. She was seen here on the and treated for a UTI. The patient's son reports that she seems to have improved slightly in the physical aspect, she has more strength but seems agitated and confused. She lives alone and family does not feel that she is safe at home. Plan for repeat labs Reevaluation(s) Reevaluation #1: 2:02 PM 09/28/2025 (Stephany Torres CODING QUALITY ANALYST): Patient evaluated by psychiatry and it has been deemed the patient does not have capacity to make her own medical decisions. Son Sim/HCP updated on this determination via telephone. Attempt also made to determine code status at this time, however, Sim states he would like to discuss this with his brother, Per, prior to making any decisions. States they will return to the hospital around 1630. Reevaluation #2: Time: 8:30 a.m. Date: 09/29/2025 Provider: Go Gilman PA-C Physician observation continued. No acute events reported by nursing overnight. No current complaints. Patient had psych evaluation, does not have capacity. Awaiting PT and OT evaluation. Will continue to monitor as we await disposition. Time: 08:30 Reevaluation #3: 09/30/2025 0825 Niurka Cloud PA-C ---> Observation continues. Case management continues to follow. 09/30/2025 1137 Niurka Cloud PA-C ---> Observation ended at 1137 on 09/30/2025. Observation care revealed the the patient not meet medical necessity for hospitalization. Final disposition discussed with the patient and the patient's son of discharge to [facility] who verbalized understanding and agreement. Medications Administered Generic Name Dose Route Start Last Admin Trade Name Freq PRN Reason Stop Dose Admin Escitalopram Oxalate 10 mg 09/28/25 09:00 09/30/25 08:01 Escitalopram Oxalate 10 Mg Tablet PO 10 mg DAILY ERICA Administration Folic Acid 1 mg 09/28/25 09:00 09/30/25 08:01 Folic Acid 1 Mg Tablet PO 1 mg DAILY ERICA Administration Levothyroxine Sodium 88 mcg 09/28/25 06:00 09/30/25 05:49 Levothyroxine Sodium 88 Mcg Tablet PO 88 mcg DAILY@0600 ERICA Administration Non-Formulary Medication 40 mg 09/27/25 18:00 09/29/25 19:12 Osimertinib [Tagrisso] PO 40 mg DAILY@1800 ERICA Administration Vitamin D 25 mcg 09/28/25 09:00 09/30/25 08:01 Cholecalciferol (Vitamin D3) 25 Mcg Tablet PO 25 mcg DAILY ERICA Administration Discontinued Medications Generic Name Dose Route Start Last Admin Trade Name Isha PRN Reason Stop Dose Admin Levothyroxine Sodium 88 mcg 09/27/25 16:01 09/27/25 16:32 Levothyroxine Sodium 88 Mcg Tablet PO 09/27/25 16:02 88 mcg ONCE ONE Administration Lorazepam 1 mg 09/27/25 18:27 09/27/25 18:47 Lorazepam 1 Mg Tablet PO 09/27/25 18:28 1 mg ONCE ONE Administration Olanzapine 10 mg 09/28/25 13:53 09/28/25 13:56 Olanzapine Odt 10 Mg Tab.Rapdis TRANSLINGU 09/28/25 13:54 10 mg ONCE ONE Administration Medical Decision Making Medical Decision Making [facility] Narrative: 80-year-old female with medical history of lung cancer, hypothyroidism, mild cognitive impairment, presents to the ED accompanied by her 2 sons and gdrfiqzi-[id number]-ted due to increased confusion, and agitation. Patient had UTI recently the family thought was the cause of her mental status change however, finished abx 2 days ago without improvement. Patient's son states that she was seen by her primary care doctor yesterday, and was deemed to have dementia. Patient was making SI statements stating that she wanted to kill herself and making gestures to slit her wrist this morning which prompted the family to bring her in for further evaluation. Patient's family has filed paperwork for healthcare proxy, and they are looking for assisted living facility as they can not provide her care. Labs without leukocytosis/leukopenia, H&H stable, mild hyponatremia of 133, patient asymptomatic, no other electrolyte abnormalities, mild transaminitis with AST of 44, ALT of 37 however this appears to be patient's baseline. UA negative for blood or bacteria in the urine. EKG reveals sinus rhythm with PACs, without significant ST-elevation/depression, patient without chest pain. Patient with recent diagnosis of dementia. Patient needs consult to psychiatry for evaluation of her capacity. Patient to be evaluated by PT/ case management to determine if assisted living is a possibility for her. [facility] at this time and will be evaluated in the morning. Differential Diagnosis Differential Diagnoses: The differential diagnosis associated with the presentation includes Dementia Agitation Psychosis Admission/Observation Consideration of admission/observation: Escalation of care including admission/observation considered Lab Data [facility] Lab Attestation statement: I reviewed the patient's lab results. 09/27/25 13:49 09/27/25 13:49 Labs: Lab Results 09/27/25 Range/Units 13:49 WBC 7.7 (4.8-10.8) X10*3/uL RBC 4.29 (4.20-5.50) X10*6/uL Hgb 14.0 (12.0-16.0) g/dl Hct 40.0 (37.0-47.0) % MCV 93.2 (80.0-98.0) fL MCH 32.6 (27.0-33.0) pg MCHC 35.0 (31.0-35.0) g/dl RDW 14.2 (11.0-16.0) % Plt Count 190 (160-400) X10*3/uL MPV 9.2 L (9.4-12.3) fL Immature Gran % (Auto) 0.4 (0.0-0.4) % Neut % (Auto) 76.4 H (45-73) % Lymph % (Auto) 13.3 L (20-40) % Harrison % (Auto) 8.6 (2-11) % Eos % (Auto) 0.8 (0-4) % Baso % (Auto) 0.5 (0-2) % Lymph # (Auto) 1.0 L (1.2-4.9) X10*3/uL Harrison # (Auto) 0.7 (0.1-1.2) X10*3/uL Eos # (Auto) 0.1 (0.0-0.4) X10*3/uL Baso # (Auto) 0.0 (0.0-0.2) X10*3/uL Abs Immat Gran (auto) 0.03 (0.00-0.03) X10*3/uL Absolute Neuts (auto) 5.9 (2.0-8.3) x10*3/uL Absolute Nucleated RBC 0.000 (0.0-0.012) X10*3/uL Nucleated RBC % (auto) 0.0 (0.0-0.2) /100WBC Sodium 133 L (135-145) mmol/L Potassium 3.5 (3.3-5.1) mmol/L Chloride 98 (96-108) mmol/L Carbon Dioxide 25 (22-29) mmol/L Anion Gap 14 (12-20) BUN 12 (9-16) mg/dL Creatinine 0.71 (0.5-1.4) mg/dL Estim Creat Clear Calc 46.2 Estimated GFR > 60 Random Glucose 114 (60-115) mg/dL Calcium 9.1 (8.4-10.2) mg/dL Total Bilirubin 0.8 (0.0-1.0) mg/dL AST 44 H (5-31) U/L ALT 37 H (0-31) U/L Alkaline Phosphatase 74 (39-117) U/L Total Protein 7.0 (6.5-8.0) g/dL Albumin 4.8 (3.5-5.0) g/dL Lipase 24 (8-78) U/L Urine Color Yellow Urine Appearance Clear Urine pH 7.5 (5.0-9.0) Ur Specific [place] 1.010 (1.005-1.025) Urine Protein Negative (Neg-Trace) mg/dL Urine Glucose (UA) Negative (Negative) mg/dL Urine Ketones Negative (Negative) mg/dL Urine Blood Negative (Negative) Urine Nitrite Negative (Negative) Ur Leukocyte Esterase Negative (Negative) Urine RBC 0-2 (0-2) /HPF Urine WBC 0-5 (0-5) /HPF Ur Squamous Epith Cells 0-2 (0-2) /HPF Urine Bacteria None Seen (None Seen) Hyaline Casts 0-2 (0-2) /LPF Discharge Plan Discharge Clinical Impression: Agitation Patient Disposition: Xfer Other Transfer Details: Back to [facility] Additional Instructions: IF you are prescribed home medications and/or you are taking over the counter medications at home - it is very important you continue to do so as prescribed / directed unless told otherwise by a healthcare provider. Follow up with your primary care provider. Do your best to stay well hydrated and rest. Return to the emergency department immediately if your symptoms worsen or if you develop any numbness, tingling, dizziness, shortness of breath, difficulty breathing, chest pain, blurry vision, loss of vision, nausea, vomiting, abdominal pain, fever, chills, back pain, or any other complaints. Please see the information below about our Patient Portal. If you are not yet enrolled in the [facility] Patient Portal, you will receive an enrollment email invitation following your visit to any [facility] setting. You may also self-enroll in the Patient Portal by visiting our website: [email or web address] The following information is required to access the Patient Portal: - Your [facility] Medical Record Number - Your personal home email address (must match what is in your electronic medical record, Registration staff can assist with this) - Name - Date of Capabilities of the Patient Portal: - Message some providers - View upcoming appointments - Access your health summary, medical history, and visit history - View current conditions and allergies - View procedure and lab results - View your medications, including guidelines, side effects, and precautions - Complete pre-appointment questionnaires requested by your provider - Ready summary reports of your office visits and procedures To access the Patient Portal Mobile Nain, follow these directions: - Search [employer]Learn in the Nain Store or BeThereRewards Store - Download the Nain - Search for [facility] - Enter your login/password Prescriptions: No Action levothyroxine 88 mcg tablet 88 mcg PO QAM citalopram 20 mg tablet 20 mg PO DAILY Tagrisso 40 mg tablet 40 mg PO DAILY vitamin D3-folic acid 500 unit- 1 mg Tablet 2 tab PO DAILY Referrals: Christina Alcala MD [Primary Care Provider, Internal Medicine] Print Language: Turkmen
[2025-09-27 13:59] LABS: MANUAL DIFF FLAG NO
--- OUTSIDE RECORDS SUMMARY | 2025-09-27 13:59 | XMS_ITS | Encounter Summary ---
Author Organization [facility] Address [address] [place] [address] Phone Care Team Providers Care Furniture Repairer Name Role Phone Diomedes Odonnell MD Unavailable Gavi Black MD Unavailable [phone] Luisito Mckeon MD Unavailable Unavailable Luisito Mckeon MD Primary Care Provider Unavail able Adina Mac RN Unavailable [phone] Luciana Brennan RN Unavailable OSVALDO [email or web address] Alonso Pickett MD Unavailable [phone] Cally Tolliver Unavailable Michelle [email or web address] Encounter Details Date Type Department Care Team (Late st Contact Info) Description 04/21/2020 Procedure Pass [facility] Imaging Department, [facility] [place], [place] [address] [place] [address] Social History Tobacco Use Types Packs/Day [...] Simons PA-C * Patient has serious difficulty dressing [...] Entry Date Author No 08/19/2017 7:47 AM EDT Pricilla Simons PA-C documented in this encounter Plan of Treatment Upcoming Encounters Date Type Department Care Team (Late st Contact Info) Description 04/10/2026 8:00 AM EDT Office Visit [facility] Department of Neurology [address] [place] [address] Luann Cruz MBBS [address] [facility] Neurology Dept., 4th [place] [address] [email or web address] documented as of this encounter Visit Diagnoses Not on filedocumented in this encounter Care Teams Furniture Repairer Relationship Specialty Start Date End Date Luisito Mckeon MD PCP - General Endocrinology 10/11/17 Diomedes Odonnell MD [address] [place] [address] [address] [place] [address] [email or web address] Thoracic Surgery 07/11/17 Gavi Black MD [address] [place] [id number] [email or web address] Hematology and Oncology 07/18/17 Luisito Mckeon MD Primary Care Physician Endocrinology 10/02/17 Adina Mac, RN [address] [place] [id number] [email or web address] Primary Infusion Nurse 11/08/17 Luciana Brennan RN [address] [place] [phone] [email or web address] Primary Infusion Nurse 11/08/17 Alonso Pickett MD [address] [place] [address] Dr Fi[address] [place] [phone] Gynecologic Oncology 12/13/18 Cally Tolliver LICSW [address] [place] [address] Dr Fiore [address] [place] [phone] [email or web address] Tube Depatcher Oncology 12/29/21 documented as of this encounter Additional Source Comments The information contained in this document represents components of the legal health record. It is not the complete legal health record.[facility]
--- OUTSIDE RECORDS SUMMARY | 2025-09-27 13:59 | XMS_ITS | Encounter Summary ---
Author Organization [facility] Address [address] [place] [address] Care Team Providers Care Casting Inspector Name Role Phone Christina Alcala MD Primary Care Provider [phone] Reason for Visit * Reason Onset Date Comments VNA 09/24/2025 Encounter Details Date Type Department Care Team (Late st Contact Info) Description 09/24/2025 Telephone Adult Medicine [facility] [address] [place], [place] [phone] Christina Alcala MD [address] [place], [place] Social History Tobacco Use Types Packs/Day Years [...] for your loved ones. For example, child specialist or elderly care for an older adult? [...] living situation? Unrecognized valu e 09/25/2025 Comments Unknown Sex and Gender Information Value Date Recorded Sex Assigned at Not on file Legal Sex Female 5:39 PM EST Gender Identity Not on file Sexual Orientation Not on file documented as of this encounter Progress Notes * Carlitos Coleman LPN - 09/25/2025 8:58 AM EST Talked with son Sim mother doesn't want help no meals on wheels or VNA services he is concerned he is going away for 3 week suggested respite care information will be provided Patient doesn't have a health care proxy or power of trade mark attorney * Carlitos Coleman LPN - 09/24/2025 11:02 AM EST Spoke with Sim his mother was treted for a UTI at [facility] her Cognitive level declined she can't remember what she ate , cries when he try's to leave , afraid to be alone he doesn't know what to do she call him all day long until he comes over he give her her medication feels the antibiotic is not working no change in mental status Son is very overwhelmed he wanted a social worker masters at the visit tomorrow told him we don't have one Advised he call [facility] elder care is now [facility] [phone] suggested he call them for a social worker masters might be time to look into assisted living [facility] [phone] [facility] assisted living has Memory care and respite care [phone] [facility] [phone] a [address] for Mom On line free service * Kamryn Suarez - 09/24/2025 10:20 AM EST Patient call requires triage: SonSim feels his mom is not safe to live alone. Cognitive level has dropped drastically, she can't remember what she ate for breakfast, she tells her son she is afraid to be alone, cries don't leave. Son is requesting a social worker masters to be present in the visit tomorrow, 09/25. Son found 5 months of cancer & thyroid meds that she never took. Son is concerned is the UTI meds not working is this why she is acting this way? Does Dr Alcala receive office notes from Dr Anthony Akhtar. How does he go about setting up assisted documented in this encounter Plan of Treatment Not on file documented as of this encounter Visit Diagnoses Not on filedocumented in this encounter Care Teams Casting Inspector Relationship Specialty Start Date End Date Christina Alcala MD [address] [place] [address] PCP - General Internal Medicine 11/07/20 documented as of this encounter
--- OUTSIDE RECORDS SUMMARY | 2025-09-27 13:59 | XMS_ITS | Encounter Summary ---
Author Organization [facility] Address [address] [place] [address] Phone Care Team Providers Care Scorekeeper Name Role Phone Luisito Mckeon MD Primary Care Provider Unavail able Joy Bermudez MD Unavailable Shagufta Plunkett MD Unavailable [phone] Bry Bartholomew MD Unavailable Unavailable Diomedes Odonnell MD Unavailable Gavi Black MD Unavailable [phone] Diomedes Odonnell MD Unavailable [phone] Unknown, Unknown Primary Care Provider Namrata Herrera RN Unavailable [phone] Kenn Hennessy MD Unavailable [phone] Luisito Mckeon MD Unavailable Unavailable Masha Garcia RN Unavailable [email or web address] Luisito Mckeon MD Primary Care Provider Unavail able Adina Mac RN Unavailable [phone] Luciana Brennan RN Unavailable [email or web address] Alonso Pickett MD Unavailable [phone] Cally Tolliver FAMILY ENGAGEMENT SPECIALIST Unavailable [email or web address] Encounter Details Date Type Department Care Team (Late st Contact Info) Description 07/13/2017 Procedure Pass [facility] Radiology [address] [place] [address] Social History Tobacco Use Types Packs/Day Years Used Date Smoking Tobacco: Never Assessed Comments Unknown Sex and Gender Information Value Date Recorded Sex Assigned at Female 11/13/2017 9:38 AM EST Legal Sex Female 1:09 PM EDT Gender Identity Not on file Sexual Orientation Not on file documented as of this encounter Plan of Treatment Upcoming Encounters Date Type Department Care Team (Late st Contact Info) Description 04/10/2026 8:00 AM EDT Office Visit [facility] Department of Neurology [address] [place] [address] Luann Cruz MBBS [address] [facility] Neurology Dept[address] [place] [address] [email or web address] documented as of this encounter Visit Diagnoses Not on filedocumented in this encounter Care Teams Scorekeeper Relationship Specialty Start Date End Date Luisito Mckeon MD PCP - General Endocrinology 07/07/17 08/31/17 Unknown, Mesha, [address] [place] [address] PCP - General 09/01/17 10/10/17 Luisito Mckeon MD PCP - General Endocrinology 10/11/17 Joy Bermudez MD Thoracic Surgery 07/11/17 10/01/17 Shagufta Plunkett MD [address] [place] [address] 07/11/17 10/01/17 Bry Bartholomew MD [address] [place] [address] Internal Medicine 07/11/17 10/01/17 Diomedes Odonnell MD [address] [place] [address] [email or web address] Thoracic Surgery 07/11/17 Gavi Black MD [address] [place] [id number] [email or web address] Hematology and Oncology 07/18/17 Diomedes Odonnell MD [address] [place] [phone] [email or web address] Referring Physician Thoracic Surgery 07/19/17 10/01/17 Namrata Petty RN [address] [place] [phone] [email or web address] Primary Infusion Nurse 09/15/17 09/18/17 Kenn Hennessy MD [address] [place] [address] Internal Medicine 10/02/17 01/24/18 Luisito Mckeon MD Primary Care Physician Endocrinology 10/02/17 Masha Garcia RN [address] [place] [phone] [email or web address] Primary Infusion Nurse 10/09/17 11/07/17 Adina Mac, RHONA [address] [place] [phone] [email or web address] Primary Infusion Nurse 11/08/17 Luciana Brennan RN [address] [place] [address] [email or web address] Primary Infusion Nurse 11/08/17 Alonso Pickett MD [address] [place] [address] Dr Fiore [address] [place] [address] Gynecologic Oncology 12/13/18 Cally Tolliver LICSW [address] [place] [address] Dr Fiore [address] [place] [address] [email or web address] Director Hr Communications Oncology 12/29/21 documented as of this encounter Additional Source Comments The information contained in this document represents components of the legal health record. It is not the complete legal health record.[facility]
--- OUTSIDE RECORDS SUMMARY | 2025-09-27 13:59 | XMS_ITS | Encounter Summary ---
Author Organization [facility] Address [address] [place] [address] Phone Care Team Providers Care Clerk Analyst Name Role Phone Diomedes Odonnell MD Unavailable [phone] Gavi Black MD Unavailable [phone] Luisito Mckeon MD Unavailable Unavailable Luisito Mckeon MD Primary Care Provider Unavail able Adina Mac RN Unavailable [phone] Luciana Brennan RN Unavailable OSVALDO [email or web address] Alonso Pickett MD Unavailable [phone] Cally Tolliver Unavailable Michelle Tolliver@[email or web address] Encounter Details Date Type Department Care Team (Late st Contact Info) Description 04/21/2020 Procedure Pass [facility] Imaging Department, [facility] [place] [address] [facility], Floor [address]1 [place] [address] Social History Tobacco Use Types Packs/Day [...] Description 04/10/2026 8:00 AM EDT Office Visit [facility] Department of Neurology 60 [place] [address] Luann Cruz MBBS 60 [facility] Neurology Dept., 4th [place] [address] [email or web address] documented as of this encounter Visit Diagnoses Not on filedocumented in this encounter Care Teams Clerk Analyst Relationship Specialty Start Date End Date Luisito Mckeon MD PCP - General Endocrinology 10/11/17 Diomedes Odonnell MD [address] [place] [address] 261 [place] [address] [email or web address]@[facility] Thoracic Surgery 07/11/17 Gavi Black MD [address] [place] [address] [email or web address] Hematology and Oncology 07/18/17 Luisito Mckeon MD Primary Care Physician Endocrinology 10/02/17 Adina Mac, RN [address] [place] [address] [email or web address] 234 beds at [facility] Primary Infusion Nurse 11/08/17 Luciana Brennan RN [address] [place] [address] [email or web address] Primary Infusion Nurse 11/08/17 Alonso Pickett MD [address] [place] [address] Dr [address] [place] [address] Gynecologic Oncology 12/13/18 Cally Tloliver LICSW [address] [place] [address] Dr Fi[address] [place] [address] [email or web address]@[email or web address] Business Assistant Oncology 12/29/21 documented as of this encounter Additional Source Comments The information contained in this document represents components of the legal health record. It is not the complete legal health record.[facility]
--- OUTSIDE RECORDS SUMMARY | 2025-09-27 13:59 | XMS_ITS | Encounter Summary ---
Author Organization [facility] Address [address] [place] [address] Phone Care Team Providers Care Rail Washer Name Role Phone Diomedes Odonnell MD Unavailable Gavi Black MD Unavailable [phone] Luisito Mckeon MD Unavailable Unavailable Luisito Mckeon MD Primary Care Provider Unavail able Adina Mac RN Unavailable [phone] Luciana Brennan RN Unavailable OSVALDO [email or web address] Alonso Pickett MD Unavailable [phone] Cally Tolliver Unavailable Michelle Tolliver@[email or web address] Reason for Visit * Reason Comments Medication Refill Encounter Details Date Type Department Care Team (Late st Contact Info) Description 08/10/2023 Refill [facility] Center for Thoracic Oncology, [facility] [place] [facility] [place] [address] [address] Gavi Black MD [address] [place] [address] [email or web address] Medication Refill Social History Tobacco Use [...] Description 04/10/2026 8:00 AM EDT Office Visit [facility] Department of Neurology 60 [place] [address] Luann Cruz MBBS 60 [facility] Neurology Dept., 4th [place] [address] [email or web address] documented as of this encounter Visit Diagnoses Not on filedocumented in this encounter Care Teams Rail Washer Relationship Specialty Start Date End Date Luisito Mckeon MD PCP - General Endocrinology 10/11/17 Diomedes Odonnell MD [address] [place] [address] YAKELIN@[facility] Thoracic Surgery 07/11/17 Gavi Black MD [address] [place] [address] Matt@[email or web address] Hematology and Oncology 07/18/17 Luisito Mckeon MD Primary Care Physician Endocrinology 10/02/17 Adina Mac, RN 44 [place] [address] [email or web address] Primary Infusion Nurse 11/08/17 Luciana Brennan, RN 44 [place] [address] [email or web address] Primary Infusion Nurse 11/08/17 Alonso Pickett MD [address] [place] [address] Dr Fi[address] [place], [place] [id number] Gynecologic Oncology 12/13/18 Cally Tollievr LICSW [address] [place] [address] [address] [place] [address] [email or web address] .[facility] Gang Vibrator Operator Oncology 12/29/21 documented as of this encounter Additional Source Comments The information contained in this document represents components of the legal health record. It is not the complete legal health record.[facility]
--- OUTSIDE RECORDS SUMMARY | 2025-09-27 13:59 | XMS_ITS | Encounter Summary ---
Author Organization [facility] Address [address] [facility] [address] [place] [address] Phone Care Team Providers Care Blow Down Operator Name Role Phone Luisito Mckeon MD Primary Care Provider Unavail able Joy Bermudez MD Unavailable Shagufta Plunkett MD Unavailable [phone] Bry Bartholomew MD Unavailable Unavailable Diomedes Odonnell MD Unavailable Gavi Black MD Unavailable [phone] Diomedes Odonnell MD Unavailable Unknown, Unknown Primary Care Provider Namrata Herrera RN Unavailable [phone] Kenn Hennessy MD Unavailable [phone] Luisito Mckeon MD Unavailable Unavailable Masha Garcia RN Unavailable [email or web address]@ [facility] Luisito Mckeon MD Primary Care Provider Unavail able Adina Mac RN Unavailable [phone] Luciana Monreal RN Unavailable OSVALDO [email or web address] Alonso Pickett MD Unavailable [phone] Cally TolliverSW Unavailable Michelle Tolliver@[email or web address] Encounter Details Date Type Department Care Team (Late st Contact Info) Description 07/19/2017 Procedure Pass [facility] MR Imaging, Yousif [address] [place] [address] Social History Tobacco Use Types Packs/Day Years [...] Description 04/10/2026 8:00 AM EDT Office Visit [facility] Department of Neurology 60 [place] [address] Luann Cruz MBBS 60 [facility] Neurology Dept., 4th [place] [address] [email or web address] candace documented as of this encounter Visit Diagnoses Not on filedocumented in this encounter Care Teams Blow Down Operator Relationship Specialty Start Date End Date Luisito Mckeon MD PCP - General Endocrinology 07/07/17 08/31/17 Unknown, Mesha, [address] [place] [address] PCP - General 09/01/17 10/10/17 Luisito Mckeon MD PCP - General Endocrinology 10/11/17 Joy Bermudez MD Thoracic Surgery 07/11/17 10/01/17 Shagufta Plunkett MD [address] [place] [address] [place] [address] 07/11/17 10/01/17 Bry Bartholomew MD [address] [place] [address] Internal Medicine 07/11/17 10/01/17 Diomedes Odonnell MD [address] [place] [address] YAKELIN@[facility] Thoracic Surgery 07/11/17 Gavi Black MD [address] [place] [address] [email or web address] Hematology and Oncology 07/18/17 Diomedes Odonnell MD [address] [place] [address] YAKELIN@[facility] Referring Physician Thoracic Surgery 07/19/17 10/01/17 Namrata Petty RN [address] [place] [address] ROBBY@[facility] Primary Infusion Nurse 09/15/17 09/18/17 Kenn Hennessy MD [address] [place] [address] Internal Medicine 10/02/17 01/24/18 Luisito Mckeon MD Primary Care Physician Endocrinology 10/02/17 Masha Garcia, RN [address] [place] [address] [email or web address] Primary Infusion Nurse 10/09/17 11/07/17 Adina Mac, RN [address] [place] [address] [email or web address] Primary Infusion Nurse 11/08/17 Luciana Mnoreal, RN 44 [place] [address] [email or web address] Primary Infusion Nurse 11/08/17 Alonso Pickett MD [address] [place] [address] Dr Fiore [address] [place] [address] Gynecologic Oncology 12/13/18 Cally Tolliver LICSW [address] [place] [address] Dr [address] [place] [address] Alexia@[email or web address] .[facility] Legal Document Assistant Oncology 12/29/21 documented as of this encounter Additional Source Comments The information contained in this document represents components of the legal health record. It is not the complete legal health record.[facility]
--- OUTSIDE RECORDS SUMMARY | 2025-09-27 13:59 | XMS_ITS | Encounter Summary ---
Author Organization [facility] Address [address] [place] [address] Phone Care Team Providers Care Special Deputy Sheriff Name Role Phone Diomedes Odonnell MD Unavailable [phone] Gavi Black MD Unavailable [phone] Luisito Mckeon MD Unavailable Unavailable Luisito Mckeon MD Primary Care Provider Unavail able Adina Mac RN Unavailable [phone] Luciana Brennan RN Unavailable OSVALDO [email or web address] Alonso Pickett MD Unavailable [phone] Cally Tolliver Unavailable Michelle Tolliver@[email or web address] Encounter Details Date Type Department Care Team (Late st Contact Info) Description 01/10/2022 [facility] [place] [facility] [place] [address] [address] Social History Tobacco Use Types [...] Description 04/10/2026 8:00 AM EDT Office Visit [facility] Department of Neurology [address] [place] [address] Luann Cruz MBBS 60 [facility] Neurology Dept., 4th [place] [address] [email or web address] candace documented as of this encounter Visit Diagnoses Not on filedocumented in this encounter Care Teams Special Deputy Sheriff Relationship Specialty Start Date End Date Luisito Mckeon MD PCP - General Endocrinology 10/11/17 Diomedes Odonnell MD [address] [place] [address] 261 [place] [address] YAKELIN@[email or web address] Thoracic Surgery 07/11/17 Gavi Black MD [address] [place] [address] Matt@[email or web address] Hematology and Oncology 07/18/17 Luisito Mckeon MD Primary Care Physician Endocrinology 10/02/17 Adina Mac, RN [address] [place] [address] Osmin@[email or web address] Primary Infusion Nurse 11/08/17 Luciana Brennan RN [address] [place] [address] [email or web address] Primary Infusion Nurse 11/08/17 Alonso Pickett MD [address] [place] [address] Dr Fi[address] [place] [address] Gynecologic Oncology 12/13/18 Cally Tolliver LICSW [address] [place] [address] Dr Fi[address] [place] [address] Alexia@[facility] Door Puller Oncology 12/29/21 documented as of this encounter Additional Source Comments The information contained in this document represents components of the legal health record. It is not the complete legal health record.[facility]
--- OUTSIDE RECORDS SUMMARY | 2025-09-27 13:59 | XMS_ITS | Encounter Summary ---
Author Organization [facility] [place] [address] Care Team Providers Care Agency Development Manager Name Role Phone Christina Alcala MD Primary Care Provider [phone] Reason for Visit * Reason Onset Date Comments vna 09/25/2025 Home care referr al Encounter Details Date Type Department Care Team ([facility] st Contact Info) Description 09/25/2025 Telephone Adult Medicine [address] [phone] Carlitos Coleman LPN Social History Tobacco Use Types Packs/Day Years [...] ed Within the last 3 months, ho ladan many times did you visit the emergency [...] care for your loved ones. For example, early childhood associate teacher or elderly care for an older adult? [...] Notes * Carlitos Coleman LPN - 09/25/2025 4:05 PM EST Home care referral received faxed intake information [phone] Fax confirmation received Case pending documented in this encounter Plan of Treatment Not on file documented as of this encounter Visit Diagnoses Not on filedocumented in this encounter Additional Health Concerns Assessment Noted Time A fall risk assessment has been complete d for the patient 09/25/2025 3:38 PM EST documented as of this encounter Care Teams Agency Development Manager Relationship Specialty Start Date End Date Christina Alcala MD [address] [place] [address] PCP - General Internal Medicine 11/07/20 documented as of this encounter
--- OUTSIDE RECORDS SUMMARY | 2025-09-27 13:59 | XMS_ITS | Encounter Summary ---
Author Organization [facility] Address [address] [facility] [address] [place] [address] Phone Care Team Providers Care Bulb Sorter Name Role Phone Luisito Mckeon MD Primary Care Provider Unavail able Joy Bermudez MD Unavailable Shagufta Plunkett MD Unavailable [phone] Bry Bartholomew MD Unavailable Unavailable Diomedes Odonnell MD Unavailable Gavi Black MD Unavailable [phone] Diomedes Oodnnell MD Unavailable Unknown, Unknown Primary Care Provider Namrata Herrera RN Unavailable [phone] Kenn Hennessy MD Unavailable [phone] Luisito Mckeon MD Unavailable Unavailable Masha Garcia RN Unavailable edward@ [email or web address] Luisito Mckeon MD Primary Care Provider Unavail able Adina Mac RN Unavailable [phone] Luciana Brennan RN Unavailable OSVALDO [email or web address] Alonso Pickett MD Unavailable [phone] Cally Tolliver DOT ETCHER APPRENTICE Unavailable CallyCailin [email or web address] Encounter Details Date Type Department Care Team (Late st Contact Info) Description 07/13/2017 Procedure Pass [facility] Radiology 75 [place] [address] Social History Tobacco Use Types Packs/Day Years [...] Description 04/10/2026 8:00 AM EDT Office Visit [facility] Department of Neurology [address] [place] [address] Luann Cruz MBBS 60 [facility] Neurology Dept., 4th [place] [address] [email or web address] du documented as of this encounter Visit Diagnoses Not on filedocumented in this encounter Care Teams Bulb Sorter Relationship Specialty Start Date End Date Luisito Mckeon MD PCP - General Endocrinology 07/07/17 08/31/17 Unknown, Mesha, [address] [place] [address] PCP - General 09/01/17 10/10/17 Luisito Mckeon MD PCP - General Endocrinology 10/11/17 Joy Bermudez MD Thoracic Surgery 07/11/17 10/01/17 Shagufta Plunkett MD [address] [place] [address] 07/11/17 10/01/17 Bry Bartholomew MD [address] [place] [address] Internal Medicine 07/11/17 10/01/17 Diomedes Odonnell MD [address] [place] [address] YAKELIN@[facility] Thoracic Surgery 07/11/17 Gavi Black MD [address] [place] [address] [email or web address] include 234 beds at [facility] Hematology and Oncology 07/18/17 Diomedes Odonnell MD [address] [place] [address] YAKELIN@[facility] Referring Physician Thoracic Surgery 07/19/17 10/01/17 Namrata Petty RN [address] [place] [address] ROBBY@[facility] Primary Infusion Nurse 09/15/17 09/18/17 Kenn Hennessy MD [address] [place] [address] Internal Medicine 10/02/17 01/24/18 Luisito Mckeon MD Primary Care Physician Endocrinology 10/02/17 Masha Garcia RN [address] [place] [address] [email or web address] Primary Infusion Nurse 10/09/17 11/07/17 Adina Mac, RHONA [address] [place] [address] Osmin@[email or web address] Primary Infusion Nurse 11/08/17 Luciana Brennan RN [address] [place] [address] XAVIER@[facility] Primary Infusion Nurse 11/08/17 Alonso Pickett MD [address] [place] [address] Dr Fiore [address] [place] [address] Gynecologic Oncology 12/13/18 Cally Tolliver LICSW [address] [place] [address] Dr Fiore [address] [place] [address] Alexia@[email or web address] .[facility] Investigator Internal Revenue Oncology 12/29/21 documented as of this encounter Additional Source Comments The information contained in this document represents components of the legal health record. It is not the complete legal health record.[facility]
--- OUTSIDE RECORDS SUMMARY | 2025-09-27 13:59 | XMS_ITS | Encounter Summary ---
Author Organization [facility] Address [address] [place] [address] Care Team Providers Care Box Builder Name Role Phone Christina Alcala MD Primary Care Provider [phone] Reason for Visit * Reason Onset Date Comments Results 09/26/2025 Encounter Details Date Type Department Care Team (Late st Contact Info) Description 09/26/2025 Results Follow-Up Adult Medicine [facility] [address] [place], [place] [phone] Christina Alcala MD [address] [place], [place] Social History Tobacco Use Types Packs/Day [...] care for your loved ones. For example, exceptional children's teacher or elderly care for an older [...] as of this encounter Progress Notes * Leroy Daniel - 09/26/2025 1:14 PM EST Please advise as patient is calling documented in this encounter Plan of Treatment Scheduled Orders Name Type Priority Associated Diagnoses Orde r Schedule Basic metabolic panel Lab Routine Vitamin D deficiency Postablative hypothyroidism Memory changes Expected: 11/14/2025, Expires: 09/26/2026 Thyroid stimulating hormone Lab Routine Vitamin D deficiency Postablative hypothyroidism Memory changes Expected: 11/14/2025, Expires: 09/26/2026 documented as of this encounter Visit Diagnoses Diagnosis Vitamin D deficiency- Primary 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
--- OUTSIDE RECORDS SUMMARY | 2025-09-27 13:59 | XMS_ITS | Encounter Summary ---
Author Organization [facility] Address [address] [facility] [address] [facility] [address] [place] [address] Phone Care Team Providers Care Wrestling Coach Name Role Phone Diomedes Odonnell MD Unavailable Gavi Black MD Unavailable [phone] Luisito Mckeon MD Unavailable Unavailable Luisito Mckeon MD Primary Care Provider Unavail able Adina Mac RN Unavailable [phone] Luciana Brennan RN Unavailable OSVALDO [email or web address] Alonso Pickett MD Unavailable [phone] Cally Tolliver Unavailable Michelle [email or web address] Encounter Details Date Type Department Care Team (Late st Contact Info) Description 05/21/2020 Procedure Pass [facility] Imaging Department, [facility] [place] [address] [facility], Floor [address]1 [place] [address] Social History Tobacco Use Types [...] Description 04/10/2026 8:00 AM EDT Office [facility] Department of Neurology 60 [place] [address] Luann Cruz MBBS 60 [facility] Neurology Dept., 4th [place] [address] [email or web address]. candace documented as of this encounter Visit Diagnoses Not on filedocumented in this encounter Care Teams Wrestling Coach Relationship Specialty Start Date End Date Luisito Mckeon MD PCP - General Endocrinology 10/11/17 Diomedes Odonnell MD [address] [place] [address] 261 [place] [address] YAKELIN@[facility] Thoracic Surgery 07/11/17 Gavi Black MD [address] [place] [address] [email or web address] Hematology and Oncology 07/18/17 Luisito Mckeon MD Primary Care Physician Endocrinology 10/02/17 Adina Mac, RN [address] [place] [address] [email or web address] Primary Infusion Nurse 11/08/17 Luciana Brennan RN [address] [place] [address] [email or web address]@[facility] Primary Infusion Nurse 11/08/17 Alonso Pickett MD [address] [place] [address] Dr Fiore [address] [place] [address] Gynecologic Oncology 12/13/18 Cally Tolliver LICSW [address] [place] [address] Dr Fiore [address] [place] [address] Alexia@[email or web address] Fur Puller Oncology 12/29/21 documented as of this encounter Additional Source Comments The information contained in this document represents components of the legal health record. It is not the complete legal health record.[facility]
--- OUTSIDE RECORDS SUMMARY | 2025-09-27 13:59 | XMS_ITS | Encounter Summary ---
Author Organization [facility] Address [address] [facility] [address] [place] [address] Phone Care Team Providers Care Obstetrics Technician Name Role Phone Diomedes Odonnell MD Unavailable [phone] Gavi Black MD Unavailable [phone] Luisito Mckeon MD Unavailable Unavailable Luisito Mckeon MD Primary Care Provider Unavail able Adina Mac RN Unavailable [phone] Luciana Brennan RN Unavailable OSVALDO [email or web address].[facility] Alonso Pickett MD Unavailable [phone] Cally Tolliver Unavailable Michelle Tolliver@[email or web address] Encounter Details Date Type Department Care Team (Late st Contact Info) Description 05/05/2023 Procedure Pass [facility] [place], [place] [address] [address] Social History Tobacco Use Types Packs/Day Years [...] Description 04/10/2026 8:00 AM EDT Office [facility] Department of Neurology [address] [place] [address] Luann Cruz MBBS 60 [facility] Neurology Dept., 4th [place] [address] [email or web address]@[facility] candace documented as of this encounter Visit Diagnoses Not on filedocumented in this encounter Care Teams Obstetrics Technician Relationship Specialty Start Date End Date Luisito Mckeon MD PCP - General Endocrinology 10/11/17 Diomedes Odonnell MD [address] [place] [address] 261 [place] [address] YAKELIN@[facility] Thoracic Surgery 07/11/17 Gavi Black MD [address] [place] [address] Matt@[email or web address] Hematology and Oncology 07/18/17 Luisito Mckeon MD Primary Care Physician Endocrinology 10/02/17 Adnia Mac, RN 44 [place] [address] Osmin@[facility] Primary Infusion Nurse 11/08/17 Luciana Brennan, RN 44 [place] [address] XAVIER@[facility] Primary Infusion Nurse 11/08/17 Alonso Pickett MD [address] [place] [address] Dr Fi[address] [place] [address] Gynecologic Oncology 12/13/18 Cally Tolliver LICSW [address] [place] [address] Dr Fiore [address] [place] [address] Alexia@[email or web address] Pump And Still Operator Oncology 12/29/21 documented as of this encounter Additional Source Comments The information contained in this document represents components of the legal health record. It is not the complete legal health record.[facility]
--- OUTSIDE RECORDS SUMMARY | 2025-09-27 13:59 | XMS_ITS | Encounter Summary ---
Author Organization [facility] Address [address] [facility] [address] [place] [address] Phone Care Team Providers Care Application Development Project Manager Name Role Phone Diomedes Odonnell MD Unavailable Gavi Black MD Unavailable [phone] Luisito Mckeon MD Unavailable Unavailable Luisito Mckeon MD Primary Care Provider Unavail able Adina Mac RN Unavailable [phone] Luciana Brennan RN Unavailable OSVALDO BRENNAN@[facility].[email or web address] Alonso Pickett MD Unavailable [phone] Cally Tolliver Unavailable Michelle Tolliver@[facility].[place].[facility] Encounter Details Date Type Department Care Team (Late st Contact Info) Description 05/21/2020 Procedure Pass [facility], [facility] [place], [place] [address] [facility], Floor [address]1 [place] [address] Social History Tobacco Use Types Packs/Day [...] Description 04/10/2026 8:00 AM EDT Office [facility] Department of Neurology [address] [place] [address] Luann Cruz MBBS 60 [facility] Neurology Dept., 4th [place] [address] [email or web address]. candace documented as of this encounter Visit Diagnoses Not on filedocumented in this encounter Care Teams Application Development Project Manager Relationship Specialty Start Date End Date Luisito Mckeon MD PCP - General Endocrinology 10/11/17 Diomedes Odonnell MD [address] [place] [address] 261 [place] [address] YAKELIN@[facility] Thoracic Surgery 07/11/17 Gavi Black MD [address] [place] [address] Matt@[email or web address] Hematology and Oncology 07/18/17 Luisito Mckeon MD Primary Care Physician Endocrinology 10/02/17 Adina Mac, RN [address] [place] [address] Osmin@[email or web address] Primary Infusion Nurse 11/08/17 Luciana Brennan RN [address] [place] [address] XAVIER@[facility] Primary Infusion Nurse 11/08/17 Alonso Pickett MD [address] [place] [address] Dr [address] [place] [address] Gynecologic Oncology 12/13/18 Cally Tolliver LICSW [address] [place] [address] Dr Fi[address] [place] [address] Alexia@[facility] Sheet Mill Supervisor Oncology 12/29/21 documented as of this encounter Additional Source Comments The information contained in this document represents components of the legal health record. It is not the complete legal health record.[facility]
[2025-09-27 14:00] LABS: Hematocrit 40.0 % (37.0-47.0); Hemoglobin 14.0 g/dl (12.0-16.0); Imm Gran Abs Auto 0.03 X10*3/uL (0.00-0.03); Imm Gran Pct Auto 0.4 % (0.0-0.4); Lymphocytes Absolute Auto 1.0 X10*3/uL (1.2-4.9); Mean Corpuscular HGB Conc 35.0 g/dl (31.0-35.0); Mean Corpuscular Hemoglobin 32.6 pg (27.0-33.0); Mean Corpuscular Volume 93.2 fL (80.0-98.0); NRBC Abs Auto 0.000 X10*3/uL (0.0-0.012); NRBC Pct Auto 0.0 /100WBC (0.0-0.2); Platelet Count 190 X10*3/uL (160-400); Red Blood Count 4.29 X10*6/uL (4.20-5.50); White Blood Count 7.7 X10*3/uL (4.8-10.8)
--- OUTSIDE RECORDS SUMMARY | 2025-09-27 14:00 | XMS_ITS | Encounter Summary ---
Author Organization [facility] Address [address] [facility] [address] [place] [address] Phone Care Team Providers Care Hospital Recruiter Name Role Phone Diomedes Odonnell MD Unavailable Gavi Black MD Unavailable [phone] Luisito Mckeon MD Unavailable Unavailable Luisito Mckeon MD Primary Care Provider Unavail able Adina Mac RN Unavailable [phone] Luciana Brennan RN Unavailable OSVALDO BRENNAN@[email or web address].[facility] Alonso Pickett MD Unavailable [phone] Cally Tolliver Unavailable Michelle Tolliver@[facility] Encounter Details Date Type Department Care Team (Late st Contact Info) Description 06/19/2024 Procedure Pass [facility] [place] [address] [address] Social History Tobacco Use Types Packs/Day Years [...] Description 04/10/2026 8:00 AM EDT Office Visit [facility] Department of Neurology [address] [place] [address] Luann Cruz MBBS 60 [facility] Neurology Dept., 4th [place] [address] [email or web address]@[facility] candace documented as of this encounter Visit Diagnoses Not on filedocumented in this encounter Care Teams Hospital Recruiter Relationship Specialty Start Date End Date Luisito Mckeon MD PCP - General Endocrinology 10/11/17 Diomedes Odonnell MD [address] [place] [address] 261 [place] [address] YAKELIN@[facility] Thoracic Surgery 07/11/17 Gavi Black MD [address] [place] [address] Matt@[email or web address] Hematology and Oncology 07/18/17 Luisito Mckeon MD Primary Care Physician Endocrinology 10/02/17 Adina Mac, RN 44 [place] [address] Osmin@[facility] Primary Infusion Nurse 11/08/17 Luciana Brennan, RN 44 [place] [address] XAVIER@[facility] Primary Infusion Nurse 11/08/17 Alonso Pickett MD [address] [place] [address] Dr Fiore [address] [place] [address] Gynecologic Oncology 12/13/18 Cally Tolliver LICSW [address] [place] [address] Dr Fiore 125 [place] [address] Alexia@[facility] .[facility] Athletic Instructor Oncology 12/29/21 documented as of this encounter Additional Source Comments The information contained in this document represents components of the legal health record. It is not the complete legal health record.[facility]
--- OUTSIDE RECORDS SUMMARY | 2025-09-27 14:00 | XMS_ITS | Encounter Summary ---
Author Organization [facility] Address [address] [facility] [address] [place] [address] Phone Care Team Providers Care Group Teacher Name Role Phone Diomedes Odonnell MD Unavailable [phone] Gavi Black MD Unavailable [phone] Kenn Hennessy MD Unavailable [phone] Luisito Mckeon MD Unavailable Unavailable Luisito Mckeon MD Primary Care Provider Unavail able Adina Mac RN Unavailable [phone] Luciana Brennan RN Unavailable OSVALDO BRENNAN@[email or web address].[email or web address] Alonso Pickett MD Unavailable [phone] Cally Tolliver Unavailable Michelle Tolliver@[email or web address].[email or web address] Encounter Details Date Type Department Care Team (Late st Contact Info) Description 01/08/2018 Procedure Pass [facility] Periop [address] [place] [address] Social History Tobacco Use Types Packs/Day Years [...] Description 04/10/2026 8:00 AM EDT Office Visit [facility]' Department of Neurology [address] [place] [address] Luann Cruz MBBS 60 [facility] Neurology Dept., 4th [place] [address] [email or web address]. candace documented as of this encounter Visit Diagnoses Not on filedocumented in this encounter Care Teams Group Teacher Relationship Specialty Start Date End Date Luisito Mckeon MD PCP - General Endocrinology 10/11/17 Diomedes Odonnell MD [address] [place] [address] 261 [place] [address] YAKELIN@[facility] Thoracic Surgery 07/11/17 Gavi Black MD [address] [place] [address] Matt@[email or web address] Hematology and Oncology 07/18/17 Kenn Hennessy MD [address] [place] [address] Internal Medicine 10/02/17 01/24/18 Luisito Mckeon MD Primary Care Physician Endocrinology 10/02/17 Adina Mac, RN [address] [place] [address] Osmin@[email or web address] Primary Infusion Nurse 11/08/17 Luciana Brennan, RN [address] [place] [address] XAVIER@[facility] Primary Infusion Nurse 11/08/17 Alonso Pickett MD [address] [place] [address] Dr [address] [place] [address] Gynecologic Oncology 12/13/18 Cally Tolliver LICSW [address] [place] [address] Dr [address] [place] [address] Alexia@[facility] .[facility] Cement Mason Apprentice Oncology 12/29/21 documented as of this encounter Additional Source Comments The information contained in this document represents components of the legal health record. It is not the complete legal health record.[facility]
--- OUTSIDE RECORDS SUMMARY | 2025-09-27 14:00 | XMS_ITS ---
Author Name [facility] Organization Unknown Care Team Organization Name Specialty Phone Email Start Date End Da te [facility] ACO 2025 [facility] Cathy Bauer Primary Care 04/14/202306/06 [facility] Christina Alcala Primary Care 09/13/2022
--- OUTSIDE RECORDS SUMMARY | 2025-09-27 14:00 | XMS_ITS | Encounter Summary ---
Author Organization [facility] Address [address] [facility] [address] [place] [address] Phone Care Team Providers Care Video Production Specialist Name Role Phone Diomedes Odonnell MD Unavailable Gavi Black MD Unavailable [phone] Luisito Mckeon MD Unavailable Unavailable Luisito Mckeon MD Primary Care Provider Unavail able Adina Mac RN Unavailable [phone] Luciana Brennan RN Unavailable OSVALDO BRENNAN@[email or web address].[email or web address] Alonso Pickett MD Unavailable [phone] Cally Tolliver Unavailable Michelle Tolliver@[facility] Encounter Details Date Type Department Care Team (Late st Contact Info) Description 06/19/2024 Procedure Pass [facility] [place] [facility] [place] [place] [address] [facility] 4th [place] [address] Social History Tobacco Use Types Packs/Day Years [...] Description 04/10/2026 8:00 AM EDT Office Visit [facility]' Department of Neurology [address] [place] [address] Luann Cruz MBBS 60 [facility] Neurology Dept., 4th [place] [address] [email or web address]@[facility] candace documented as of this encounter Visit Diagnoses Not on filedocumented in this encounter Care Teams Video Production Specialist Relationship Specialty Start Date End Date Luisito Mckeon MD PCP - General Endocrinology 10/11/17 Diomedes Odonnell MD [address] [place] [address] 261 [place] [address] YAKELIN@[facility] Thoracic Surgery 07/11/17 Gavi Black MD [address] [place] [address] Matt@[facility] Hematology and Oncology 07/18/17 Luisito Mckeon MD Primary Care Physician Endocrinology 10/02/17 Adina Mac, RN 44 [place] [address] Osmin@[facility] Primary Infusion Nurse 11/08/17 Luciana Brennan, RN 44 [place] [address] XAVIER@[facility] Primary Infusion Nurse 11/08/17 Alonso Pickett MD [address] [place] [address] Dr Fi[address] [place] [address] Gynecologic Oncology 12/13/18 Cally Tolliver LICSW [address] [place] [address] Dr Fiore [address] [place] [address] Alexia@[email or web address] Cartoonist Special Effects Oncology 12/29/21 documented as of this encounter Additional Source Comments The information contained in this document represents components of the legal health record. It is not the complete legal health record.[facility]
--- OUTSIDE RECORDS SUMMARY | 2025-09-27 14:00 | XMS_ITS | Encounter Summary ---
Author Organization [facility] Address [address] [facility] [address] [place] [address] Phone Care Team Providers Care Residential Air Sealing Technician Name Role Phone Diomedes Odonnell MD Unavailable Gavi Black MD Unavailable [phone] Luisito Mckeon MD Unavailable Unavailable Luisito Mckeon MD Primary Care Provider Unavail able Adina Mac RN Unavailable [phone] Luciana Brennan RN Unavailable OSVALDO BRENNAN@[email or web address].[email or web address].[facility] Alonso Pickett MD Unavailable [phone] Cally Tolliver Unavailable Michelle Tolliver@[email or web address].[email or web address].[facility] Encounter Details Date Type Department Care Team (Late st Contact Info) Description 06/09/2021 Ancillary Orders [facility], [facility], [facility] [facility] [place] [address] [place] [address], 9th [place] [address] Vito Infante MD [address] [place] [phone] [email or web address] Social History Tobacco Use Types Packs/Day Years [...] Assessment Author No 08/19/2017 7:47 AM EDT Priiclla Simons PA-C * Patient has serious difficulty [...] Date Author No 08/19/2017 7:47 AM EDT rPicilla Simons PA-C documented in this encounter Plan of Treatment Upcoming Encounters Date Type Department Care Team (Late st Contact Info) Description 04/10/2026 8:00 AM EDT Office Visit [facility] Department of Neurology 60 [place] [address] Luann Cruz MBBS 60 [facility] Neurology Dept., 4th [place] [address] [email or web address]@[email or web address] candace documented as of this encounter Visit Diagnoses Not on filedocumented in this encounter Care Teams Residential Air Sealing Technician Relationship Specialty Start Date End Date Luisito Mckeon MD PCP - General Endocrinology 10/11/17 Diomedes Odonnell MD [address] [place] [address] 261 [place] [address] YAKELIN@[facility] Thoracic Surgery 07/11/17 Gavi Black MD [address] [place] [address] Matt@[facility] Hematology and Oncology 07/18/17 Luisito Mckeon MD Primary Care Physician Endocrinology 10/02/17 Adina Mac, RN [address] [place] [address] Osmin@[email or web address] Primary Infusion Nurse 11/08/17 Luciana Brennan, RN [address] [place] [address] XAVIER@[facility] Primary Infusion Nurse 11/08/17 Alonso Pickett MD [address] [place] [address] Dr Fiore [address] [place] [address] Gynecologic Oncology 12/13/18 Cally Tolliver LICSW [address] [place] [address] Dr Fiore [address] [place] [address] Alexia@[email or web address] Firer Tunnel Kiln Oncology 12/29/21 documented as of this encounter Additional Source Comments The information contained in this document represents components of the legal health record. It is not the complete legal health record.[facility]
--- OUTSIDE RECORDS SUMMARY | 2025-09-27 14:00 | XMS_ITS | Encounter Summary ---
Author Organization [facility] Address [address] [facility] [address] [place] [address] Phone Care Team Providers Care Family Psychologist Name Role Phone Diomedes Odonnell MD Unavailable [phone] Gavi Black MD Unavailable [phone] Luisito Mckeon MD Unavailable Unavailable Luisito Mckeon MD Primary Care Provider Unavail able Adina Mac RN Unavailable [phone] Luciana Brennan RN Unavailable OSVALDO BRENNAN@[email or web address].[facility] Alonso Pickett MD Unavailable [phone] Cally Tolliver Unavailable Michelle Tolliver@[facility] Encounter Details Date Type Department Care Team (Late st Contact Info) Description 06/06/2022 [facility] [place] [address] [address] Social History Tobacco Use Types [...] Description 04/10/2026 8:00 AM EDT Office [facility] Department of Neurology [address] [place] [address] Luann Cruz MBBS 60 [facility] Neurology Dept., 4th [place] [address] [email or web address]@[email or web address]. candace documented as of this encounter Visit Diagnoses Not on filedocumented in this encounter Care Teams Family Psychologist Relationship Specialty Start Date End Date Luisito Mckeon MD PCP - General Endocrinology 10/11/17 Diomedes Odonnell MD [address] [place] [address] 261 [place] [address] YAKELIN@[facility] Thoracic Surgery 07/11/17 Gavi Black MD [address] [place] [address] Matt@[email or web address] Hematology and Oncology 07/18/17 Luisito Mckeon MD Primary Care Physician Endocrinology 10/02/17 Adina Mac, RN [address] [place] [address] Osmin@[email or web address] Primary Infusion Nurse 11/08/17 Luciana Brennan RN [address] [place] [address] XAVIER@[facility] Primary Infusion Nurse 11/08/17 Alonso Pickett MD [address] [place] [address] Dr [address] [place] [address] Gynecologic Oncology 12/13/18 Cally Tolliver LICSW [address] [place] [address] Dr Fi[address] [place] [address] Alexia@[facility] Manager Statistics Oncology 12/29/21 documented as of this encounter Additional Source Comments The information contained in this document represents components of the legal health record. It is not the complete legal health record.[facility]
--- OUTSIDE RECORDS SUMMARY | 2025-09-27 14:00 | XMS_ITS | Encounter Summary ---
Author Organization [facility] Address [address] [facility] [address] [place] [address] Phone Care Team Providers Care Supply Chain Specialist Name Role Phone Diomedes Odonnell MD Unavailable [phone] Gavi Black MD Unavailable [phone] Luisito Mckeon MD Unavailable Unavailable Luisito Mckeon MD Primary Care Provider Unavail able Adina Mac RN Unavailable [phone] Luciana Brennan RN Unavailable OSVALDO BRENNAN@[facility].[email or web address].[facility] Alonso Pickett MD Unavailable [phone] Cally Tolliver Unavailable Michelle Tolliver@[email or web address] Encounter Details Date Type Department Care Team (Late st Contact Info) Description 09/24/2020 [facility] [place] [address] [address] Social History Tobacco Use Types [...] Description 04/10/2026 8:00 AM EDT Office Visit [facility] Department of Neurology [address] [place] [address] Luann Cruz MBBS 60 [facility] Neurology Dept., 4th [place] [address] [email or web address]. candace documented as of this encounter Visit Diagnoses Not on filedocumented in this encounter Care Teams Supply Chain Specialist Relationship Specialty Start Date End Date Luisito Mckeon MD PCP - General Endocrinology 10/11/17 Diomedes Odonnell MD [address] [place] [address] 261 [place] [address] YAKELIN@[facility] Thoracic Surgery 07/11/17 Gavi Black MD [address] [place] [address] Matt@[facility] Hematology and Oncology 07/18/17 Luisito Mckeon MD Primary Care Physician Endocrinology 10/02/17 Adina Mac, RN [address] [place] [address] Osmin@[facility] Primary Infusion Nurse 11/08/17 Luciana Brennan RN [address] [place] [address] XAVIER@[facility] Primary Infusion Nurse 11/08/17 Alonso Pickett MD [address] [place] [address] Dr [address] [place] [address] Gynecologic Oncology 12/13/18 Cally Tolliver LICSW [address] [place] [address] Dr [address] [place] [address] Alexia@[facility] Crozer Operator Oncology 12/29/21 documented as of this encounter Additional Source Comments The information contained in this document represents components of the legal health record. It is not the complete legal health record.[facility]
--- OUTSIDE RECORDS SUMMARY | 2025-09-27 14:00 | XMS_ITS | Clinical Summary ---
Author Organization [facility] Address [address] [facility] [address] [place] [address] Phone Care Team Providers Care Newspaper Writer Name Role Phone Diomedes Odonnell MD Unavailable [phone] Gavi Black MD Unavailable [phone] Luisito Mckeon MD Unavailable Unavailable Luisito Mckeon MD Primary Care Provider Unavail able Adina Mac RN Unavailable [phone] Luciana Monreal RN Unavailable OSVALDO [email or web address] Alonso Pickett MD Unavailable [phone] Cally Tolliver Unavailable Michelle [email or web address] Allergies Active Allergy Reactions Criticality Noted [...] different from the original. [facility]- [phone] and Problem Noted Date Diagnosed Date EGFR-related [...] Encounters Date Type Department Care Team Description 09/24/2025 [facility] for Thoracic Oncology, [address], [place] [address] Ximena Barlow, RHONA Care Coordination 09/24/2025 [facility] Thoracic Oncology, [address], [address] [place] [address] Ritchie oDdge RN 09/23/2025 Social Work Social Work Department, [address] [address] Precious Cowart LICSW 09/18/2025 Social Work Social Work Department, [address] [address] Precious Cowart LICSW 09/18/2025 [facility] Thoracic Oncology, [address], [address] [place] [address] Ximena Barlow, RHONA Care Coordination (VNA ) 09/17/2025 4:00 PM EST Telemedicine [facility] Thoracic Oncology, [facility] at [address] [address] Gavi Black MD Olsen, Catherine, LICSW Adenocarcinoma of right lung (Primary Dx); EGFR-related lung cancer 09/17/2025 Orders Only [facility] Thoracic Oncology, [facility] at [address] [address] Gavi Black MD 09/10/2025 Transcribe Orders [facility] Neurology [address] [facility] [place] [address] María Molina [place] Cognitive impairment (Primary Dx) 09/09/2025 11:00 AM EST Office Visit [facility] [place] [facility] At [facility] Rad Onc [address] [place] [address] Estelle Chavira MD Non-small cell cancer of left lung (Primary Dx) 09/09/2025 Social Work Social Work Department, [facility] [address] [place] [address] Precious Cowart LICSW 09/09/2025 Social Work Social Work Department, [facility] [address] [place] [address] Precious Cowart SPONGE PACKER 09/04/2025 Telephone [facility] for Thoracic Oncology, [facility] [address] 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 I don't see one but they stated this was requested by Dr. Feng. She is already scheduled to go in tomorrow but they require the order from our office. Please advise./) 08/26/2025 Telephone [facility] [place] [facility] Onc [address] [place] [address] Estelle [facility]ira [facility] 08/12/2025 9:00 AM EDT Office Visit [facility] [place] Cancer Center At [address] [address] Estelle Chavira MD Non-small cell cancer of left lung (Primary Dx) 08/12/2025 Documentation [facility] [place] [facility] At [facility] Rad Onc [address] [place] [address] Estelle Chavira MD 08/12/2025 Telephone [facility] [place] [facility] At [facility] Rad Onc [address] [place] [address] Estelle Chavira MD 07/28/2025 Telephone [facility] for Thoracic Oncology, [facility] [address] [facility], 9th [place] [address] Luis Manuel Adkins RN 07/22/2025 Refill [facility] for Thoracic Oncology, [facility] [place] 300 [facility] 4th [place] [address] Rosa Carroll, ROMELIA Medication Refill 07/04/2025 Orders Only Department of Radiation Oncology [address] [place] [address] Vianca Feng MD, PhD 06/30/2025 11:00 AM EDT Telemedicine [facility] for Thoracic Oncology, [facility] [address] [facility], 9th [place] [address] Vianca Feng MD, PhD EGFR-related lung cancer (Primary Dx) from Last 3 Months Family History Medical [...] 06/19/2025 9:22 AM EDT Plan of Treatment Upcoming Encounters Date Type Department Care Team (Late st Contact Info) Description 04/10/2026 8:00 AM EDT Office Visit [facility] Department of Neurology [address] [place] [address] Luann Cruz MBBS 60 [facility] Neurology Dept., 4th [place] [address] [email or web address] Health Maintenance Due Date Last Done Comments [...] cancer of left lung OUTSIDE IMAGING 08/28/2025 THYROID STIMULATING HORMONE (TSH) Routine 12/20/2024 8:44 AM EST EGFR-related lung cancer Memory loss Neoplastic malignant related fatigue from Last 3 Months or Most Recently Relevant to Health Maintenance Results * NM PET CT Skull Base to Mid Thighs (08/28/2025 11:56 AM EDT) Anatomical Region Laterality Modality Positron Emissio n Tomography (PET) Narrative 08/28/2025 10:04 AM EDT [facility] Bry Scott MD G NM PET Final Result * Outside Imaging Report Only (08/28/2025) us Scanning Interface Provider IMG XR CHEST Kelsea l Result * TSH (12/20/2024 8:44 AM EST) TSH 2.94 0.27 - 4.20 uIU/mL [facility] LIC# [id number] Blood 12/20/2024 8:44 AM EST 12/20/2024 8:50 AM EST us J Juan Black MD LAB BLOOD BKR ORDERABLES Final Result [facility] LIC# [id number] [address] [place] [address], [facility] from Last 3 Months or Most Recently Relevant to Health Maintenance Insurance [address] [place] [address] MEDICARE PART A & B [facility] MEDICARE SUPPLEMENT MEDICARE PART A & B [employer] MEDICARE SUPPLEMENT MEDICARE PART A & B [address] [employer] MEDICARE SUPPLEMENT MEDICARE PART A & B [facility] MEDICARE SUPPLEMENT MEDICARE PART A & B [facility] MEDICARE SUPPLEMENT MEDICARE PART A & B [facility] MEDICARE SUPPLEMENT MEDICARE PART A & B Member Subscriber Plan / Payer ( fective 2009-Present) Name:Lashawn Gudino Member ID:[id number] Relation to Subscriber:Self Name:Lashawn Gudino Subscriber ID:[id number] Payer ID:[id number] Group ID:Not on file Type:Medicare Address: [employer] 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 Healthcare Proxy 01/08/2018 5:37 AM * Full Code (Presumed) (Latest Code Status on File) Date Activated Date Inactivated Comments 01/08/2018 11:20 AM 01/12/2018 3:08 PM * Full Code (Presumed) Date Activated Date Inactivated Comments 08/18/2017 5:30 PM 08/19/2017 12:25 PM Healthcare Agents on File Name Relationship Healthcare Agent Relationshi p Communication Sim Gudino Son .Primary Health Care Agent (Proxy form on file) [email or web address] Care Teams Newspaper Writer Relationship Specialty Start Date End Date Luisito Mckeon MD PCP - General Endocrinology 10/11/17 Diomedes Odonnell MD [address] [place] [address] [email or web address] Thoracic Surgery 07/11/17 Gavi Black MD [address] [place] [address] [email or web address] Hematology and Oncology 07/18/17 Luisito Mckeon MD Primary Care Physician Endocrinology 10/02/17 Adina Mac, RN [address] [place] [address] [email or web address]@[email or web address] Primary Infusion Nurse 11/08/17 Luciana Monreal, RN [address] [place] [address] XAVIER@[facility] Primary Infusion Nurse 11/08/17 Alonso Pickett MD [address] [place] [address] Dr [address] [place] [address] Gynecologic Oncology 12/13/18 Cally Tolliver LICSW [address] [place] [address] Dr Fi[address] [place] [address] Alexia@[email or web address] Forging Die Finisher Oncology 12/29/21 Additional Source Comments The information contained in this document represents components of the legal health record. It is not the complete legal health record.[facility]
--- OUTSIDE RECORDS SUMMARY | 2025-09-27 14:00 | XMS_ITS | Encounter Summary ---
Author Organization [facility] Address [address] [facility] [address] [place] [address] Phone Care Team Providers Care Car Shagger Name Role Phone Diomedes Odonnell MD Unavailable [phone] Gavi Black MD Unavailable [phone] Luisito Mckeon MD Unavailable Unavailable Luisito Mckeon MD Primary Care Provider Unavail able Adina Mac RN Unavailable [phone] Luciana Brennan RN Unavailable OSVALDO [email or web address] Alonso Pickett MD Unavailable [phone] Cally Tolliver Unavailable Michelle Tolliver@[email or web address] Encounter Details Date Type Department Care Team (Late st Contact Info) Description 06/09/2021 [facility] [place] [address] [address] Social History Tobacco Use Types [...] Description 04/10/2026 8:00 AM EDT Office Visit [facility] and Women's Department of Neurology [address] [place] [address] Luann Cruz MBBS 60 [facility] Neurology Dept., 4th [place] [address] [email or web address] documented as of this encounter Visit Diagnoses Not on filedocumented in this encounter Care Teams Car Shagger Relationship Specialty Start Date End Date Luisito Mckeon MD PCP - General Endocrinology 10/11/17 Diomedes Odonnell MD [address] [place] [address] 261 [place] [address] YAKELIN@[email or web address] Thoracic Surgery 07/11/17 Gavi Black MD [address] [place] [address] [email or web address] Hematology and Oncology 07/18/17 Luisito Mckeon MD Primary Care Physician Endocrinology 10/02/17 Adina Mac, RN [address] [place] [address] [email or web address]@[email or web address] Primary Infusion Nurse 11/08/17 Luciana Brennan RN [address] [place] [address] [email or web address]@[email or web address] Primary Infusion Nurse 11/08/17 Alonso Pickett MD [address] [place] [address] Dr Fi[address] [place] [address] Gynecologic Oncology 12/13/18 Cally Tolliver LICSW [address] [place] [address] Dr Fi[address] [place] [address] Alexia@[facility] Household Worker Oncology 12/29/21 documented as of this encounter Additional Source Comments The information contained in this document represents components of the legal health record. It is not the complete legal health record.[facility]
--- OUTSIDE RECORDS SUMMARY | 2025-09-27 14:00 | XMS_ITS | Encounter Summary ---
Author Organization [facility] Address [address] [facility] [address] [place] [address] Phone Care Team Providers Care Meter Record Clerk Name Role Phone Diomedes Odonnell MD Unavailable [phone] Gavi Black MD Unavailable [phone] Luisito Mckeon MD Unavailable Unavailable Luisito Mckeon MD Primary Care Provider Unavail able Adina Mac RN Unavailable [phone] Luciana Brennan RN Unavailable OSVALDO BRENNAN@[email or web address] Alonso Pickett MD Unavailable [phone] Cally Tolliver Unavailable Michelle Tolliver@[email or web address] Encounter Details Date Type Department Care Team (Late st Contact Info) Description 03/07/2022 [facility] Pass [facility] [place], [place] [address] [address] Social History Tobacco Use Types [...] AM EDT Office Visit [facility] and Women's Department of Neurology [address] [place] [address] Luann Cruz MBBS 60 [facility] Neurology Dept., 4th [place] [address] [email or web address] documented as of this encounter Visit Diagnoses Not on filedocumented in this encounter Care Teams Meter Record Clerk Relationship Specialty Start Date End Date Luisito Mckeon MD PCP - General Endocrinology 10/11/17 Diomedes Odonnell MD [address] [place] [address] 261 [place] [address] YAKELIN@[facility] Thoracic Surgery 07/11/17 Gavi Black MD [address] [place] [address] [email or web address] Hematology and Oncology 07/18/17 Luisito Mckeon MD Primary Care Physician Endocrinology 10/02/17 Adina Mac, RN [address] [place] [address] Osmin@[email or web address] Primary Infusion Nurse 11/08/17 Luciana Brennan RN [address] [place] [address] XAVIER@[facility] Primary Infusion Nurse 11/08/17 Alonso Pickett MD [address] [place] [address] Dr Fi[address] [place] [address] Gynecologic Oncology 12/13/18 Cally Tolliver LICSW [address] [place] [address] Dr Fiore [address] [place] [address] Alexia@[facility] Home Health Attendant Oncology 12/29/21 documented as of this encounter Additional Source Comments The information contained in this document represents components of the legal health record. It is not the complete legal health record.[facility]
--- OUTSIDE RECORDS SUMMARY | 2025-09-27 14:00 | XMS_ITS | Encounter Summary ---
Author Organization [facility] Address [address] [facility] [address] [place] [address] Phone Care Team Providers Care Transmitter Operator Name Role Phone Diomedes Odonnell MD Unavailable [phone] Gavi Black MD Unavailable [phone] Luisito Mckeon MD Unavailable Unavailable Luisito cMkeon MD Primary Care Provider Unavail able Adina Mac RN Unavailable [phone] Luciana Brennan RN Unavailable OSVALDO BRENNAN@[email or web address] Alonso Pickett MD Unavailable [phone] Cally Tolliver Unavailable Michelle Tolliver@[facility] Encounter Details Date Type Department Care Team (Late st Contact Info) Description 09/24/2025 Telephone [facility] Center for Thoracic Oncology, [facility] [address] [place] [address], 9th [place] [address] Ritchie Dodge, RN [address] [place] [address] [email or web address] Social History Tobacco Use Types Packs/Day Years [...] Pricilla Simons PA-C documented in this encounter Progress Notes * Ritchie Dodge RN - 09/25/2025 9:19 AM EST Erroneous error documented in this encounter Plan of Treatment Upcoming Encounters Date Type Department Care Team (Late st Contact Info) Description 04/10/2026 8:00 AM EDT Office Visit [facility] Department of Neurology [address] [place] [address] Luann Cruz MBBS 60 [facility] Neurology Dept., 4th [place] [address] [email or web address] documented as of this encounter Visit Diagnoses Not on filedocumented in this encounter Care Teams Transmitter Operator Relationship Specialty Start Date End Date Luisito Mckeon MD PCP - General Endocrinology 10/11/17 Diomedes Odonnell MD [address] [place] [address] YAKELIN@[facility] Thoracic Surgery 07/11/17 Gavi Black MD [address] [place] [address] [email or web address] Hematology and Oncology 07/18/17 Luisito Mckeon MD Primary Care Physician Endocrinology 10/02/17 Adina Mac RN [address] [place] [address] Osmin@[email or web address]. [facility] Primary Infusion Nurse 11/08/17 Luciana Brennan, RN [address] [place] [address] [email or web address]@[email or web address] Primary Infusion Nurse 11/08/17 Alonso Pickett MD [address] [place] [address] Dr Fi[address] [place] [address] Gynecologic Oncology 12/13/18 Cally Tolliver LICSW [address] [place] [address] Dr Fi[address] [place] [address] Alexia@[facility] Cell Liner Oncology 12/29/21 documented as of this encounter Additional Source Comments The information contained in this document represents components of the legal health record. It is not the complete legal health record.[facility]
--- OUTSIDE RECORDS SUMMARY | 2025-09-27 14:00 | XMS_ITS ---
Author Organization [facility] Address [address] [facility] [address] [place] [address] Phone Care Team Providers Care Business Controller Name Role Phone Diomedes Odonnell MD Unavailable [phone] Gavi Black MD Unavailable [phone] Luisito Mckeon MD Unavailable Unavailable Luisito Mckeon MD Primary Care Provider Unavail able Adina Mac RN Unavailable [phone] Luciana Brennan RN Unavailable OSVALDO BRENNAN@[email or web address].[facility] Alonso Pickett MD Unavailable [phone] Cally Tolliver Unavailable Michelle Tolliver@[facility] Active Problems Patient Care Coordination No te Formatting of this note migh t be different from the original. [facility]/[employer] EXECUT[employer]- [phone] and Problem Noted Date Diagnosed Date EGFR-related [...]
--- OUTSIDE RECORDS SUMMARY | 2025-09-27 14:00 | XMS_ITS | Encounter Summary ---
Author Organization [facility] Address [address] [facility] [address] [place] [address] Phone Care Team Providers Care Pipe Fittings Molder Name Role Phone Diomedes Odonnell MD Unavailable [phone] Gavi Black MD Unavailable [phone] Kenn Hennessy MD Unavailable [phone] Luisito Mckeon MD Unavailable Unavailable Luisito Mckeon MD Primary Care Provider Unavail able Adina Mac RN Unavailable [phone] Luciana Brennan RN Unavailable OSVALDO BRENNAN@[email or web address] Alonso Pickett MD Unavailable [phone] Cally Tolliver Unavailable Michelle Tolliver@[email or web address] Encounter Details Date Type Department Care Team (Late st Contact Info) Description 01/01/2018 Procedure Pass [facility] Periop [address] [place] [address] Social History Tobacco Use Types Packs/Day Years [...] Description 04/10/2026 8:00 AM EDT Office Visit [facility] [place] Department of Neurology [address] [place] [address] Luann Cruz MBBS 60 [facility] Neurology Dept., 4th [place] [address] [email or web address] documented as of this encounter Visit Diagnoses Not on filedocumented in this encounter Care Teams Pipe Fittings Molder Relationship Specialty Start Date End Date Luisito Mckeon MD PCP - General Endocrinology 10/11/17 Diomedes Odonnell MD [address] [place] [address] 261 [place] [address] YAKELIN@[facility] Thoracic Surgery 07/11/17 Gavi Black MD [address] [place] [address] [email or web address] Hematology and Oncology 07/18/17 Kenn Hennessy MD [address] [place] [address] Internal Medicine 10/02/17 01/24/18 Luisito Mckeon MD Primary Care Physician Endocrinology 10/02/17 Adina Mac, RN [address] [place] [address] [email or web address] Primary Infusion Nurse 11/08/17 Luciana Brennan, RN [address] [place] [address] [email or web address]@[facility] Primary Infusion Nurse 11/08/17 Alonso Pickett MD [address] [place] [address] Dr [address] [place] [address] Gynecologic Oncology 12/13/18 Cally Tolliver LICSW [address] [place] [address] Dr Fiore [address] [place] [address] Alexia@[facility] .[facility] Senior Administrative Associate Oncology 12/29/21 documented as of this encounter Additional Source Comments The information contained in this document represents components of the legal health record. It is not the complete legal health record.[facility]
--- OUTSIDE RECORDS SUMMARY | 2025-09-27 14:00 | XMS_ITS | Encounter Summary ---
Author Organization [facility] Address [address] [place] [address] Phone Care Team Providers Care Simulation Tech Name Role Phone Diomedes Odonnell MD Unavailable [phone] Gavi Black MD Unavailable [phone] Luisito Mckeon MD Unavailable Unavailable Luisito Mckeon MD Primary Care Provider Unavail able Adina Mac RN Unavailable [phone] Luciana Brennan RN Unavailable OSVALDO [email or web address] Alonso Pickett MD Unavailable [phone] Cally Tolliver Unavailable Michelle Tolliver@[email or web address] Encounter Details Date Type Department Care Team (Late st Contact Info) Description 06/09/2021 [facility] [place] [address] [address] Social History Tobacco Use Types [...] Description 04/10/2026 8:00 AM EDT Office Visit [facility] Department of Neurology [address] [place] [address] Luann Cruz MBBS [address] [facility] Neurology Dept., 4th [place] [address] [email or web address] documented as of this encounter Visit Diagnoses Not on filedocumented in this encounter Care Teams Simulation Tech Relationship Specialty Start Date End Date Luisito Mckeon MD PCP - General Endocrinology 10/11/17 Diomedes Odonnell MD [address] [place] [address] 261 [place] [address] [email or web address] Thoracic Surgery 07/11/17 Gavi Black MD [address] [place] [address] [email or web address] Hematology and Oncology 07/18/17 Luisito Mckeon MD Primary Care Physician Endocrinology 10/02/17 Adina Mac, RN [address] [place] [address] [email or web address] Primary Infusion Nurse 11/08/17 Luciana Brennan RN [address] [place] [phone] XAVIER@[email or web address] Primary Infusion Nurse 11/08/17 Alonso Pickett MD [address] [place] [address] Dr [address] [place] [address] Gynecologic Oncology 12/13/18 Cally Tolliver LICSW [address] [place] [address] Dr Fi[address] [place] [address] Alexia@[email or web address] Title Agent Oncology 12/29/21 documented as of this encounter Additional Source Comments The information contained in this document represents components of the legal health record. It is not the complete legal health record.[facility]
--- OUTSIDE RECORDS SUMMARY | 2025-09-27 14:00 | XMS_ITS | Encounter Summary ---
Author Organization [facility] Address [address] [facility] [place] [address] Phone Care Team Providers Care Aerial Photograph Interpreter Name Role Phone Diomedes Odonnell MD Unavailable [phone] Gavi Black MD Unavailable [phone] Luisito Mckeon MD Unavailable Unavailable Luisito Mckeon MD Primary Care Provider Unavail able Adina Mac RN Unavailable [phone] Luciana Brennan RN Unavailable OSVALDO [email or web address] Alonso Pickett MD Unavailable [phone] Cally Tolliver Unavailable Michelle [email or web address] Encounter Details Date Type Department Care Team (Late st Contact Info) Description 03/07/2022 [facility] [place] [address] [address] Social History Tobacco Use Types [...] Office Visit [facility] and Women's Department of Neurology [address] [place] [address] Luann Cruz MBBS 60 [facility] Neurology Dept., 4th [place] [address] [email or web address] candace documented as of this encounter Visit Diagnoses Not on filedocumented in this encounter Care Teams Aerial Photograph Interpreter Relationship Specialty Start Date End Date Luisito Mckeon MD PCP - General Endocrinology 10/11/17 Diomedes Odonnell MD [address] [place] [address] 261 [place] [address] YAKELIN@[facility] Thoracic Surgery 07/11/17 Gavi Black MD [address] [place] [address] [email or web address] Hematology and Oncology 07/18/17 Luisito Mckeon MD Primary Care Physician Endocrinology 10/02/17 Adina Mac, RN [address] [place] [address] [email or web address] Primary Infusion Nurse 11/08/17 Luciana Brennan RN [address] [place] [address] XAVIER@[email or web address] Primary Infusion Nurse 11/08/17 Alonso Pickett MD [address] [place] [address] Dr Fi[address] [place] [address] Gynecologic Oncology 12/13/18 Cally Tolliver LICSW [address] [place] [address] Dr Fi[address] [place] [address] Alexia@[facility] Computer Graphic Designer Oncology 12/29/21 documented as of this encounter Additional Source Comments The information contained in this document represents components of the legal health record. It is not the complete legal health record.[facility]
--- OUTSIDE RECORDS SUMMARY | 2025-09-27 14:00 | XMS_ITS | Encounter Summary ---
Author Organization [facility] Address [address] [facility] [address] [place] [address] Phone Care Team Providers Care Inspector Government Property Name Role Phone Diomedes Odonnell MD Unavailable [phone] Gavi Black MD Unavailable [phone] Luisito Mckeon MD Unavailable Unavailable Luisito Mckeon MD Primary Care Provider Unavail able Adina Mac RN Unavailable [phone] Luciana Brennan RN Unavailable OSVALDO [email or web address] Alonso Pickett MD Unavailable [phone] Cally Tolliver Unavailable Michelle [email or web address] Reason for Visit * Reason Onset Date Comments Care Coordination 09/24/2025 Encounter Details Date Type Department Care Team (Late st Contact Info) Description 09/24/2025 Telephone [facility] for Thoracic Oncology, [facility] [place] [address] [facility], 9th [place] [address] Ximena Barlow, RN [address] [facility] [place] [address] [email or web address] .[email or web address] Care Coordination Social History Tobacco Use Types Packs/Day Years [...] Progress Notes * Ximena Barlow RN - 09/24/2025 10:24 AM EST Received message from EVAN Sousa vm from patients son sim re: [facility] unable to come out being last clinical note dated June is too far out, face to face needed within [address] Black on 09/17- note not available at this time Called and spoke with Sim- reports patient being treated for UTI and remains a bit confused more off baseline- son states he is needing nurse for daily visit to provide medications- Educated on [facility]NA- will not come out daily to give medications- as would need private care to manage or family members providing medication reminders to patient with either phone call or in person. Advised to research private care agencies, elder services - discuss with pcp tomorrow and question if they can send referral for [facility] being face to face visit recently and tomorrow and to ensure to discuss concerns- patient has short term memory and early dementia- Son reports patient can be difficult and providing care is challenging for Sim- provided much support and reassurance. There is no HCP appointed- advised to d/w PCP tomorrow for assistance HCP, concerns re: being alone, ? Assisted living may be best and safest option. Requested EVAN Sousa contact sim for additional support which she has been providing- Reiterated to Sim to ensure to discuss these concerns with PCP for assistance Ximena Barlow RN, BSN, OCN Thoracic Oncology Nurse Navigator [facility] [place] documented in this encounter Plan of Treatment Upcoming Encounters Date Type Department Care Team (Late st Contact Info) Description 04/10/2026 8:00 AM EDT Office Visit [facility] and Women's Department of Neurology [address] [place] [address] Luann Cruz MBBS 60 [facility] Neurology Dept., 4th [place] [address] [email or web address] documented as of this encounter Visit Diagnoses Not on filedocumented in this encounter Care Teams Inspector Government Property Relationship Specialty Start Date End Date Luisito Mckeon MD PCP - General Endocrinology 10/11/17 Diomedes Odonnell MD [address] [place] [address] YAKELIN@[email or web address] Thoracic Surgery 07/11/17 Gavi Black MD [address] [place] [address] [email or web address] Hematology and Oncology 07/18/17 Luisito Mckeon MD Primary Care Physician Endocrinology 10/02/17 Adina Mac, RN 44 [place] [address] Osmin@[email or web address] Primary Infusion Nurse 11/08/17 Luciana Brennan, RN [address] [place] [address] XAVIER@[facility] Primary Infusion Nurse 11/08/17 Alonso Pickett MD [address] [place] [address] Dr Fiore [address] [place], [place] [id number] Gynecologic Oncology 12/13/18 Cally Tolliver LICSW [address] [place] [address] Dr Fiore [address] [place] [address] Alexia@[email or web address] Piercing Artist Oncology 12/29/21 documented as of this encounter Additional Source Comments The information contained in this document represents components of the legal health record. It is not the complete legal health record.[facility]
--- OUTSIDE RECORDS SUMMARY | 2025-09-27 14:00 | XMS_ITS | Encounter Summary ---
Author Organization [facility] Address [address] [facility] [address] [place] [address] Phone Care Team Providers Care Sql Engineer Name Role Phone Diomedes Odonnell MD Unavailable Gavi Black MD Unavailable [phone] Luisito Mckeon MD Unavailable Unavailable Luisito Mckeon MD Primary Care Provider Unavail able Adina Mac RN Unavailable [phone] Luciana Brennan RN Unavailable OSVALDO [email or web address] Alonso Pickett MD Unavailable [phone] Cally Tolliver Unavailable Michelle [email or web address] Encounter Details Date Type Department Care Team (Late st Contact Info) Description 06/19/2024 Procedure Pass [facility] [place], [place] [address] [address] Social History Tobacco Use Types Packs/Day Years [...] Description 04/10/2026 8:00 AM EDT Office Visit [facility] Department of Neurology [address] [place] [address] Luann Cruz MBBS 60 [facility] Neurology Dept., 4th [place] [address] [email or web address] candace documented as of this encounter Visit Diagnoses Not on filedocumented in this encounter Care Teams Sql Engineer Relationship Specialty Start Date End Date Luisito Mckeon MD PCP - General Endocrinology 10/11/17 Diomedes Odonnell MD [address] [place] [address] 261 [place] [address] YAKELIN@[facility] Thoracic Surgery 07/11/17 Gavi Black MD [address] [place] [address] [email or web address] Hematology and Oncology 07/18/17 Luisito Mckeon MD Primary Care Physician Endocrinology 10/02/17 Adina Mac, RN 44 [place] [address] [email or web address] Primary Infusion Nurse 11/08/17 Luciana Brennan, RN 44 [place] [address] XAVIER@[facility] Primary Infusion Nurse 11/08/17 Alonso Pickett MD [address] [place] [address] Dr Fiore [address] [place] [address] Gynecologic Oncology 12/13/18 Cally Tolliver LICSW [address] [place] [address] Dr Fiore [address] [place] [address] [email or web address] .[facility] Raw Material Handler Oncology 12/29/21 documented as of this encounter Additional Source Comments The information contained in this document represents components of the legal health record. It is not the complete legal health record.[facility]
--- OUTSIDE RECORDS SUMMARY | 2025-09-27 14:00 | XMS_ITS | Encounter Summary ---
Author Organization [facility] Address [address] [facility] [facility] [address] [place] [address] Phone Care Team Providers Care Gang Drill Operator Name Role Phone Diomedes Odonnell MD Unavailable [phone] Gavi Black MD Unavailable [phone] Kenn Hennessy MD Unavailable [phone] Luisito Mckeon MD Unavailable Unavailable Masha Garcia RN Unavailable [email or web address] Luisito Mckeon MD Primary Care Provider Unavail able Adina Mac RN Unavailable [phone] Luciana Brennan RN Unavailable OSVALDO [email or web address] Alonso Pickett MD Unavailable [phone] Cally Tolliver Unavailable Michelle [email or web address] Encounter Details Date Type Department Care Team (Late st Contact Info) Description 11/01/2017 Procedure Pass [facility], [facility] Cancer [place], [place] [address] [facility], [address] [place] [address] Social History Tobacco Use Types Packs/Day Years [...] Description 04/10/2026 8:00 AM EDT Office Visit [facility] Department of Neurology [address] [place] [address] Luann Cruz MBBS 60 [facility] Neurology Dept., 4th [place] [address] [email or web address] documented as of this encounter Visit Diagnoses Not on filedocumented in this encounter Care Teams Gang Drill Operator Relationship Specialty Start Date End Date Luisito Mckeon MD PCP - General Endocrinology 10/11/17 Diomedes Odonnell MD [address] [place] [address] 261 [place] [address] YAKELIN@[email or web address] Thoracic Surgery 07/11/17 Gavi Black MD [address] [place] [address] [email or web address] Hematology and Oncology 07/18/17 Kenn Hennessy MD [address] [place] [address] Internal Medicine 10/02/17 01/24/18 Luisito Mckeon MD Primary Care Physician Endocrinology 10/02/17 Masha Garcia, RN [address] [place] [address] [email or web address] Primary Infusion Nurse 10/09/17 11/07/17 Adina Mac, RN [address] [place] [address] [email or web address] Primary Infusion Nurse 11/08/17 Luciana Brennan, RN [address] [place] [address] [email or web address]@[email or web address] Primary Infusion Nurse 11/08/17 Alonso Pickett MD [address] [place] [address] Dr Fiore [address] [place] [address] Gynecologic Oncology 12/13/18 Cally Tolliver LICSW [address] [place] [address] Dr Fiore [address] [place] [address] Alexia@[facility] Vp Project Oncology 12/29/21 documented as of this encounter Additional Source Comments The information contained in this document represents components of the legal health record. It is not the complete legal health record.[facility]
--- OUTSIDE RECORDS SUMMARY | 2025-09-27 14:00 | XMS_ITS | Clinical Summary ---
Author Organization [facility] [address] [facility] Address [address] [place] [address] Phone Care Team Providers Care Document Preparer Microfilming Name Role Phone Christina Alcala MD Primary Care Provider [phone] Allergies Active Allergy Reactions Criticality Noted Date [...] 3 Active calcium carbonate (TUMS) 250 mg (yocha dehe 100 mg) ChewTab Take by mouth. Active levothyroxine (SYNTHROID, LEVOTHROID) 88 mcg tablet Take 1 tablet (88 mcg total) by mouth 1 (one) time each day before breakfast. 90 tablet 1 5 Active nitrofurantoin, macrocrystal-mo nohydrate, (MACROBID) 100 mg capsule Take 1 capsule (100 mg total) by mouth 2 (two) times a day. 5 Active levothyroxine (SYNTHROID, LEVOTHROID) 88 mcg tablet Take 1 tablet (88 mcg total) by mouth 1 (one) time each day before breakfast. 4 09/04/20 Discontinu ed(Reorder ) Active Problems Problem Noted Date Diagnosed Date Hyperlipidemia 03/17/2022 Overview (05/14/2025): ASCVD score 13.1% (March 2022) Cyst of spleen 02/28/2019 Overview (05/14/2025): Pulmonary insufficiency 01/09/2018 Malignant neoplasm of lung (CMS/HCC V24, CMS/[facility] V28) 08/30/2017 Overview (01/14/2024): Right lung biopsy, [...] cancer screening needed for 10 years. Stroke (CMS/HCC V24, CMS/HCC V28) 01/03/2008 Overview (01/14/2024): Lacunar infarct, follow-up MRI recommended 12/2008 Anxiety 12/11/2007 Osteoporosis 10/20/2005 Overview (01/14/2024): 03/26 T score spine -1.6 hip -2.7 Last Assessment & Plan: Management per PCP Resolved Problems Problem Noted Date Diagnosed Date Resolved Date Acute blood loss as cause of postoperative anemia 01/09/2018 05/14/2025 Acute postoperative pain 01/09/201807/2025 Lung mass 01/08/2018 05/14/2025 Adenocarcinoma of right lung ([facility] V24, [facility] V28) 07/18/2017 05/14/2025 Encounters Date Type Department Care Team Description 09/26/2025 Results Follow-Up Adult [address] [phone] Christina Alcala MD 09/25/2025 2:55 PM EST Lab Draw [address] Hypothyroidism, unspecified type; Memory changes; Vitamin D deficiency; Postablative hypothyroidism 09/25/2025 2:00 PM EST Office Visit Adult [address] [phone] Cathy Bauer PA Encounter for annual wellness visit (AWV) in Medicare patient (Primary Dx); Hypothyroidism, unspecified type; Memory changes; Urinary tract infection without hematuria, site unspecified 09/25/2025 Telephone Adult Medicine [address] [phone] Carlitos Coleman LPN 09/24/2025 Telephone Adult [address] [phone] Christina Alcala MD 09/04/2025 10:30 AM EDT Office Visit Adult [address] [phone] Christina Alcala MD Postablative hypothyroidism (Primary Dx); Hx of papillary thyroid carcinoma; Other hyperlipidemia; Malignant neoplasm of left lung, unspecified part of lung (CMS/HCC V24, CMS/HCC V28); Anxiety; Vitamin D deficiency; Cognitive impairment 09/01/2025 Nurse Triage Adult [address] [phone] Carolyn Ruano MA from Last 3 Months [...] Medical History Medical History Date Comments Stroke ([facility] V24, [facility] V28) 01/03/2008 Lacunar infarct, follow-up MRI recommended 12/2008 Diverticulosis of colon (brendon morgan mention of hemorrhage) 02/11/2010 Hemorrhage of gastrointestin al tract, unspecified 02/11/2010 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) 02/23/2010 Gastritis 02/23/2010 Vitamin D deficiency 05/05/2013 Pneumothorax 08/18/2017 Osteoporosis 10/20/2005 Malignant neoplasm of lung ( [facility] V24, [facility] V28) 08/30/2017 Right lung biopsy, 06/21/2017 ; poorly differentiated adenoca, chemo Right pneumonectomy, 01/08/2018 Left lung ground glass, enlarging, on chemo, presumed lung cancer Carcinoma of thyroid gland ( [facility] V24, [facility] V28) 07/18/2017 Micropapillary s/p thyroid r esction Family History Medical History Relation Name Comments Heart attack Brother coronary stent at age 59 Other: ? stroke Father Diabetes Mother , [place] Relation Name Status Comments Brother Father Mother [...] Record ed Within the last 3 months, radha pickering many times did you visit the emergency [...] for your loved ones. For example, exceptional children teacher assistant or elderly care for an older adult? [...] Mass Index 19.99 09/25/2025 1:53 PM EST Plan of Treatment Health Maintenance Due Date Last Done Comments Zoster Vaccines (1 of 2) 1964 RSV Immunization Adult Patients (1 - 1-dose 75+ series) 2019 DTaP,Tdap,and Td Vaccines (3 - Td or Tdap) 09/15/2024 09/15/2014, 05/14/2007 Depression Screening 11/06/2024 COVID-19 Vaccine ( season) 2025 12/16/2023, 09/02/2022, 10/20/2021, Additional history exists Falls Risk Assessment 09/25/2026 09/25/2025 , 09/25/2025, 05/23/2023 Medicare Annual Wellness Visit 09/25/2026 09/25/2025, 02/10/2022 Social Influencers of Health Screening 09/25/2026 09/25/2025 Cholesterol Screening (Lipid Panel) 12/13/2028 12/13/2023 Osteoporosis [...] Procedure Name Priority Date/Time Associated Diagnosis Comments TRIIODOTHYRONINE FREE Routine 09/25/2025 3:04 PM EST Postablative hypothyroidism FREE THYROXINE WITH REFLEX TO FREE TRIIODOTHYRONINE Routine 09/25/2025 3:04 PM EST Postablative hypothyroidism CBC WITH AUTO DIFFERENTIAL Routine 09/25/2025 3:04 PM EST Memory changes MO URINE CULTURE TUBE Routine 09/25/20 3:04 PM EST Memory changes URINALYSIS WITH REFLEX MICROSCOPIC AND CULTURE Routine 09/25/2025 3:04 PM EST Memory changes THYROID STIMULATING HORMONE WITH REFLEX TO FREE T4 AND FREE T3 Routine 09/25/2025 3:04 PM EST Postablative hypothyroidism VITAMIN D 25 HYDROXY Routine 09/25/2025 3:04 PM EST Vitamin D deficiency COMPREHENSIVE METABOLIC PANEL Routine 09/25/2025 3:04 PM EST Memory changes CBC AND DIFFERENTIAL Routine 09/25/2025 3:04 PM EST Memory changes URINALYSIS WITH REFLEX MICROSCOPIC AND CULTURE Routine 09/25/2025 3:04 PM EST Memory changes CULTURE URINE Routine 09/25/2025 3:04 PM EST Memory changes DXA BONE DENSITY STUDY 1+ SITS AXIAL SKEL Routine 03/30/2021 4:02 PM EDT Disorder of bone, unspecified Disorder of cartilage, unspecified from Last 3 Months or Most Recently Relevant to Health Maintenance Results * (ABNORMAL) Urinalysis with reflex microscopic and culture (09/25/2025 3:04 PM EST) [facility] Specific [place] Urine 1.016 1.003 - 1.030 LAB URINALYSIS - AUTOMATED METHOD 09/25/2025 5:13 PM [facility] pH, Urine 6.5 5.0 - 8.0 pH LAB URINALYSIS - AUTOMATED METHOD 09/25/2025 5:13 PM [facility] Leukocytes, Urine Trace(A) Negative LAB URINALYSIS - AUTOMATED METHOD 09/25/2025 5:13 PM [facility] Nitrite, Urine Negative Negative LAB URINALYSIS - AUTOMATED METHOD 09/25/2025 5:13 PM [facility] Protein, Urine Trace <=Trace mg/dL LAB URINALYSIS - AUTOMATED METHOD 09/25/2025 5:13 PM [facility] Glucose, Urine Negative Negative mg/dL LAB URINALYSIS - AUTOMATED METHOD 09/25/2025 5:13 PM [facility] Ketones, Urine 15(A) Negative mg/dL LAB URINALYSIS - AUTOMATED METHOD 09/25/2025 5:13 PM [facility] Urobilinogen, Urine 1.0 0.2 - 1.0 mg/dL LAB URINALYSIS - AUTOMATED METHOD 09/25/2025 5:13 PM [facility] Bilirubin, Urine Negative Negative LAB URINALYSIS - AUTOMATED METHOD 09/25/2025 5:13 PM [facility] Blood, Urine Negative Negative LAB URINALYSIS - AUTOMATED METHOD 09/25/2025 5:13 PM [facility] RBC, Urine 4 0 - 4 /HPF 09/25/2025 5:13 PM [facility] WBC, Urine 20(H) 0 - 4 /HPF 09/25/2025 5:13 PM [facility] Squamous Epithelial, Urine 10 0 - 60 /LPF 09/25/2025 5:13 PM [facility] Bacteria, Urine Negative Negative /HPF 09/25/2025 5:13 PM EST [facility] Hyaline Casts, Urine 3 0 - 3 /LPF 09/25/2025 5:13 PM EST [facility] Urine Urine specimen obtained by clean catch procedure / Unknown Non-blood Collection / Unknown 09/25/2025 3:04 PM EST 09/25/2025 3:04 PM EST us Cathy NGUYEN LAB URINE ORDERABLES Final Re sult Performing Organization Address City/[facility]/ZIP Co de Phone Number [facility] [address] [place] [address], [place] [phone] * Mo urine culture tube (09/25/2025 3:04 PM EST) Extra Tube Hold for add-ons. 09/25/2025 5:01 PM EST [facility] Comment:Auto resulted. Urine Urine specimen obtained by clean catch procedure / Unknown Non-blood Collection / Unknown 09/25/2025 3:04 PM EST 09/25/2025 3:04 PM EST us Cathy NGUYEN LAB URINE ORDERABLES Final Re sult Performing Organization Address City/[facility]/ZIP Co de Phone Number [facility] [address] [place] [address], [place] [phone] * (ABNORMAL) Thyroid stimulating hormone with reflex to free t4 and free t3 (09/25/2025 3:04 PM EST) TSH 51.05(H) 0.40 - 4.00 mcIU/mL 09/25/2025 5:14 PM EST [facility] Blood Venous blood specimen / Unknown Venipuncture / Unknown 09/25/2025 3:04 PM EST 09/25/2025 3:04 PM EST Christina Alcala MD LAB BLOOD ORDERABLES Final Resul t Performing Organization Address [facility]/ZIP Co de Phone Number [facility] [address] [place] [address], * Free thyroxine with reflex to free triiodothyronine (09/25/2025 3:04 PM EST) Free T4 1.23 0.70 - 1.80 ng/dL 09/25/2025 5:30 PM EST [facility] Blood Venous blood specimen / Unknown Venipuncture / Unknown 09/25/2025 3:04 PM EST 09/25/2025 3:04 PM EST Christina Alcala MD LAB BLOOD ORDERABLES Final Resul t Performing Organization Address [facility]/ZIP Co de Phone Number [facility] [address] [place] [address], [place] [phone] * (ABNORMAL) CBC auto differential (09/25/2025 3:04 PM EST) WBC 9.5 4.8 - 10.8 K/mcL LAB HEMETOLOGY METHOD 09/25/2025 4:32 PM [facility] RBC 4.00 3.80 - 4.80 M/mcL LAB HEMETOLOGY METHOD 09/25/2025 4:32 PM [facility] Hemoglobin 12.9 11.5 - 16.0 g/dL LAB HEMETOLOGY METHOD 09/25/2025 4:32 PM [facility] Hematocrit 38.0 35.0 - 47.0 % LAB HEMETOLOGY METHOD 09/25/2025 4:32 PM [facility] MCV 94.3 79.0 - 98.0 FL LAB HEMETOLOGY METHOD 09/25/2025 4:32 PM [facility] MCH 32.0 27.0 - 32.0 pcg LAB HEMETOLOGY METHOD 09/25/2025 4:32 PM [facility] MCHC 33.9 32.0 - 37.0 g/dL LAB HEMETOLOGY METHOD 09/25/2025 4:32 PM [facility] RDW 14.1 11.0 - 15.0 % LAB HEMETOLOGY METHOD 09/25/2025 4:32 PM [facility] Platelets 205 130 - 400 K/mcL LAB HEMETOLOGY METHOD 09/25/2025 4:32 PM [facility] MPV 10.1 7.0 - 11.0 FL LAB HEMETOLOGY METHOD 09/25/2025 4:32 PM [facility] NRBC 0.0 <1.0 % LAB HEMETOLOGY METHOD 09/25/2025 4:32 PM [facility] NRBC Absolute 0.00 <0.10 K/mcL LAB HEMETOLOGY METHOD 09/25/2025 4:32 PM [facility] Neutrophils Relative 77.8 % LAB HEMETOLOGY METHOD 09/25/2025 4:32 PM [facility] Lymphocytes Relative 12.4 % LAB HEMETOLOGY METHOD 09/25/2025 4:32 PM [facility] Monocytes Relative 8.1 % LAB HEMETOLOGY METHOD 09/25/2025 4:32 PM [facility] Eosinophils Relative 0.6 % LAB HEMETOLOGY METHOD 09/25/2025 4:32 PM [facility] Basophils Relative 0.5 % LAB HEMETOLOGY METHOD 09/25/2025 4:32 PM [facility] Immature Granulocytes Relative 0.6 % LAB HEMETOLOGY METHOD 09/25/2025 4:32 PM [facility] Neutrophils Absolute 7.40(H) 1.50 - 7.00 K/mcL LAB HEMETOLOGY METHOD 09/25/2025 4:32 PM EST [facility] Lymphocytes Absolute 1.18 1.00 - 5.00 K/[facility] LAB HEMETOLOGY METHOD 09/25/2025 4:32 PM EST [facility] Monocytes Absolute 0.77 0.20 - 1.00 K/mcL LAB HEMETOLOGY METHOD 09/25/2025 4:32 PM EST [facility] Eosinophils Absolute 0.06 0.00 - 0.50 K/[facility] LAB HEMETOLOGY METHOD 09/25/2025 4:32 PM EST [facility] Basophils Absolute 0.05 0.00 - 0.20 K/mcL LAB HEMETOLOGY METHOD 09/25/2025 4:32 PM EST [facility] Immature Granulocytes Absolute 0.06(H) 0.00 - 0.03 K/[facility] LAB HEMETOLOGY METHOD 09/25/2025 4:32 PM EST [facility] Blood Venous blood specimen / Unknown Venipuncture / Unknown 09/25/2025 3:04 PM EST 09/25/2025 3:04 PM EST us Cathy NGUYEN LAB BLOOD ORDERABLES Final Re sult [facility] [address] [place] [address], * (ABNORMAL) Vitamin D 25 hydroxy (09/25/2025 3:04 PM EST) Vit D, 25-Hydroxy 10.6(L) 30.0 - 80.0 ng/mL 09/25/2025 5:15 PM EST [facility] Blood Venous blood specimen / Unknown Venipuncture / Unknown 09/25/2025 3:04 PM EST 09/25/2025 3:04 PM EST us Christina Alcala MD LAB BLOOD ORDERABLES Final Resul t [facility] [address] [place] [address], * Culture urine (09/25/2025 3:04 PM EST) [facility] Culture, Urine 10,000-49,000 CFU/mL Mixed urogenital rajinder, no uropathogens present. Suggest repeat specimen if clinically indicated. 09/27/2025 10:42 AM EST [facility] Urine Urine specimen obtained by clean catch procedure / Unknown Non-blood Collection / Unknown 09/25/2025 3:04 PM EST 09/25/2025 5:13 PM EST Cathy NGUYEN LAB MICROBIOLOGY - GENERAL OR DERABLES Final Result Performing Organization Address [facility]/ZIP Co de Phone Number [facility] [address] [place] [address], * (ABNORMAL) Triiodothyronine free (09/25/2025 3:04 PM EST) [facility] T3, Free 157(L) 230 - 420 pcg/dL 09/25/2025 6:54 PM EST [facility] Blood Venous blood specimen / Unknown Venipuncture / Unknown 09/25/2025 3:04 PM EST 09/25/2025 3:04 PM EST Christina Alcala MD LAB BLOOD ORDERABLES Final Resul t [facility] [address] [place] [address], [place] [phone] * (ABNORMAL) Comprehensive metabolic panel (09/25/2025 3:04 PM EST) [facility] Sodium 130(L) 133 - 145 mmol/L 09/25/2025 5:17 PM EST [facility] Potassium 3.2(L) 3.5 - 5.5 mmol/L 09/25/2025 5:17 PM [facility] Chloride 92(L) 96 - 110 mmol/L 09/25/2025 5:17 PM [facility] CO2 27 21 - 32 mmol/L 09/25/2025 5:17 PM [facility] Anion Gap 11 3 - 11 09/25/2025 5:17 PM [facility] Glucose 89 70 - 100 mg/dL 09/25/2025 5:17 PM [facility] BUN 15 5 - 25 mg/dL 09/25/2025 5:17 PM [facility] Creatinine 0.88 0.50 - 1.10 mg/dL 09/25/2025 5:17 PM [facility] eGFR 66 >=60 mL/min/1. 73m2 09/25/2025 5:17 PM [facility] Comment:Calculation based on the Chronic Kidney Disease Epidemiology Collaboration (CKD-EPI) equation refit without adjustment for race. BUN/Creatinine Ratio 17.0 09/25/2025 5:17 PM [facility] Calcium 8.7 8.5 - 10.5 mg/dL 09/25/2025 5:17 PM [facility] AST (SGOT) 43(H) 10 - 42 unit/L 09/25/2025 5:17 PM [facility] ALT (SGPT) 33 10 - 60 unit/L 09/25/2025 5:17 PM [facility] Alkaline Phosphatase 75 42 - 121 unit/L 09/25/2025 5:17 PM [facility] Total Protein 6.8 6.0 - 8.0 g/dL 09/25/2025 5:17 PM [facility] Albumin 4.2 3.2 - 5.0 g/dL 09/25/2025 5:17 PM EST [facility] Total Bilirubin 0.8 0.0 - 1.4 mg/dL 09/25/2025 5:17 PM EST [facility] Blood Venous blood specimen / Unknown Venipuncture / Unknown 09/25/2025 3:04 PM EST 09/25/2025 3:04 PM EST us Cathy NGUYEN LAB BLOOD ORDERABLES Final Re sult [facility] [address] [place] [address], * DXA BONE DENSITY STUDY 1+ SITS [...] should be classified as having osteoporosis. [facility] Department of Internal Medicine recommends using National [...] Pichardo shouldbe classified as having osteoporosis. [facility] Department of Internal Medicine recommendsusing National Osteoporosis [...] Recently Relevant to Health Maintenance Insurance [facility]ICARE [facility] Care Teams Document Preparer Microfilming Relationship Specialty Start Date End Date Christina Alcala MD [address] [place] [address] PCP - General Internal Medicine 11/07/20
--- OUTSIDE RECORDS SUMMARY | 2025-09-27 14:00 | XMS_ITS | Encounter Summary ---
Author Organization [facility] Address [address] [place] [address] Phone Care Team Providers Care Drying And Winding Supervisor Name Role Phone Diomedes Odonnell MD Unavailable [phone] Gavi Black MD Unavailable [phone] Luisito Mckeon MD Unavailable Unavailable Luisito Mckeon MD Primary Care Provider Unavail able Adina Mac RN Unavailable [phone] Luciana Brennan RN Unavailable [email or web address] Alonso Pickett MD Unavailable [phone] Cally Tolliver Unavailable [email or web address] Encounter Details Date Type Department Care Team (Late st Contact Info) Description 07/29/2022 [facility] [place] [address] [address] Social History Tobacco Use Types [...] Description 04/10/2026 8:00 AM EDT Office Visit [facility] Department of Neurology [address] [place] [phone] Luann Cruz MBBS [address] [facility] Neurology Dept., 4th [place] [address] [email or web address] documented as of this encounter Visit Diagnoses Not on filedocumented in this encounter Care Teams Drying And Winding Supervisor Relationship Specialty Start Date End Date Luisito Mckeon MD PCP - General Endocrinology 10/11/17 Diomedes Odonnell MD [address] [place] [address] [address] [place] [address] [email or web address] Thoracic Surgery 07/11/17 Gavi Black MD [address] [place] [id number] [email or web address] Hematology [email or web address] Oncology 07/18/17 Luisito Mckeon MD Primary Care Physician Endocrinology 10/02/17 Adina Mac, RN [address] [place] [phone] [email or web address] Primary Infusion Nurse 11/08/17 Luciana Brennan RN [address] [place] [phone] [email or web address] Primary Infusion Nurse 11/08/17 Alonso Pickett MD [address] [place] [address] Dr [address] [place] [address] Gynecologic Oncology 12/13/18 Cally Tolliver LICSW [address] [place] [address] Dr [address] [place] [phone] [email or web address] Blindstitch Lining [place]eller Oncology 12/29/21 documented as of this encounter Additional Source Comments The information contained in this document represents components of the legal health record. It is not the complete legal health record.[facility]
--- OUTSIDE RECORDS SUMMARY | 2025-09-27 14:00 | XMS_ITS | Encounter Summary ---
Author Organization [facility] Address [address] [place] [address] Phone Care Team Providers Care Cover Marker Name Role Phone Diomedes Odonnell MD Unavailable [phone] Gavi Black MD Unavailable [phone] Luisito Mckeon MD Unavailable Unavailable Luisito Mckeon MD Primary Care Provider Unavail able Adina Mac RN Unavailable [phone] Luciana Brennan RN Unavailable [email or web address] Alonso Pickett MD Unavailable [phone] Cally Tolliver Unavailable Michelle [email or web address] Encounter Details Date Type Department Care Team (Late st Contact Info) Description 01/10/2022 [facility] [place] [facility] [place] [place] [address] [address] Social History Tobacco Use Types [...] Description 04/10/2026 8:00 AM EDT Office Visit [facility] Department of Neurology [address] [place] [address] Luann Cruz MBBS [address] [facility] Neurology Dept., 4th [place] [address] [email or web address] documented as of this encounter Visit Diagnoses Not on filedocumented in this encounter Care Teams Cover Marker Relationship Specialty Start Date End Date Luisito Mckeon MD PCP - General Endocrinology 10/11/17 Diomedes Odonnell MD [address] [place] [address] [address] [place] [address] [email or web address] Thoracic Surgery 07/11/17 Gavi Black MD [address] [place] [phone] [email or web address] Hematology and Oncology 07/18/17 Luisito Mckeon MD Primary Care Physician Endocrinology 10/02/17 Adina Mac, RN [address] [place] [phone] [email or web address] Primary Infusion Nurse 11/08/17 Luciana Brennan RN [address] [place] [phone] [email or web address] Primary Infusion Nurse 11/08/17 Alonso Pickett MD [address] [place] [address] Dr [address] [place] [phone] Gynecologic Oncology 12/13/18 Cally Tolliver LICSW [address] [place] [address] Dr Fi[address] [place] [phone] [email or web address] Animal Husbandry Professor Oncology 12/29/21 documented as of this encounter Additional Source Comments The information contained in this document represents components of the legal health record. It is not the complete legal health record.[facility]
--- OUTSIDE RECORDS SUMMARY | 2025-09-27 14:00 | XMS_ITS | Encounter Summary ---
Author Organization [facility] Address [address] [place] [address] Phone Care Team Providers Care Chocolate Production Machine Operator Name Role Phone Diomedes Odonnell MD Unavailable Gavi Black MD Unavailable [phone] Luisito Mckeon MD Unavailable Unavailable Luisito Mckeon MD Primary Care Provider Unavail able Adina Mac RN Unavailable [phone] Luciana Brennan RN Unavailable OSVALDO BRENNAN@[email or web address] Alonso Pickett MD Unavailable [phone] Cally Tolliver Unavailable Michelle Tolliver@[email or web address] Encounter Details Date Type Department Care Team (Late st Contact Info) Description 12/27/2024 Procedure Pass [facility]'s Optometrist Assistant Center [address] [place] [address] Social History Tobacco Use Types [...] Description 04/10/2026 8:00 AM EDT Office Visit [facility] and [facility]' Department of Neurology [address] [place] [address] Luann Cruz MBBS 60 [facility] Neurology Dept., 4th [place] [address] [email or web address] candace documented as of this encounter Visit Diagnoses Not on filedocumented in this encounter Care Teams Chocolate Production Machine Operator Relationship Specialty Start Date End Date Luisito Mckeon MD PCP - General Endocrinology 10/11/17 Diomedes Odonnell MD [address] [place] [address] 261 [place] [address] YAKELIN@[facility] Thoracic Surgery 07/11/17 Gavi Black MD [address] [place] [address] [email or web address] Hematology and Oncology 07/18/17 Luisito Mckeon MD Primary Care Physician Endocrinology 10/02/17 Adina Mac, RN 44 [place] [address] Osmin@[email or web address] Primary Infusion Nurse 11/08/17 Luciana Brennan, RN 44 [place] [address] XAVIER@[facility] Primary Infusion Nurse 11/08/17 Alonso Pickett MD [address] [place] [address] Dr Fi[address] [place] [address] Gynecologic Oncology 12/13/18 Cally Tolliver LICSW [address] [place] [address] Dr Fiore [address] [place] [address] Alexia@[facility] Assistant Cook Oncology 12/29/21 documented as of this encounter Additional Source Comments The information contained in this document represents components of the legal health record. It is not the complete legal health record.[facility]
--- OUTSIDE RECORDS SUMMARY | 2025-09-27 14:00 | XMS_ITS | Encounter Summary ---
Author Organization [facility] Address [address] [place] [address] Phone Care Team Providers Care Recruitment Consultant Name Role Phone Diomedes Odonnell MD Unavailable [phone] Gavi Black MD Unavailable [phone] Luisito Mckeon MD Unavailable Unavailable Luisito Mckeon MD Primary Care Provider Unavail able Adina Mac RN Unavailable [phone] Luciana Brennan RN Unavailable OSVALDO BRENNAN@[email or web address].[facility] Alonso Pickett MD Unavailable [phone] Cally Tolliver Unavailable Michelle Tolliver@[email or web address] Encounter Details Date Type Department Care Team (Late st Contact Info) Description 06/09/2021 Ancillary Orders Outside Imaging Vito Infante MD [address] [place] [address] [phone] Meka@[email or web address] Social History Tobacco Use Types Packs/Day Years [...] Description 04/10/2026 8:00 AM EDT Office Visit [facility] Department of Neurology 60 [place] [address] Luann Cruz MBBS 60 [facility] Neurology Dept., 4th [place] [address] [email or web address]. candace documented as of this encounter Visit Diagnoses Not on filedocumented in this encounter Care Teams Recruitment Consultant Relationship Specialty Start Date End Date Luisito Mckeon MD PCP - General Endocrinology 10/11/17 Diomedes Odonnell MD [address] [place] [address] YAKELIN@[facility] Thoracic Surgery 07/11/17 Gavi Black MD [address] [place] [address] Matt@[facility] Hematology and Oncology 07/18/17 Luisito Mckeon MD Primary Care Physician Endocrinology 10/02/17 Adina Mac, RN [address] [place] [address] Osmin@[facility] Primary Infusion Nurse 11/08/17 Luciana Brennan, RN [address] [place] [address] XAVIER@[facility] Primary Infusion Nurse 11/08/17 Alonso Pickett MD [address] [place] [address] [address] [place] [address] Gynecologic Oncology 12/13/18 Cally Tolliver LICSW [address] [place] [address] Dr [address] [place] [address] Alexia@[facility] Weather Anchor Oncology 12/29/21 documented as of this encounter Additional Source Comments The information contained in this document represents components of the legal health record. It is not the complete legal health record.[facility]
--- OUTSIDE RECORDS SUMMARY | 2025-09-27 14:00 | XMS_ITS | Encounter Summary ---
Author Organization [facility] Address [address] [place] [address] Phone Care Team Providers Care Campground Hand Name Role Phone Diomedes Odonnell MD Unavailable Gavi Black MD Unavailable [phone] Luisito Mckeon MD Unavailable Unavailable Luisito Mckeon MD Primary Care Provider Unavail able Adina Mac RN Unavailable [phone] Luciana Brennan RN Unavailable OSVALDO BRENNAN@[email or web address] Alonso Pickett MD Unavailable [phone] Cally Tolliver Unavailable Michelle Tolliver@[facility] Encounter Details Date Type Department Care Team (Late st Contact Info) Description 04/28/2025 Procedure Pass [facility] [place] [address] [address] Social History Tobacco Use Types Packs/Day Years [...] of Assessment Author No 08/19/2017 7:47 AM Pircilla Denson PA-C * Patient has serious difficulty [...] Description 04/10/2026 8:00 AM EDT Office Visit [facility] Department of Neurology 60 [place] [address] Luann Cruz MBBS 60 [facility] Neurology Dept., 4th [place] [address] [email or web address]@[email or web address] candace documented as of this encounter Visit Diagnoses Not on filedocumented in this encounter Care Teams Campground Hand Relationship Specialty Start Date End Date Luisito Mckeon MD PCP - General Endocrinology 10/11/17 Diomedes Odonnell MD [address] [place] [address] YAKELIN@[facility] Thoracic Surgery 07/11/17 Gavi Black MD [address] [place] [address] Matt@[facility] Hematology and Oncology 07/18/17 Luisito Mckeon MD Primary Care Physician Endocrinology 10/02/17 Adina Mac, RN [address] [place] [address] Osmin@[facility] Primary Infusion Nurse 11/08/17 Luciana Brennan, RN [address] [place] [address] XAVIER@[facility] Primary Infusion Nurse 11/08/17 Alonso Pickett MD [address] [place] [address] Dr Fi[address] [place] [address] Gynecologic Oncology 12/13/18 Cally Tolliver LICSW [address] [place] [address] Dr Fiore [address] [place] [address] Alexia@[facility] .[facility] Sas Programmer Oncology 12/29/21 documented as of this encounter Additional Source Comments The information contained in this document represents components of the legal health record. It is not the complete legal health record.[facility]
--- OUTSIDE RECORDS SUMMARY | 2025-09-27 14:01 | XMS_ITS | Encounter Summary ---
Author Organization [facility] Address [address] [place] [address] Phone Care Team Providers Care Floor Waxer Name Role Phone Diomedes Odonnell MD Unavailable [phone] Gavi Black MD Unavailable [phone] Luisito Mckeon MD Unavailable Unavailable Luisito Mckeon MD Primary Care Provider Unavail able Adina Mac RN Unavailable [phone] Luciana Brennan RN Unavailable OSVALDO BRENNAN@[facility].[email or web address] Alonso Pickett MD Unavailable [phone] Cally Tolliver Unavailable Michelle Tolliver@[facility].[email or web address] Encounter Details Date Type Department Care Team (Late st Contact Info) Description 03/18/2025 Procedure Pass [facility] [address] [place] [address] Social History Tobacco Use Types Packs/Day Years [...] Description 04/10/2026 8:00 AM EDT Office Visit [facility] Department of Neurology 60 [place] [address] Luann Cruz MBBS 60 [facility] Neurology Dept., 4th [place] [address] [email or web address]@[email or web address] candace documented as of this encounter Visit Diagnoses Not on filedocumented in this encounter Care Teams Floor Waxer Relationship Specialty Start Date End Date Luisito Mckeon MD PCP - General Endocrinology 10/11/17 Diomedes Odonnell MD [address] [place] [address] YAKELIN@[facility] Thoracic Surgery 07/11/17 Gavi Black MD [address] [place] [address] Matt@[email or web address] Hematology and Oncology 07/18/17 Luisito Mckeon MD Primary Care Physician Endocrinology 10/02/17 Adina Mac, RN [address] [place] [address] [email or web address] Primary Infusion Nurse 11/08/17 Luciana Brennan, RN 44 [place] [address] XAVIER@[facility] Primary Infusion Nurse 11/08/17 Alonso Pickett MD [address] [place] [address] [address] [place] [address] Gynecologic Oncology 12/13/18 Cally Tolliver LICSW [address] [place] [address] Dr Fi[address] [place] [address] Alexia@[facility] .[facility] Welcome Center Attendant Oncology 12/29/21 documented as of this encounter Additional Source Comments The information contained in this document represents components of the legal health record. It is not the complete legal health record.[facility]
--- OUTSIDE RECORDS SUMMARY | 2025-09-27 14:01 | XMS_ITS | Encounter Summary ---
Author Organization [facility] Address [address] [place] [address] Phone Care Team Providers Care Stull Hewer Name Role Phone Diomedes Odonnell MD Unavailable [phone] Gavi Black MD Unavailable [phone] Kenn Hennessy MD Unavailable [phone] Luisito Mckeon MD Unavailable Unavailable Masha Garcia RN Unavailable edward@ [facility] Luisito Mckeon MD Primary Care Provider Unavail able Adina Mac RN Unavailable [phone] Luciana Brennan RN Unavailable OSVALDO BRENNAN@[email or web address] Alonso Pickett MD Unavailable [phone] Cally Tolliver Unavailable Michelle Tolliver@[email or web address] Encounter Details Date Type Department Care Team (Late st Contact Info) Description 10/11/2017 Procedure Pass [facility], [facility] [place] [address] [facility], Floor [address]1 [place] [address] Social History Tobacco Use Types Packs/Day Years [...] Office Visit [facility]'s Department of Neurology [address] [place] [address] Luann Cruz MBBS 60 [facility] Neurology Dept., 4th [place] [address] [email or web address]. candace documented as of this encounter Visit Diagnoses Not on filedocumented in this encounter Care Teams Stull Hewer Relationship Specialty Start Date End Date Luisito Mckeon MD PCP - General Endocrinology 10/11/17 Diomedes Odonnell MD [address] [place] [address] 261 [place] [address] YAKELIN@[facility] Thoracic Surgery 07/11/17 Gavi Black MD [address] [place] [address] [email or web address] Hematology and Oncology 07/18/17 Kenn Hennessy MD [address] [place] [address] Internal Medicine 10/02/17 01/24/18 Luisito Mckeon MD Primary Care Physician Endocrinology 10/02/17 Masha Garcia, RN [address] [place] [address] [email or web address] Primary Infusion Nurse 10/09/17 11/07/17 Adina Mac, RN 44 [place] [address] Osmin@[facility] Primary Infusion Nurse 11/08/17 Luciana Brennan, RN 44 [place] [address] XAVIER@[facility] Primary Infusion Nurse 11/08/17 Alonso Pickett MD [address] [place] [address] Dr Fiore [address] [place] [address] Gynecologic Oncology 12/13/18 Cally Tolliver LICSW [address] [place] [address] Dr Fiore [address] [place] [address] Alexia@[email or web address] Commercial Construction Superintendent Oncology 12/29/21 documented as of this encounter Additional Source Comments The information contained in this document represents components of the legal health record. It is not the complete legal health record.[facility]
--- OUTSIDE RECORDS SUMMARY | 2025-09-27 14:01 | XMS_ITS | Encounter Summary ---
Author Organization [facility] Address [address] [place] [address] Phone Care Team Providers Care Appeals Representative Name Role Phone Diomedes Odonnell MD Unavailable Gavi Black MD Unavailable [phone] Luisito Mckeon MD Unavailable Unavailable Luisito Mckeon MD Primary Care Provider Unavail able Adina Mac RN Unavailable [phone] Luciana Brennan RN Unavailable OSVALDO BRENNAN@[facility].[place] Alonso Pickett MD Unavailable [phone] Cally Tolliver Unavailable Michelle Tolliver@[facility] Encounter Details Date Type Department Care Team (Late st Contact Info) Description 09/23/2025 Social Work Social Work Department, [facility] [place] [address] [place] [address] Precious Cowart LICSW 35 [place] [address] [email or web address] Social History Tobacco Use Types Packs/Day Years [...] Progress Notes * Precious Cowart LICSW - 09/23/2025 1:47 PM EST Social Work Progress Note Date/Time of contact: 09/23/2025 / Contact with: patient, Lashawn Gudino Location: Phone Primary Language: Dutch Skidway Worker/IPOP used: Not Applicable, patient's primary language is Dutch Narrative/intervention: Lashawn Gudino (preferred name Lashawn) is a Single, 80 y.o. year old female with a lung cancer diagnosis. Themes Discussed: SW received call from patient's son Sim. Lashawn has been having worsening confusion in the afternoons and he was on his way to check on her. He called again with Lashawn on the phone, who appeared distressed but was unable to pinpoint the cause of her distress. SW lauded Lashawn's continued compliance with her UTI medication and her hydration. In terms of next steps, they are meeting with her PCP on and SW encouraged Sim to bring up this worsening confusion, worrying that she may be experiencing some delirium. SW also encouraged Sim to ask if her PCP has a social worker school,as well as VNA. Plan: SW will continue to remain available for support as needed. Lashawn was encouraged to reach this sheet writer for support if issues or concerns arise and was provided with SW contact information. Will collaborate with interdisciplinary care team to support goals of care. Unless otherwise noted, patient/family is in agreement with this plan. ASHLEE Sousa, APHSW-C Clinical Exhaust And Muffler Repairer Pronouns: she/her/hers [facility] [address] [address] If you are reading this note, there [...] Description 04/10/2026 8:00 AM EDT Office Visit [facility] Department of Neurology 60 [place] [address] Luann Cruz MBBS [address] [facility] Neurology Dept., 4th [place] [address] [email or web address] [place] documented as of this encounter Visit Diagnoses Not on filedocumented in this encounter Care Teams Appeals Representative Relationship Specialty Start Date End Date Luisito Mckeon MD PCP - General Endocrinology 10/11/17 Diomedes Odonnell MD [address] [place] [address] YAKELIN@[facility] Thoracic Surgery 07/11/17 Gavi Black MD [address] [place] [address] [email or web address] Hematology and Oncology 07/18/17 Luisito Mckeon MD Primary Care Physician Endocrinology 10/02/17 Adina Mac, RN [address] [place], [place] Osmin@[facility]. [facility] Primary Infusion Nurse 11/08/17 Luciana Brennan, RN [address] [place], [place] XAVIER@[facility] Primary Infusion Nurse 11/08/17 Alonso Pickett MD [address] [place] [address] [place] [address] Gynecologic Oncology 12/13/18 Cally Tolliver, [address] Fiore [address] [place] [address] Alexia@[facility] .[facility] Exhaust And Muffler Repairer Oncology 12/29/21 documented as of this encounter Additional Source Comments The information contained in this document represents components of the legal health record. It is not the complete legal health record.[facility]
--- OUTSIDE RECORDS SUMMARY | 2025-09-27 14:01 | XMS_ITS | Encounter Summary ---
Author Organization [facility] Address [address] [place] [address] Phone Care Team Providers Care Oiler Helper Name Role Phone Diomedes Odonnell MD Unavailable [phone] Gavi Black MD Unavailable [phone] Luisito Mckeon MD Unavailable Unavailable Luisito Mckeon MD Primary Care Provider Unavail able Adina Mac RN Unavailable [phone] Luciana Brennan RN Unavailable OSVALDO BRENNAN@[facility].[email or web address].[facility] Alonso Pickett MD Unavailable [phone] Cally Tolliver Unavailable Michelle Tolliver@[facility] Encounter Details Date Type Department Care Team (Late st Contact Info) Description 09/25/2023 Procedure Pass [facility] [place] [facility] [place] [place] [address] [address] Social History Tobacco Use Types Packs/Day Years [...] Description 04/10/2026 8:00 AM EDT [facility] Department of Neurology [address] [place] [address] Luann Cruz MBBS 60 [facility] Neurology Dept., 4th [place] [address] [email or web address] candace documented as of this encounter Visit Diagnoses Not on filedocumented in this encounter Care Teams Oiler Helper Relationship Specialty Start Date End Date Luisito Mckeon MD PCP - General Endocrinology 10/11/17 Diomedes Odonnell MD [address] [place] [address] 261 [place] [address] YAKELIN@[facility] Thoracic Surgery 07/11/17 Gavi Black MD [address] [place] [address] [email or web address] Hematology and Oncology 07/18/17 Luisito Mckeon MD Primary Care Physician Endocrinology 10/02/17 Adina Mac, RN 44 [place] [address] Osmin@[facility] Primary Infusion Nurse 11/08/17 Luciana Brennan, RN 44 [place] [address] XAVIER@[facility] Primary Infusion Nurse 11/08/17 Alonso Pickett MD [address] [place] [address] Dr Fiore [address] [place] [address] Gynecologic Oncology 12/13/18 Cally Tolliver LICSW [address] [place] [address] Dr Fiore [address] [place] [address] Alexia@[facility] .[facility] Recyclable Materials Distributor Oncology 12/29/21 documented as of this encounter Additional Source Comments The information contained in this document represents components of the legal health record. It is not the complete legal health record.[facility]
--- OUTSIDE RECORDS SUMMARY | 2025-09-27 14:01 | XMS_ITS | Encounter Summary ---
Author Organization [facility] Address [address] [facility] [address] [place] [address] Phone Care Team Providers Care Technical Services Assistant Name Role Phone Diomedes Odonnell MD Unavailable [phone] Gavi Black MD Unavailable [phone] Luisito Mckeon MD Unavailable Unavailable Luisito Mckeon MD Primary Care Provider Unavail able Adina Mac RN Unavailable [phone] Luciana Brennan RN Unavailable OSVALDO BRENNAN@[facility] Alonso Pickett MD Unavailable [phone] Cally Tolliver Unavailable Michelle Tolliver@[facility] Encounter Details Date Type Department Care Team (Late st Contact Info) Description 01/25/2018 Procedure Pass [facility] Women[facility] Radiology 75 [facility] [place] [address] Social History Tobacco Use Types Packs/Day Years [...] Description 04/10/2026 8:00 AM EDT Office [facility] Department of Neurology [address] [place] [address] Luann Cruz MBBS 60 [facility] Neurology Dept., 4th [place] [address] [email or web address] candace documented as of this encounter Visit Diagnoses Not on filedocumented in this encounter Care Teams Technical Services Assistant Relationship Specialty Start Date End Date Luisito Mckeon MD PCP - General Endocrinology 10/11/17 Diomedes Odonnell MD [address] [place] [address] YAKELIN@[facility] Thoracic Surgery 07/11/17 Gavi Black MD [address] [place] [address] Matt@[email or web address] Hematology and Oncology 07/18/17 Luisito Mckeon MD Primary Care Physician Endocrinology 10/02/17 dAina Mac, RN [address] [place] [address] Osmin@[facility] Primary Infusion Nurse 11/08/17 Luciana Brennan RN [address] [place] [address] XAVIER@[facility] Primary Infusion Nurse 11/08/17 Alonso Pickett MD [address] [place] [address] [place] [address] Gynecologic Oncology 12/13/18 Cally Tolliver LICSW [address] [place] [address] Dr [address] [place] [address] Alexia@[facility] Carpenter Helper Oncology 12/29/21 documented as of this encounter Additional Source Comments The information contained in this document represents components of the legal health record. It is not the complete legal health record.[facility]
--- OUTSIDE RECORDS SUMMARY | 2025-09-27 14:01 | XMS_ITS | Encounter Summary ---
Author Organization [facility] Address [address] [facility] [address] [place] [address] Phone Care Team Providers Care Typesetter Apprentice Name Role Phone Diomedes Odonnell MD Unavailable [phone] Gavi Black MD Unavailable [phone] Kenn Hennessy MD Unavailable [phone] Luisito Mckeon MD Unavailable Unavailable Masha Garcia RN Unavailable [email or web address] Luisito Mckeon MD Primary Care Provider Unavail able Adina Mac RN Unavailable [phone] Luciana Brennan RN Unavailable [email or web address] Alonso Pickett MD Unavailable [phone] Cally Tolliver Unavailable [email or web address] Encounter Details Date Type Department Care Team (Late st Contact Info) Description 10/11/2017 Procedure Pass [facility]ha L[facility] Imaging Department, [facility] [place] [address] [place] [address] Social History Tobacco Use Types Packs/Day Years [...] Description 04/10/2026 8:00 AM EDT Office Visit [facility] Department of Neurology [address] [place] [address] Luann Cruz MBBS [address] [facility] Neurology Dept., 4th [place] [address] [email or web address] documented as of this encounter Visit Diagnoses Not on filedocumented in this encounter Care Teams Typesetter Apprentice Relationship Specialty Start Date End Date Luisito Mckeon MD PCP - General Endocrinology 10/11/17 Diomedes Odonnell MD [address] [place] [address] [address] [place] [address] [email or web address] Thoracic Surgery 07/11/17 Gavi Black MD [address] [place] [address] [email or web address] Hematology and Oncology 07/18/17 Kenn Hennessy MD [address] [place] [address] Internal Medicine 10/02/17 01/24/18 Luisito Mckeon MD Primary Care Physician Endocrinology 10/02/17 Masha Garcia, RN [address] [place] [address] [email or web address] Primary Infusion Nurse 10/09/17 11/07/17 Adina Mac, RN [address] [place] [address] [email or web address] Primary Infusion Nurse 11/08/17 Luciana Brennan, RN [address] [place] [address] [email or web address] Primary Infusion Nurse 11/08/17 Alonso Pickett MD [address] [place] [address] [address] [place] [address] Gynecologic Oncology 12/13/18 Cally Tolliver LICSW [address] [place] [address] [address] [place] [address] [email or web address] Oncology 12/29/21 documented as of this encounter Additional Source Comments The information contained in this document represents components of the legal health record. It is not the complete legal health record.[facility]
--- OUTSIDE RECORDS SUMMARY | 2025-09-27 14:01 | XMS_ITS | Encounter Summary ---
Author Organization [facility] Address [address] [place] [address] Phone Care Team Providers Care Hog Feeder Name Role Phone Diomedes Odonnell MD Unavailable Gavi Black MD Unavailable [phone] Luisito Mckeon MD Unavailable Unavailable Luisito Mckeon MD Primary Care Provider Unavail able Adina Mac RN Unavailable [phone] Luciana Brennan RN Unavailable [email or web address] Alonso Pickett MD Unavailable [phone] Cally Tolliver Unavailable [email or web address] Encounter Details Date Type Department Care Team (Late st Contact Info) Description 01/21/2025 Procedure Pass [facility] Endoscopy Department [address] [place] [address] Social History Tobacco Use Types Packs/Day Years [...] Assessment Author No 08/19/2017 7:47 AM Pricilla Dneson PA-C * Patient has serious difficulty dressing [...] Description 04/10/2026 8:00 AM EDT Office Visit [facility] Department of Neurology [address] [place] [address] Luann Cruz MBBS [address] [facility] Neurology Dept., 4th [place] [address] [email or web address] documented as of this encounter Visit Diagnoses Not on filedocumented in this encounter Care Teams Hog Feeder Relationship Specialty Start Date End Date Luisito Mckeon MD PCP - General Endocrinology 10/11/17 Diomedes Odonnell MD [address] [place] [address] [address] [place] [address] [email or web address] Thoracic Surgery 07/11/17 Gavi Black MD [address] [place] [address] [email or web address] Hematology and Oncology 07/18/17 Luisito Mckeon MD Primary Care Physician Endocrinology 10/02/17 Adina Mac, RN [address] [place] [address] [email or web address] Primary Infusion Nurse 11/08/17 Luciana Brennan, RN [address] [place] [address] [email or web address] Primary Infusion Nurse 11/08/17 Alonso Pickett MD [address] [place] [address] Dr [address] [place] [address] Gynecologic Oncology 12/13/18 Cally Tolliver LICSW [address] [place] [address] Dr [address] [place] [address] [email or web address] Communications Clerk Oncology 12/29/21 documented as of this encounter Additional Source Comments The information contained in this document represents components of the legal health record. It is not the complete legal health record.[facility]
[2025-09-27 14:03] LABS: Appearance Urine Clear; Glucose Urine UA Negative (Negative); PH 7.5 (5.0-9.0); Specific Gravity - Urine 1.010 (1.005-1.025)
--- NOTE | 2025-09-27 14:12 | PC.NURSE ---
Report recieved from Antonietta MELGOZA. Pt moved from ED14.
[2025-09-27 14:14] LABS: Alanine Aminotransferase 37 U/L (0-31); Albumin Level 4.8 g/dL (3.5-5.0); Alkaline Phosphatase 74 U/L (39-117); Anion Gap 14 (12-20); Aspartate Amino Transferase 44 U/L (5-31); Blood Urea Nitrogen 12 mg/dL (9-16); Calcium 9.1 mg/dL (8.4-10.2); Carbon Dioxide 25 mmol/L (22-29); Chloride 98 mmol/L (96-108); Creatinine Clr Calc Pharmacy 46.2; Estimated Glomerular Filt Rate > 60; Lipase 24 U/L (8-78); Potassium 3.5 mmol/L (3.3-5.1); Sodium 133 mmol/L (135-145); Total Protein 7.0 g/dL (6.5-8.0)
--- NOTE | 2025-09-27 14:38 | PC.NURSE ---
Pt is axox3. Able to follow thread in conversation and recal recent events with moderate accuracy according to sons. SOns are concerned for overal decline in ADL's nutrition, willingness to comply with medical/cognitive testing. When this RN approached subject of cognative testing pt gave this RN the middle finger. Pt is steady on feet and was wandering just to the BR. Given a elopement bracelet
[2025-09-27 17:02] VITALS: BP 156/84; PULSE 65; RESP 18; TEMP 36.6; O2SAT 98
--- NOTE | 2025-09-27 17:04 | PC.NURSE ---
Assumed care of patient at this time. Pt awake and alert, oriented. Requesting to be discharged. Explained to patient she is unable to leave at this time. Pt ambulatory with steady gait to bathroom then returned to bed. Pt sons at bedside. T camera form faxed to set up camera.
--- NOTE | 2025-09-27 17:29 | PC.NURSE ---
Patient's sons Sim ([phone]) and Per ([phone]) would like to be notified for Case Management eval.
--- NOTE | 2025-09-27 17:51 | PC.NURSE ---
Verified med dose timing with patient's son. States normally take Tagrisso in evening not in AM. Pharmacy notified, med timing to be changed in MAR
--- NOTE | 2025-09-27 17:54 | PHA.MEDREC ---
Pharmacy Consult ? Medication Reconciliation Pharmacy has completed the medication reconciliation. Reviewed med rec done by nursing, matches claims
--- NOTE | 2025-09-28 02:29 | PC.NURSE ---
0200 Patient woke from sleep, ambulated to bathroom one assist as gait and balance are unsteady. Pt gown and pants changed per patient request. Toothbrush/toothpaste provided as patient brushed her own teeth and mouth guard removed and cleaned. Patient is pleasantly confused at this time, cooperative with care. Denies SI symptoms at this time. RR even and non labored. Pt reports she has had her right lung removed and LS are CTA. Pt does have congested nonproductive cough noted with sleep. No distress noted. HR regular. Abdomen normal bowel sounds present, pt passing flatus and voiding clear yellow urine. Warm blanket provided. Call button available, bed locked with fall alarm on and Camera at bedside.
[2025-09-28 06:05] VITALS: BP 135/68; PULSE 73; RESP 16; TEMP 37; O2SAT 96
--- NOTE | 2025-09-28 08:45 | PC.NURSE ---
assumed care of pt at 0645. pt mostly alert but somewhat disoriented - unable to recall date/why she is in the ED. vss and up to date. pt ate 100% of breakfast w/o difficulty. pt medicated per provider order. swallows pills whole w/ water w/o difficulty. pt easily agitated as she states i don't know what the fuck i'm doing here this is fucking ridiculous amongst other statements. although agitated, pt is easy to redirect. currently denies SI/HI. stand-by assist OOB and to the restroom. pt voided a moderate amount of clear/pale yellow/non-foul smelling urine. pt assisted back into bed/repositioned to comfort. otherwise on RA w/o difficulty. no sob/wob noted. respirations even/unlabored. pending CM evaluation. bed alarm on for safety precautions. plan of care ongoing. call leahy placed within reach.
--- NOTE | 2025-09-28 09:41 | PC.NURSE ---
Addendum entered by Jessica Messer RN 09/28/25 10:27: pt continues to pend psychiatry evaluation at this time. family remains bedside. plan of caer ongoing. Original Note: CM bedside for evaluation. family remains present. plan of care ongoing.
--- NOTE | 2025-09-28 10:29 | MHC.CM.ED ---
Received consult for assessment of d/c planning needs: Met with pt along with her two sons and daughter in law. Pt lives alone in a two story home. Sons state she is not safe, forgets to eat and spends most days in bed. They state they need to remind her several times daily to eat, shower, dress, etc. Pt angry at times and requesting to return to home. Family very concerned with pt's ability to make decisions for herself and her unawareness of personal and safety needs. Advised family on private services, [facility] ([facility]) and assisted living. Family feels pt is not capable of decision making and are requesting an eval. Pt stated she feels able to function at home but did admit to periods of confusion. Psych and OT evals in place. Pt able to ambulate to BR without assistive device: RN notes show a steady gait. Pt will likely return to home tomorrow after eval.
--- NOTE | 2025-09-28 10:55 | PC.NURSE ---
psychiatry consult being completed at this time.
--- NOTE | 2025-09-28 11:08 | PM.PSYCN ---
History of Present Illness Date of Service: 09/28/25 Chief Complaint: Crisis Requesting physician: Go Gilman Discussed with referring provider: Yes Sources of Information: patient interviewed and chart reviewed Additional Sources of Information: One of her sons HPI Narrative: 80-year-old female with medical history of lung cancer, hypothyroidism, mild cognitive impairment, presents to the ED accompanied by her 2 sons and [id number] due to increased confusion, and agitation. The patients son states she had a recent UTI and finished her antibiotic therapy 2 days ago on . Patient's son state that they thought her agitation and confusion would improve however she has finished her antibiotic and her mental status has gotten worse. Patient's son states that they have had to go over to her house daily as she is not caring for herself, not getting out of bed, not eating. Patient's son states that last month the patient was coming over for dinner once or twice a week, and driving to [employer] part of her routine however she is not doing those things anymore. Patient's son stated while they were talking today she stated she wanted to kill herself and was making gestures to cut her wrists. Patient states that she is angry with her sons, and that this is all ?bullshit? and she feels fine. Denies SI, HI, AH, VH chest pain, shortness of breath, fevers, abdominal pain, nausea, vomiting complaint: increased agitation, confusion According to 1 of her sons who lives locally she has been having problems with her memory for several years but had been somewhat functional but she has not allowed them into her apartment for years but when in need she calls them constantly. After her recent UTI her functioning level has decreased considerably and cognitively her deficits are more visible. She does still have a car and keys to her car but fortunately has not been driving. No prior psychiatric history. No suicidal ideations or behaviors. She was able to give some pertinent history but had difficulties with details. She has very little sense about her current situation, capacity and level of functioning Past Psychiatric History: None Medical Evaluation Reviewed: Yes Personal & Social History: She lives here in her own apartment, has access to her car but fortunately has not been driving. 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 She has 3 children and has little to no contact with 1 of a but does have contact with to. Her is . Review of Systems Review of Systems Yes Unobtainable due to mental status [facility] Medical History (Updated 09/28/25 @ 11:17 by Guadalupe Arredondo MD) Lung cancer Diagnostics Vital Signs (24Hr): Vital Signs - 24 hr 09/27/25 13:26 09/27/25 17:02 09/28/25 06:05 Temperature 98 F 97.8 F 98.6 F Pulse Rate 70 65 73 Respiratory Rate 18 18 16 Blood Pressure 208/113 H 156/84 H 135/68 Pulse Oximetry 99 98 96 Oxygen Delivery Method Room Air Room Air Room Air BMI result Body Mass Index 19.0 Labs 09/27/25 13:49 09/27/25 13:49 Labs: Laboratory Results - last 48 hr 09/27/25 13:49 WBC 7.7 RBC 4.29 Hgb 14.0 Hct 40.0 MCV 93.2 MCH 32.6 MCHC 35.0 RDW 14.2 Plt Count 190 MPV 9.2 L Immature Gran % (Auto) 0.4 Neut % (Auto) 76.4 H Lymph % (Auto) 13.3 L [place] % (Auto) 8.6 Eos % (Auto) 0.8 Baso % (Auto) 0.5 Lymph # (Auto) 1.0 L [place] # (Auto) 0.7 Eos # (Auto) 0.1 Baso # (Auto) 0.0 Abs Immat Gran (auto) 0.03 Absolute Neuts (auto) 5.9 Absolute Nucleated RBC 0.000 Nucleated RBC % (auto) 0.0 Sodium 133 L Potassium 3.5 Chloride 98 Carbon Dioxide 25 Anion Gap 14 BUN 12 Creatinine 0.71 Estim Creat Clear Calc 46.2 Estimated GFR > 60 Random Glucose 114 Calcium 9.1 Total Bilirubin 0.8 AST 44 H ALT 37 H Alkaline Phosphatase 74 Total Protein 7.0 Albumin 4.8 Lipase 24 Urine Color Yellow Urine Appearance Clear Urine pH 7.5 Ur Specific [place] 1.010 Urine Protein Negative Urine Glucose (UA) Negative Urine Ketones Negative Urine Blood Negative Urine Nitrite Negative Ur Leukocyte Esterase Negative Urine RBC 0-2 Urine WBC 0-5 Ur Squamous Epith Cells 0-2 Urine Bacteria None Seen Hyaline Casts 0-2 Mental Status Exam Mental Status Exam Narrative: In today's visit, she was laying comfortably in bed but screaming for food even though she had a full breakfast. She is alert, oriented x3 with some effort. Speech is loud. Moderate eye contact. No acute signs of psychosis. No AVH. Denies any suicidal or homicidal ideations. Cognitively she has immediate, intermediate memory deficits. Thought processes are goal directed. Judgment is impaired. I could not assess mobility Medications Medications Current Medications Escitalopram Oxalate (Escitalopram Oxalate 10 Mg Tablet) 10 mg PO DAILY [facility] Last Admin: 09/28/25 08:10 Dose: 10 mg Folic Acid (Folic Acid 1 Mg Tablet) 1 mg PO DAILY [facility] Last Admin: 09/28/25 08:10 Dose: 1 mg Levothyroxine Sodium (Levothyroxine Sodium 88 Mcg Tablet) 88 mcg PO DAILY@0600 [facility] Last Admin: 09/28/25 06:09 Dose: 88 mcg Non-Formulary Medication (Osimertinib [Tagrisso]) 40 mg PO DAILY@1800 [facility] Last Admin: 09/27/25 18:13 Dose: 40 mg Vitamin D (Cholecalciferol (Vitamin D3) 25 Mcg Tablet) 25 mcg PO DAILY [facility] Last Admin: 09/28/25 08:10 Dose: 25 mcg Allergies Allergies Allergy/AdvReac Type Severity Reaction Status Date / Time Penicillins AdvReac Severe Anaphylaxis Verified 09/27/25 13:29 Assessment & Plan Assessment & Plan (1) Alzheimer dementia: Status: Acute Code(s): G30.9 - Alzheimer's disease, unspecified; F02.80 - Dementia in other diseases classified elsewhere, unspecified severity, without behavioral disturbance, psychotic disturbance, mood disturbance, and anxiety Plan In conclusion based on my evaluation, talking to her son and available information I do not feel she has capacity to make informed decisions pertaining to her disposition and care. Case management has been involved. I do not feel that she can live alone. She would need 24 hour care at this time. Whether the family is willing and able to provide that is something to explore by case management otherwise placement might be the best option Total time managing care of this patient today ____ minutes.
[2025-09-28] MEDS: OLANZapine ODT 10 MG TAB.RAPDIS TRANSLINGU (13:56)
--- NOTE | 2025-09-28 13:59 | PC.NURSE ---
pt becoming more increasingly agitated/aggressive towards staff. screaming out profanity at staff members as well as other patient's and family members. difficult to redirect. provider notified/aware. pt medicated per provider order. effectiveness pending.
[2025-09-28 14:00] VITALS: BP 138/77; PULSE 66; RESP 16; TEMP 37.3; O2SAT 98
[2025-09-28 20:11] VITALS: BP 135/74; PULSE 69; RESP 16; TEMP 36.5; O2SAT 98
--- NOTE | 2025-09-28 23:43 | PC.NURSE ---
ambulated w/ 1 assist to bathroom, incont of urine. new gown and bed linen
--- NOTE | 2025-09-29 10:37 | MHC.CM.ED ---
Patient remains in ER overflow. OT eval ordered and pending for MOCA & ACL assessment. Received notification patient is active with [facility]. Return referral made in [facility]. Continue to monitor for d/c needs.
--- NOTE | 2025-09-29 13:17 | MHC.CM.ED ---
MOCA=11/04. ACL=3.4. Met with patient and sons, Sim and Per, in regards to discharge planning. 24/7 supervision is recommended at this time. Patient lives in a townhouse that is 2 floors and laundry is in the basement. Sim and Per do not have the ability to provide 24/7 supervision. Patient doesn't feel she needs 24/7 supervision. Resources on live-in home health aides, private pay home health aide companies and assisted living provided. Patient will remain in ER overnight. Quoc will discuss what is a reasonable and safe d/c plan for patient. Continue to monitor for d/c needs.
[2025-09-29 13:38] VITALS: BP 127/76; PULSE 64; RESP 18; TEMP 36.6; O2SAT 97
--- NOTE | 2025-09-29 15:10 | PC.NURSE ---
assumed care of patient at 0700. patient alert to self and place only currently calm and cooperative, but intermittently becomes agitated and verbally abusive to staff. patient evaluated by PT/ OT today currently awaiting dispo plan. pt remains on room air and denies any pain at this time.
[2025-09-30 00:24] VITALS: BP 143/87
[2025-09-30 08:13] VITALS: BP 148/86; PULSE 58; RESP 16; TEMP 36.6; O2SAT 97
--- NOTE | 2025-09-30 11:30 | MHC.CM.ED ---
Patient remains in ER overflow. Chloe MELGOZA from [facility] on-site to assess patient. Facility can accept patient. Discharge planned for 12pm. Patient's son will transport patient. Patient, Sim Albarado Caitlin RN and Niurka NGUYEN aware. Continue to monitor for d/c needs.
[2025-09-30 11:39] VITALS: BP 125/89; PULSE 69; RESP 16; TEMP 36; O2SAT 98
[2025-09-30 12:09] VITALS: BP 125/89; PULSE 69; RESP 16; TEMP 36; O2SAT 98
--- OUTSIDE RECORDS SUMMARY | 2025-11-23 19:00 | XMS_ITS | Clinical Summary ---
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 Active 2024-11 00:00: 00 Allergies, Adverse Reactions, Alerts Allergy Name Allergy Type Status Severity Reaction(s) Onset Date Inactive Date Treating Clinician Comments DIPHEHYDRAMI NE Propensity to adverse reactions Active 2024-11 11:21: 28 OXYCODONE-AC ETAMENOPHINE Propensity to adverse reactions Active 2024-11 11:21: 37 PSEUDOEPHEDR INE Propensity to adverse reactions Active 2024-11 11:21: 47 Vital Signs Vital Name Observation Time Observation Value Commen ts Temperature 2025-09-26 12:59:00.000 98.3 [degF] BMI (%) 2025-09-26 12:59:00.000 19 kg/m2 Height 2025-09-26 12:59:00.000 62 [in_us] Pulse 2025-09-26 12:59:00.000 62 /min Respirations 2025-09-26 12:59:00.000 18 /min Weight (lbs) 2025-09-26 12:59:00.000 109 [lb_av] Systolic Blood Pressure 2025-09-26 12:59:00.000 114 mm [Hg] Diastolic Blood Pressure 2025-09-26 12:59:00.000 80 mm [Hg] Plan of Treatment Planned Activity Planned Date Details Comments Future Scheduled Test RN TO OBSE RVE, ASSESS, EVALUATE, AND DEVELOP AN INDIVIDUALIZED PLAN OF CARE. AGENCY MAY ACCEPT ORDERS FROM CONSULTING PHYSICIANS RN TO OBSERVE AND ASSESS, STAVE INSPECTOR/MOSS BLEACHER TO OBSERVE FOR RISK FOR FALLS AND INSTRUCT IN FALL PREVENTION, HOME SAFETY, MEDICATION MANAGEMENT, INFECTION PREVENTION, AND NUTRITION MANAGEMENT. RN/STAVE INSPECTOR/MOSS BLEACHER NURSE MAY PERFORM O2 SATURATION LEVEL ON ADMISSION AND PRN FOR RN TO ASSESS/STAVE INSPECTOR TO OBSERVE PATIENT, WITH NOTIFICATION TO THE PHYSICIAN IF SATURATION IS 90% IN THE ABSENCE OF MORE SPECIFIC PARAMETERS FROM THE PHYSICIAN. AGENCY MAY PERFORM A RESUMPTION OF CARE VISIT FOLLOWING ANY HOSPITAL ADMISSION. RN/STAVE INSPECTOR/MOSS BLEACHER TO MONITOR CO-MORBID CONDITIONS LISTED ON THE PLAN OF CARE AND ANY NEW CONDITIONS THAT PRESENT THEMSELVES DURING THIS EPISODE TO IDENTIFY CHANGES AND INTERVENE TO MINIMIZE COMPLICATIONS. [code = RN TO OBSERVE, ASSESS, EVALUATE, AND DEVELOP AN INDIVIDUALIZED PLAN OF CARE. AGENCY MAY ACCEPT ORDERS FROM CONSULTING PHYSICIANS RN TO OBSERVE AND ASSESS, STAVE INSPECTOR/MOSS BLEACHER TO OBSERVE FOR RISK FOR FALLS AND INSTRUCT IN FALL PREVENTION, HOME SAFETY, MEDICATION MANAGEMENT, INFECTION PREVENTION, AND NUTRITION MANAGEMENT. RN/STAVE INSPECTOR/MOSS BLEACHER NURSE MAY PERFORM O2 SATURATION LEVEL ON ADMISSION AND PRN FOR RN TO ASSESS/STAVE INSPECTOR TO OBSERVE PATIENT, WITH NOTIFICATION TO THE PHYSICIAN IF SATURATION IS 90% IN THE ABSENCE OF MORE SPECIFIC PARAMETERS FROM THE PHYSICIAN. AGENCY MAY PERFORM A RESUMPTION OF CARE VISIT FOLLOWING ANY HOSPITAL ADMISSION. RN/STAVE INSPECTOR/MOSS BLEACHER TO MONITOR CO-MORBID CONDITIONS LISTED ON THE PLAN OF CARE AND ANY NEW CONDITIONS THAT PRESENT THEMSELVES DURING THIS EPISODE TO IDENTIFY CHANGES AND INTERVENE TO MINIMIZE COMPLICATIONS.] Future Scheduled Test MEDICATION MANAGEMENT; RN/STAVE INSPECTOR/MOSS BLEACHER TO REVIEW MEDICATIONS FOR INTERACTIONS, EFFECTIVENESS OF DRUG THERAPY, AND SIGNS/SYMPTOMS OF ADVERSE REACTIONS. MAY INSTRUCT AND REINFORCE MEDICATION TEACHING RELATED TO THE USE OF MEDICATIONS, DOSAGE, FREQUENCY, PURPOSE, SIDE EFFECTS, AND TO REPORT COMPLICATIONS. [code = MEDICATION MANAGEMENT; RN/STAVE INSPECTOR/MOSS BLEACHER TO REVIEW MEDICATIONS FOR INTERACTIONS, EFFECTIVENESS OF DRUG THERAPY, AND SIGNS/SYMPTOMS OF ADVERSE REACTIONS. MAY INSTRUCT AND REINFORCE MEDICATION TEACHING RELATED TO THE USE OF MEDICATIONS, DOSAGE, FREQUENCY, PURPOSE, SIDE EFFECTS, AND TO REPORT COMPLICATIONS.] Future Scheduled Test RISK FOR H OSPITALIZATION; RN TO ASSESS/TEACH, MOSS BLEACHER/STAVE INSPECTOR TO OBSERVE/TEACH PATIENT/CAREGIVER ON RISK FOR HOSPITALIZATION/EMERGENCY ROOM VISITS, TEACH SIGNS AND SYMPTOMS THAT PUT PATIENT AT RISK, WHEN TO NOTIFY NURSE/PHYSICIAN OF COMPLICATIONS/DECLINE, AND WHEN TO CALL 911. [code = RISK FOR HOSPITALIZATION; RN TO ASSESS/TEACH, MOSS BLEACHER/STAVE INSPECTOR TO OBSERVE/TEACH PATIENT/CAREGIVER ON RISK FOR HOSPITALIZATION/EMERGENCY ROOM VISITS, TEACH SIGNS AND SYMPTOMS THAT PUT PATIENT AT RISK, WHEN TO NOTIFY NURSE/PHYSICIAN OF COMPLICATIONS/DECLINE, AND WHEN TO CALL 911.] Future Scheduled Test PAIN MANAG EMENT; RN TO ASSESS AND TEACH, MOSS BLEACHER/STAVE INSPECTOR TO OBSERVE AND TEACH AND PROVIDE EDUCATION ON PAIN MANAGEMENT TECHNIQUES. [code = PAIN MANAGEMENT; RN TO ASSESS AND TEACH, MOSS BLEACHER/STAVE INSPECTOR TO OBSERVE AND TEACH AND PROVIDE EDUCATION ON PAIN MANAGEMENT TECHNIQUES.] Future Scheduled Test FALL REDUC TION MANAGEMENT; RN TO ASSESS AND OBSERVE, STAVE INSPECTOR/MOSS BLEACHER TO OBSERVE FALL RISK FACTORS AND EDUCATE PATIENT/CAREGIVER ON STRATEGIES TO MINIMIZE THE RISK OF FALLING. [code = FALL REDUCTION MANAGEMENT; RN TO ASSESS AND OBSERVE, STAVE INSPECTOR/MOSS BLEACHER TO OBSERVE FALL RISK FACTORS AND EDUCATE PATIENT/CAREGIVER ON STRATEGIES TO MINIMIZE THE RISK OF FALLING.] Future Scheduled Test GENITOURIN MADELINE MANAGEMENT; RN TO ASSESS AND TEACH, STAVE INSPECTOR/MOSS BLEACHER TO OBSERVE AND TEACH RELATED TO ALTERED GENITOURINARY STATUS TO MINIMIZE COMPLICATIONS AND REDUCE HOSPITALIZATION. [code = GENITOURINARY MANAGEMENT; RN TO ASSESS AND TEACH, STAVE INSPECTOR/MOSS BLEACHER TO OBSERVE AND TEACH RELATED TO ALTERED GENITOURINARY STATUS TO MINIMIZE COMPLICATIONS AND REDUCE HOSPITALIZATION.] Future Scheduled Test URINARY TR ACT INFECTION MANAGEMENT; RN/MOSS BLEACHER/STAVE INSPECTOR TO PROVIDE SKILLED TEACHING AND SELF- CARE MANAGEMENT RELATED TO UTI TO MINIMIZE COMPLICATIONS AND REDUCE THE RISK OF HOSPITALIZATION. [code = URINARY TRACT INFECTION MANAGEMENT; RN/MOSS BLEACHER/STAVE INSPECTOR TO PROVIDE SKILLED TEACHING AND SELF- CARE MANAGEMENT RELATED TO UTI TO MINIMIZE COMPLICATIONS AND REDUCE THE RISK OF HOSPITALIZATION.] Goal Patient Goal - TO STAY IN [facility] Goal Provider Goal - A PLAN OF CARE WILL BE ESTABLISHED THAT MEETS THE PATIENT S NEEDS. PATIENT WILL DEMONSTRATE OXYGEN SATURATION WITHIN NORMAL LIMITS OR PATIENT S OPTIMAL LEVEL ESTABLISHED BY THE PHYSICIAN THROUGHOUT CARE. CHANGES TO CO-MORBID CONDITIONS AND ANY NEW CONDITIONS WILL BE IDENTIFIED AND REPORTED TO THE PHYSICIAN. Goal Provider Goal - PATIENT/CAREGIVER TO VERBALIZE, AND CONSISTENTLY DEMONSTRATE EFFECTIVE, SAFE MANAGEMENT OF MEDICATION INCLUDING KNOWLEDGE OF EFFECTIVENESS, POTENTIAL SIDE EFFECTS AND DRUG REACTIONS AND WHEN TO CONTACT THE APPROPRIATE CARE PROVIDER. PATIENT/CAREGIVER WILL BE ABLE TO VERBALIZE UNDERSTANDING OF MEDICATION REGIMEN AND ACCURATELY TAKE MEDICATIONS PRESCRIBED WITHOUT ADVERSE EFFECTS BY 11/26/25 Goal Provider Goal - PATIENT/CAREGIVER WILL VERBALIZE UNDERSTANDING OF SIGNS AND SYMPTOMS THAT PUT THE PATIENT AT RISK FOR HOSPITALIZATION /EMERGENCY ROOM VISITS, WHEN TO NOTIFY NURSE/PHYSICIAN OF COMPLICATIONS/DECLINE AND WHEN TO CALL 911. Goal Provider Goal - PATIENT / CAREGIVER WILL VERBALIZE / DEMONSTRATE UNDERSTANDING OF PAIN CONTROL MEASURES BY 11/26/25 Goal Provider Goal - PATIENT/CAREGIVER WILL VERBALIZE/DEMONSTRATE UNDERSTANDING OF FALL RISK FACTORS AND IMPLEMENT STRATEGIES TO MINIMIZE FALL RISK. PATIENT/CAREGIVER WILL VERBALIZE/DEMONSTRATE AN ABILITY TO ADHERE TO FALL REDUCTION SELF-MANAGEMENT AND LIFE-STYLE CHANGES BY 11/26/25 Goal Provider Goal - PATIENT / CAREGIVER WILL VERBALIZE/DEMONSTRATE UNDERSTANDING OF MEASURES TO MANAGE ALTERED GENITOURINARY STATUS BY END OF EPISODE. Goal Provider Goal - PATIENT/CAREGIVER WILL VERBALIZE/DEMONSTRATE UNDERSTANDING OF CARE AND MANAGEMENT OF URINARY TRACT INFECTION BY 11/26/25 Progress Notes Progress Notes <paragraph>[Visit Date: 2024 by MEKA CUEVAS RN]:</paragraph><paragraph>START OF CARE VISIT FOR 80 YEAR OLD FEMALE ADMITTED TO SERVICES FOLLOWING A UTI DIAGNOSIS. WENT TO EMERGENCY ROOM WITH WORSENING CONFUSION ON 09/18. DIAGNOSED WITH UTI AND STARTED ON 7 DAY COURSE OF ANTIBIOTICS. PAST MEDICAL HISTORY SIGNIFICANT FOR NEOPLASM RIGHT LUNG, ANXIETY, DEMENTIA.</paragraph><paragraph>LIVES ALONE IN [place]OR [place] WITH BATHROOM ON BOTH FLOORS. AMBULATING INDEPENDENTLY SLOWLY. TWO SONS INVOLVED WITH CARE. SON, BETTY, PRESENT FOR VISIT. SONS TAKE TURNS BRINGING PATIENT TO THEIR HOUSE FOR DINNER EVERY NIGHT TO ENSURE SHE EATS. SON REQUESTING AMBULANCE MECHANIC AND MEALS ON WHEELS. REFERRED TO [facility] FOR THESE SERVICES. REQUESTING ASSISTANCE WITH MEDICATIONS TO ENSURE PATIENT IS TAKING MEDICATION DAILY. PATIENT BECAME INCREASINGLY UPSET AND AGITATED VISIT PROGRESSED WITH SON DESCRIBING MEDICAL CONCERNS.</paragraph><paragraph>VITALS WITHIN NORMAL LIMITS FOR PATIENT. LUNG SOUNDS CLEAR TO AUSCULTATION. DENIES SHORTNESS OF BREATH AT THIS TIME. DENIES ANY PAIN CURRENTLY. STATES APPETITE HAS BEEN FAIR. SON STATES THEY NEED TO REMIND PATIENT TO EAT THROUGHOUT THE DAY. NO GI/ COMPLAINTS. NO WOUNDS NOTED. SON STATES CONFUSION IS STILL WORSE THAN BEFORE UTI, HAD URINALYSIS DONE AT PCP OFFICE YESTERDAY. AWAITING RESULTS. EDUCATED ON IMPORTANCE OF HYDRATION. VERBALIZED UNDERSTANDING. </paragraph><paragraph>VITALS SHEET STARTED IN ADMISSION FOLDER. MAGNET GIVEN TO CAREGIVER AND ADVISED TO CALL [facility] FIRST WITH ANY MEDICAL QUESTIONS OR CONCERNS. DECLINES TELEHEALTH AND TOUCH CALLS AT THIS TIME. </paragraph><paragraph>REMAINS HOMEBOUND DUE TO COGNITIVE IMPAIRMENT, DECREASED STRENGTH, REQUIRES ANOTHER PERSON TO LEAVE HOME.</paragraph> Encounters Start Date/Time End Date/Time Encounter Type Admission Type Attending [facility] Facility Care Department Encounter ID Discharge Date Discharge Status Discharge Condition Discharge Reason Percent Goals Met 2025-09-26 00:00:00 2025-11-24 00:00:00 Outpatient NEW ADMISSION DAVID T[facility]RES [facility] [id number]
== END 2025-09-30 12:12 | disposition other institution (70) ==
PROVIDERS: Physician Assistant; Emergency Provider Emergency Medicine Emergency Medical Services; PCP Internal Medicine
DX: R45.1 Restlessness and agitation (principal); G31.84 Mild cognitive impairment of uncertain or unknown etiology; E87.1 Hypo-osmolality and hyponatremia; Z85.118 Personal history of other malignant neoplasm of bronchus and lung; Z79.899 Other long term (current) drug therapy; Z87.440 Personal history of urinary (tract) infections
CPT/HCPCS: 36415; 80053; 81001; 83690; 85025; 93005; 97161; 97166; 99285; S9485

== ENCOUNTER → 2025-09-27 13:28 | Outpatient (BNV) | payer MEDICARE, OTHER, SELFPAY | PROVIDERS: Emergency Provider Emergency Medicine Emergency Medical Services; PCP Internal Medicine; Visit Provider Internal Medicine | DX: I49.1 Atrial premature depolarization (principal) | CPT/HCPCS: 93010 ==

== ENCOUNTER → 2025-09-27 13:55 | Outpatient (BNV) | payer MEDICARE, OTHER, SELFPAY | PROVIDERS: Emergency Provider Emergency Medicine Emergency Medical Services; PCP Internal Medicine; Visit Provider Psychiatry & Neurology Psychiatry | DX: G30.9 Alzheimer's disease, unspecified (principal); F02.80 Dementia in other diseases classified elsewhere, unspecified severity, without behavioral disturbance, psychotic disturbance, mood disturbance, and anxiety | CPT/HCPCS: 99282 ==